=== PATIENT | female | born 1995 | race Caucasian/White ===

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

== ENCOUNTER 2017-03-01 05:29 | Outpatient (CLI) | payer SELFPAY ==
[~2017-03-01] VITALS: Ht 165.1 cm; Wt 64.0 kg
[~2017-03-01 05:29] MED LIST changes: +ONDA4TAB8 PO
== END 2017-03-01 11:32 ==
LOC: PREOP 05:29
PROVIDERS: ATTEND Obstetrics & Gynecology
DX: Z01.818 Encounter for other preprocedural examination (principal); R10.31 Right lower quadrant pain; R10.2 Pelvic and perineal pain

== ENCOUNTER 2017-03-08 08:03 | Day surgery (SDC) | payer SELFPAY ==
[~2017-03-08] VITALS: Ht 165.1 cm; Wt 64.0 kg
[2017-03-08] MEDS ORDERED: LACTATED RINGERS 1,000 ML IV PRN ×2 (08:28)
[2017-03-08 08:33] LABS: BASOPHILS % (AUTO) 0 % (0-10); EOSINOPHILS # (AUTO) 0.2 10^3/uL (0.0-0.3); EOSINOPHILS % (AUTO) 2 % (0-10); LYMPHOCYTES # (AUTO) 2.4 X 10^3 (1.0-4.0); LYMPHOCYTES % (AUTO) 21 % (12-44); MEAN CORPUSCULAR HEMOGLOBIN 30 PG (25-34); MEAN CORPUSCULAR HGB CONC 34 G/DL (32-36); MEAN CORPUSCULAR VOLUME 88 FL (80-99); MEAN PLATELET VOLUME 9.9 FL (7.4-10.4); MONOCYTES # (AUTO) 0.6 X 10^3 (0.0-1.0); MONOCYTES % (AUTO) 5 % (0-12); NEUTROPHILS # (AUTO) 8.2 X 10^3 (1.8-7.8); NEUTROPHILS % (AUTO) 72 % (42-75); PLATELET COUNT 267 10^3/uL (130-400); RED BLOOD COUNT 4.84 10^6/uL (4.35-5.85); RED CELL DISTRIBUTION WIDTH 12.1 % (10.0-14.5); WHITE BLOOD COUNT 11.3 10^3/uL (4.3-11.0)
[2017-03-08 08:50] VITALS: BP 136/71
[2017-03-08] MEDS ORDERED: DEXAMETHASONE 10 MG/ML (DECADRON) 1 ML VIAL ONE (09:06)
[2017-03-08] MEDS ORDERED: proPOfol 200 MG/20 ML (DIPRIVAN) VIAL IV ONE (09:06)
[2017-03-08] MEDS ORDERED: NEOSTIGMINE (BLOXIVERZ ) 1 MG/1ML 10 ML VIAL ONE (09:06)
[2017-03-08] MEDS ORDERED: MIDAZOLAM 2 MG/2 ML (VERSED) VIAL ONE (09:06)
[2017-03-08] MEDS ORDERED: LIDOCAINE PF 2% 5 ML (XYLOCAINE) VIAL ONE (09:06)
[2017-03-08] MEDS ORDERED: GLYCOPYRROLATE 0.2 MG/ML (ROBINUL) 2 ML VIAL ONE (09:06)
[2017-03-08] MEDS ORDERED: ROCURONIUM 50 MG/5 ML (ZEMURON) VIAL IV ONE (09:06)
[2017-03-08] MEDS ORDERED: ONDANSETRON 4 MG/2 ML (SDV) Z0FRAN ONE (09:06)
[2017-03-08] MEDS ORDERED: SEVOFLURANE (ULTANE) 15 ML INHAL SOLN ONE (09:06)
[2017-03-08] MEDS ORDERED: fentaNYL INJECTION 100 MCG/2 ML AMP ONE (09:06)
[2017-03-08] MEDS ORDERED: BUPIVACAINE 0.25% 30 ML (SENSORCAINE) VIAL ONE (09:10)
[2017-03-08] MEDS ORDERED: D5 LR IV SOLUTION 1,000 ML IV SCH (09:25)
--- NOTE | 2017-03-08 09:25 | Progress Note-Pre Operative ---
Pre-Operative Progress Note H&P Reviewed The H&P was reviewed, patient examined and no changes noted. Date Seen by Provider: Mar 08, 2017 Time Seen by Provider: 09:20 Date H&P Reviewed: Mar 08, 2017 Time H&P Reviewed: 09:15 Pre-Operative Diagnosis: CPP, RLQ pain TANGELA COPELAND DO Mar 08, 2017 9:25 am
--- NOTE | 2017-03-08 09:27 | Discharge Inst-Women's Service ---
Discharge Inst-Women's Serv Depart Medication/Instructions New, Converted or Re-Newed RX: RX on Chart Consults/Follow Up Additional Follow Up: Yes Orders/Referrals Dr. Barrios in 2-3 weeks Activity Activity: Activity as Tolerated Driving Instructions: No Driving for 1 Week NO SMOKING: NO SMOKING Nothing Inside Vagina: No Douching, No [place], No Tampons Diet Discharge Diet: No Restrictions Symptoms to Report to : Bleeding Excessive, Pain Increased, Fever Over 101 Degrees F, Vaginal Bleeding Increase, Questions/Concerns For Any Problems or Questions: Contact Your Physician Skin/Wound Care Infection Signs and Symptoms: Increased Redness, Foul Odor of Wound, Increased Drainage, Skin Itchy or Has a Rash, Increased Swelling, Temperature Above 101 F Operative Area Clean and Dry: Keep Incision Clean/Dry Stitches/Rodrick/Dermabond: Dermabond, Care of Stitches Bathing Instructions: TANGELA Lamar DO Mar 08, 2017 9:27 am
[2017-03-08] MEDS ORDERED: IBUP-1773 PO (09:28)
[2017-03-08] MEDS ORDERED: Hydrocodone Bit/Acetaminophen PO (09:28)
[2017-03-08] MEDS ORDERED: ONDANSETRON 4 MG/2 ML (SDV) Z0FRAN IVP PRN ×2 (09:30→10:15)
[2017-03-08] MEDS ORDERED: HYDROcodone/APAP 5 MG/325 MG (LORTAB) TAB PO PRN (09:30)
[2017-03-08] MEDS ORDERED: KETOROLAC 30 MG/ML VIAL IVP ONE (09:30)
[2017-03-08] MEDS ORDERED: IBUPROFEN 600 MG (MOTRIN) TAB PO PRN (09:30)
[2017-03-08] MEDS: HYDROmorphone (DILAUDID) 2 MG/ML VIAL IVP PRN ×4 (10:40→11:10)
--- NOTE | 2017-03-08 11:23 | Anesthesia-General Post-Op ---
General Patient Condition Mental Status/LOC: Same as Preop Cardiovascular: Satisfactory Nausea/Vomiting: Absent Respiratory: Satisfactory Pain: Controlled Complications: Absent Post Op Complications Complications None Follow Up Care/Instructions Patient Instructions None needed. Anesthesia/Patient Condition Patient Condition Patient is doing well, no complaints, stable vital signs, no apparent adverse anesthesia problems. No complications reported per nursing. [place] [facility] [place] Yes RACHEL LAKHANI DO Mar 08, 2017 11:23
[2017-03-08 11:35] VITALS: BP 116/60
[2017-03-08 12:05] VITALS: BP 118/67
[2017-03-08] MEDS ORDERED: HYDROcodone/APAP 5 MG/325 MG (LORTAB) TAB ONE (12:11)
[2017-03-08 12:26] VITALS: BP 118/67
[2017-03-08] MEDS ORDERED: BUPIVACAINE 0.25% 30 ML (SENSORCAINE) VIAL INJ ONE (12:45)
--- NOTE | 2017-03-08 13:13 | OPERATIVE REPORT ---
DATE OF SERVICE: PREOPERATIVE DIAGNOSIS: 1. A 21-year-old female with right lower quadrant pain. 2. Chronic pelvic pain. POSTOPERATIVE DIAGNOSIS: 1. A 21-year-old female with right lower quadrant pain. 2. Chronic pelvic pain. PROCEDURE: Laparoscopic lysis of adhesions. SURGEON: Dr. Tangela Copeland. ANESTHESIA: General endotracheal. EBL: Minimal. URINE OUTPUT : 100 mL clear at the end of the procedure. FLUIDS: 1200 mL of Ringer solution. FINDINGS: An anterior abdominal wall lower pelvic adhesion of the omentum running from the anterior abdominal wall at the level of the uterus all the way up to the right pelvic sidewall at approximately the level of the appendix. Otherwise, grossly normal upper abdominal anatomy and pelvic anatomy. SPECIMEN SENT: None. INDICATIONS FOR PROCEDURE: This 21-year-old female is a self consultation to myself for ongoing issues with chronic pelvic pain. The patient reports in the past year to year and a half she has had significant amounts of pelvic pain, especially whenever she is on her menstrual cycle, which she states lasts anywhere from 7 to 14 days. She was been on Depo-Provera and tried oral contraceptive pills in the past. Neither one of these have helped alleviate her symptoms. She has also been on Motrin, ibuprofen, Aleve and even hydrocodone which none of these have alleviated her symptoms either. I discussed with the patient in the preoperative consultation of proceeding with diagnostic laparoscopy. We discussed the possibility of finding nothing versus the possibility of finding underlying etiology including endometriosis and treatment at that time. After all of the possibilities were discussed and the risk of the procedure discussed with the patient in detail and after all of those were discussed with the patient and her boyfriend, all of their questions were answered. The patient was agreeable to proceed. Consent was obtained in the preoperative area. The patient was taken to the operating room. OPERATIVE REPORT IN DETAIL: Once in the operating room, general anesthesia found to be adequate, placed in dorsal lithotomy position, prepped and draped in normal sterile fashion. A Wahl catheter was placed using sterile technique. A weighted speculum was inserted into the patient's vagina which was used to visualize the cervix. It is grasped at the 12 o'clock position using long Allis clamp. The cervix and uterus is gently sounded using the uterine sound and found to have a cavity depth of [address] a WAFU uterine manipulator at a depth of 8 cm deploying the balloon and remove all the other instruments from the patient's vagina except for the Wahl catheter. This offers excellent bimanual manipulation on palpation of the lower abdomen. I then performed a change of gloves, taking my attention to the abdomen where I infiltrate the infraumbilical area using 0.25% Marcaine to make a 5 mm incision and direct a Veress needle through this incision until intraperitoneal placement was confirmed with a saline drop test. An opening pressure of 4 mmHg was noted. I proceed to mesh pressure of 50 mmHg, at which point I remove the Veress needle and introduce a 5 mm blunt trocar through this incision and confirm intraperitoneal placement using the 5 mm laparoscope. Once this was done, I am able to confirm all of my findings as listed in my findings above. I have the patient placed in steep Trendelenburg to evaluate the pelvis even more thoroughly and there are no abnormalities. Both fallopian tubes, ovaries and uterus all appear grossly normal. No evidence of endometriosis or prior pelvic inflammatory disease or infection. No evidence of hydrosalpinx. The only abnormality I am able to find is adhesions of the omentum to the anterior abdominal wall which I take down using EndoShears without difficulty. I do not have to use monopolar power as there is no bleeding when I take this adhesion down. After which there is no active bleeding noted from any of my dissection planes. I remove the instruments from the patient. I do have to place a second suprapubic trocar that is 5 mm in similar fashion in order to take down these adhesions. At the end of the procedure, I remove the instruments and release insufflation through both of these trocar sites and remove these trocars. The skin is then closed using Dermabond and Band-Aids were placed over this. The Kronner uterine manipulator was removed and the Wahl catheter was removed. The patient tolerated the procedure well and was taken to recovery in stable condition. Lap and sponge counts correct at the end of the procedure. Instrument counts correct as well. Job ID: [id number] DocumentID: [id number] Dictated Date: 03/08/2017 10:38:07 Special Deputy Sheriff Date: 03/08/2017 13:13:39 Dictated By: TANGELA COPELAND DO
== END 2017-03-08 12:26 | disposition home or self-care (01) ==
LOC: SDC 08:03
PROVIDERS: ATTEND Obstetrics & Gynecology
DX: R10.31 Right lower quadrant pain (principal); R10.2 Pelvic and perineal pain; F17.210 Nicotine dependence, cigarettes, uncomplicated; F32.9 Major depressive disorder, single episode, unspecified
CPT/HCPCS: 36415; 84703; 85025; 86850; 86900; 86901

== ENCOUNTER 2017-11-10 00:31 | Emergency (ER) | payer SELFPAY ==
[~2017-11-10] VITALS: Ht 167.6 cm; Wt 68.0 kg
[~2017-11-10 00:31] MED LIST changes: +Hydrocodone Bit/Acetaminophen PO; +IBUP-1773 PO
--- OUTSIDE RECORDS SUMMARY | 2017-11-10 00:40 | XMS REPORT | Continuity of Care Document ---
Author Author [facility] Organization [facility] Address Unknown Phone Unavailable Allergies Active Description Code Type Severity Reaction Onset Reported/Identified Relationship to Patient Clinical Status Yes No Known Drug Allergies [id number] Drug Allergy Unknown N/A 02/26/2008 Yes amoxicillin [id number] Drug Allergy Unknown n/v 11/21/2016 Yes morphine [id number] Drug Allergy Unknown rash 11/21/2016 Medications There is no data. Problems Date Dx Coded Attending Type Code Diagnosis Diagnosed By 06/07/2012 Ot 380.4 IMPACTED CERUMEN 06/07/2012 Ot 388.70 OTALGIA NOS 06/11/2013 ANNMARIE GOMEZ BLUEPRINT CLERK Ot 686.9 LOCAL SKIN INFECTION NOS 06/17/2014 [...] Ot E888.1 FALL STRIKING OBJECT NEC 07/23/2014 STACI AVILA MD Ot 789.00 09/27/2014 STACI AVILA MD Ot 719.43 09/27/2014 STACI AVILA MD Ot 724.5 09/27/2014 STACI AVILA MD Ot 786.50 09/27/2014 STACI AVILA MD Ot 789.01 09/27/2014 STACI AVILA MD Ot 789.00 09/27/2014 ANNMARIE GOMEZ BLUEPRINT CLERK Ot 686.9 LOCAL SKIN INFECTION NOS 09/27/2014 ANNMARIE GOMEZ BLUEPRINT CLERK Ot 709.9 SKIN DISORDER NOS 08/31/2015 NABIL ZABALA Ot R10.84 GENERALIZED ABDOMINAL PAIN 08/31/2015 NABIL ZABALA Ot R11.2 NAUSEA WITH VOMITING, UNSPECIFIED 08/31/2015 STACI AVILA MD Ot 719.43 JOINT PAIN-FOREARM 08/31/2015 STACI AVILA MD Ot 724.5 BACKACHE NOS 08/31/2015 STCAI AVILA MD Ot 786.50 CHEST PAIN NOS 08/31/2015 STACI AVILA MD Ot 789.01 ABDOMINAL PAIN, RIGHT UPPER QUADRANT 08/31/2015 STACI AVILA MD Ot 789.00 ABDOMINAL PAIN, UNSPECIFIED SITE 09/01/2015 NABIL ZABALA Ot R10.84 GENERALIZED ABDOMINAL PAIN 09/01/2015 NABIL [...] Ot L02.412 CUTANEOUS ABSCESS OF LEFT AXILLA 11/17/2015 JAKE RODRICK Ot Z53.9 PROCEDURE AND TREATMENT NOT CARRIED OUT, 11/18/2015 RODRICK JOSEPH DO Ot Z53.9 PROCEDURE AND TREATMENT NOT CARRIED OUT, 06/16/2016 STACI AVILA MD Ot 719.43 JOINT PAIN-FOREARM 06/16/2016 STACI AVILA MD Ot 724.5 BACKACHE NOS 06/16/2016 STACI AVILA MD Ot 786.50 CHEST PAIN NOS 06/16/2016 STACI AVILA MD Ot 789.01 ABDOMINAL PAIN, RIGHT UPPER QUADRANT 06/16/2016 STACI AVILA MD Ot 789.00 ABDOMINAL PAIN, UNSPECIFIED SITE 06/16/2016 ANNMARIE GOMEZ APRN Ot S63.501A UNSPECIFIED SPRAIN OF RIGHT WRIST, INITI 06/16/2016 ANNMARIE GOMEZ APRN Ot S69.91XA UNSP INJURY OF RIGHT WRIST, HAND AND FIN 06/16/2016 ANNMARIE GOMEZ APRN Ot W01.0XXA FALL SAME LEV FROM SLIP/TRIP W/O STRIKE 06/16/2016 ANNMARIE GOMEZ APRN Ot Y99.8 OTHER EXTERNAL CAUSE STATUS 06/22/2016 ANNMARIE GOMEZ APRN Ot S63.501A UNSPECIFIED SPRAIN OF RIGHT WRIST, INITI 06/22/2016 ANNMARIE GOMEZ APRN Ot S69.91XA UNSP INJURY OF RIGHT WRIST, HAND AND FIN 06/22/2016 ANNMARIE GOMEZ APRN Ot W01.0XXA FALL SAME LEV FROM SLIP/TRIP W/O STRIKE 06/22/2016 ANNMARIE GOMEZ APRN Ot Y99.8 OTHER EXTERNAL CAUSE STATUS 09/27/2016 STACI AVILA MD Ot 719.43 JOINT PAIN-FOREARM 09/27/2016 STACI AVILA MD Ot 724.5 BACKACHE NOS 09/27/2016 STACI AVILA MD Ot 786.50 CHEST PAIN NOS 09/27/2016 STACI AVILA MD Ot 789.01 ABDOMINAL PAIN, RIGHT UPPER QUADRANT 09/27/2016 STACI AVILA MD Ot 789.00 ABDOMINAL PAIN, UNSPECIFIED SITE 10/03/2016 SHELTON DESAI DO Ot N92.1 EXCESSIVE AND FREQUENT MENSTRUATION WITH 10/03/2016 SHELTON DESAI DO Ot R10.31 RIGHT LOWER QUADRANT PAIN 10/03/2016 STACI AVILA MD Ot 719.43 JOINT PAIN-FOREARM 10/03/2016 STACI AVILA MD Ot 724.5 BACKACHE NOS 10/03/2016 MARGARITA GONZALES, STACI Pike Ot 786.50 CHEST PAIN NOS 10/03/2016 MARGARITA GONZALES, STACI Pike Ot 789.01 ABDOMINAL PAIN, RIGHT UPPER QUADRANT 10/03/2016 MARGARITA GONZALES, STACI Pike Ot 789.00 ABDOMINAL PAIN, UNSPECIFIED SITE 10/11/2016 DESAI DO, SHELTON C Ot N92.1 EXCESSIVE AND FREQUENT MENSTRUATION WITH 10/11/2016 DESAI DO, SHELTON C Ot R10.31 RIGHT LOWER QUADRANT PAIN 10/11/2016 MARGARITA GONZALES, STACI Pike Ot 719.43 JOINT PAIN-FOREARM 10/11/2016 MARGARITA GONZALES, STACI Pike Ot 724.5 BACKACHE NOS 10/11/2016 MARGARITA GONZALES, STACI Pike Ot 786.50 CHEST PAIN NOS 10/11/2016 MARGARITA GONZALES, STACI Pike Ot 789.01 ABDOMINAL PAIN, RIGHT UPPER QUADRANT 10/11/2016 MARGARITA GONZALES, STACI Pkie Ot 789.00 ABDOMINAL PAIN, UNSPECIFIED SITE 10/11/2016 DESAI DO, SHELTON C Ot N92.1 EXCESSIVE AND FREQUENT MENSTRUATION WITH 10/11/2016 DESAI DO, SHELTON C Ot R10.31 RIGHT LOWER QUADRANT PAIN 11/13/2016 ANNMARIE GOMEZ APRN Ot F41.9 ANXIETY DISORDER, UNSPECIFIED 11/13/2016 ANNMARIE GOMEZ APRN Ot M25.531 PAIN IN RIGHT WRIST 11/13/2016 ANNMARIE GOMEZ BLUEPRINT CLERK Ot S63.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 TRAUM RUPTURE OF [facility] LIGMT OF L IDX FNG 11/13/2016 ANNMARIE GOMEZ APRN Ot W10.1XXA FALL (ON)(FROM) SIDEWALK CURB, INITIAL E 11/13/2016 ANNMARIE GOMEZ APRN Ot Y92.[address] [facility] [address] 11/13/2016 ANNMARIE GOMEZ APRN Ot Z87.19 PERSONAL HISTORY OF OTHER DISEASES OF TH 11/13/2016 ANNMARIE GOMEZ APRN Ot Z87.448 PERSONAL HISTORY OF OTHER DISEASES OF UR 11/18/2016 OMID GONZALES, VINITA Tellez Ot F17.210 NICOTINE DEPENDENCE, CIGARETTES, UNCOMPL 11/18/2016 OMID GONZALES, VINITA Tellez Ot F41.9 ANXIETY DISORDER, UNSPECIFIED 11/18/2016 VINITA ANNE MD Ot R10.31 RIGHT LOWER QUADRANT PAIN 11/18/2016 VINITA ANNE MD Ot R11.2 NAUSEA WITH VOMITING, UNSPECIFIED 11/18/2016 VINITA ANNE MD Ot Z87.19 PERSONAL HISTORY OF OTHER DISEASES OF TH 11/18/2016 VINITA ANNE MD Ot Z87.448 PERSONAL HISTORY OF OTHER DISEASES OF UR 11/21/2016 NABIL ZABALA Ot F17.210 NICOTINE DEPENDENCE, CIGARETTES, UNCOMPL 11/21/2016 NABIL ZABALA Ot F41.9 ANXIETY DISORDER, UNSPECIFIED 11/21/2016 NABIL ZABALA Ot 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, UNSP 11/21/2016 NABIL ZABALA Ot R10.2 PELVIC AND PERINEAL PAIN 11/21/2016 NAIBL ZABALA Ot Z87.19 PERSONAL HISTORY OF OTHER DISEASES OF TH 11/21/2016 NABIL ZABALA Ot Z87.42 PERSONAL HISTORY OF OTH DISEASES OF THE 12/20/2016 RISHI PAL MD Ot F41.9 ANXIETY DISORDER, UNSPECIFIED 12/20/2016 RISHI PAL MD Ot R10.31 RIGHT LOWER QUADRANT PAIN 12/20/2016 RISHI PAL MD Ot Z77.22 CNTCT W AND EXPSR TO ENVIRON TOBACCO SMO 12/20/2016 RISHI PAL MD Ot Z87.19 PERSONAL HISTORY OF OTHER DISEASES OF 12/20/2016 RISHI PAL MD Ot Z87.448 PERSONAL HISTORY OF OTHER DISEASES OF UR 01/01/2017 STACI AVILA MD Ot 719.43 JOINT PAIN-FOREARM 01/01/2017 STACI AVILA MD Ot 724.5 BACKACHE NOS 01/01/2017 STACI AVILA MD Ot 786.50 CHEST PAIN NOS 01/01/2017 STACI AVILA MD Ot 789.01 ABDOMINAL PAIN, RIGHT UPPER QUADRANT 01/01/2017 STACI AVILA MD Ot 789.00 ABDOMINAL PAIN, UNSPECIFIED SITE 01/01/2017 SHELTON DESAI DO Ot N92.1 EXCESSIVE AND FREQUENT MENSTRUATION WITH 01/01/2017 SHELTON DESAI DO Ot R10.31 RIGHT LOWER QUADRANT PAIN 03/01/2017 TANGELA COPELAND DO S Ot R10.2 PELVIC AND PERINEAL PAIN 03/01/2017 TANGELA COPELAND DO Ot R10.31 RIGHT LOWER QUADRANT PAIN 03/01/2017 TANGELA COPELAND DO Ot Z01.818 ENCOUNTER FOR OTHER PREPROCEDURAL EXAMIN 03/08/2017 TANGELA COPELAND DO Ot F17.210 NICOTINE DEPENDENCE, CIGARETTES, UNCOMPL 03/08/2017 TANGELA COPELAND DO Ot F32.9 MAJOR DEPRESSIVE DISORDER, SINGLE EPISOD 03/08/2017 TANGELA COPELAND DO Ot R10.2 PELVIC AND PERINEAL PAIN 03/08/2017 TANGELA COPELAND DO Ot R10.31 RIGHT LOWER QUADRANT PAIN 03/14/2017 TAGNELA COPELAND DO Ot F17.210 NICOTINE DEPENDENCE, CIGARETTES, UNCOMPL 03/14/2017 TANGELA COPELAND DO Ot F32.9 MAJOR DEPRESSIVE DISORDER, SINGLE EPISOD 03/14/2017 TANGELA COPELAND DO Ot R10.2 PELVIC AND PERINEAL PAIN 03/14/2017 TANGELA COPELAND DO Ot R10.31 RIGHT LOWER QUADRANT PAIN 03/21/2017 TANGELA COPELAND DO Ot F17.210 NICOTINE DEPENDENCE, CIGARETTES, UNCOMPL 03/21/2017 TANGELA COPELAND DO Ot F32.9 MAJOR DEPRESSIVE DISORDER, SINGLE EPISOD 03/21/2017 TANGELA COPELAND DO Ot R10.2 PELVIC AND PERINEAL PAIN 03/21/2017 TANGELA COPELAND DO Ot R10.31 RIGHT LOWER QUADRANT PAIN Procedures There is no data. Results Test Result Range Gram stain microscopy - 11/14/15 12:55 GRAM STAIN RESULT FEW GRAM POSITIVE COCCI NRG Bacteria identification in wound by culture - 11/14/15 12:55 Bacteria identification in wound by culture [id number] NR FREE TEXT EXTERNAL SENSITIVITY REPORTED AT 1625, 11-15-15 NRG QUANTITY OF GROWTH Abundant Growth NRG CALL POSITIVES (F1 HELP) CALLED TO ED/MATEUSZ AT 0952, 11-15-2015/KD NRG PBP2 MRSA isolated (Screening test for MRSA is positive) NR Bacterial susceptibility panel - 11/14/15 12:55 Oxacillin susceptibility test by minimum inhibitory concentration > = NRG Gentamicin susceptibility test by minimum inhibitory concentration < = NRG Clindamycin susceptibility test by minimum inhibitory [...] test by minimum inhibitory concentration R NRG Comp. Metabolic Panel (14) - 02/03/16 12:57 Glucose, Serum 98 mg/dL 65-99 BUN 6 mg/dL 6-20 Creatinine, Serum 0.85 mg/dL 0.57-1.00 eGFR If NonAfricn Am 100 mL/min/1.73 >59 eGFR If Africn Am 116 mL/min/1.73 >59 BUN/Creatinine Ratio 7 8-20 Sodium, Serum 144 mmol/L 136-144 Potassium, Serum 4.6 mmol/L 3.5-5.2 Chloride, Serum 106 mmol/L 97-106 Carbon Dioxide, Total 25 mmol/L 18-29 Calcium, Serum 10.0 mg/dL 8.7-10.2 Protein, Total, Serum 7.0 g/dL 6.0-8.5 Albumin, Serum 4.9 g/dL 3.5-5.5 Globulin, Total 2.1 g/dL 1.5-4.5 A/G Ratio 2.3 1.1-2.5 Bilirubin, Total 0.3 mg/dL 0.0-1.2 Alkaline Phosphatase, S 82 IU/L 43-101 AST (SGOT) 21 IU/L 0-40 ALT (SGPT) 23 IU/L 0-32 TSH - 02/03/16 12:57 TSH 1.050 uIU/mL 0.450-4.500 Urine beta human chorionic gonadotropin (hCG) measurement - 11/18/16 06:15 Urine beta human chorionic gonadotropin (hCG) measurement NEGATIVE NEGATIVE Comprehensive metabolic panel - 11/18/16 06:15 Serum or plasma sodium measurement (moles/volume) 142 mmol/L 135-145 Serum or plasma potassium measurement (moles/volume) 3.6 mmol/L 3.6-5.0 Serum or plasma chloride measurement (moles/volume) 112 mmol/L 98-107 Carbon dioxide 18 mmol/L 21-32 Serum or plasma anion gap determination (moles/volume) 12 mmol/L 5-14 Serum or plasma urea nitrogen measurement (mass/volume) 5 mg/dL 7-18 Serum or plasma creatinine measurement (mass/volume) 0.78 mg/dL 0.60-1.30 Serum or plasma urea nitrogen/creatinine mass ratio 6 NRG Serum or plasma creatinine measurement with calculation of estimated glomerular filtration rate > NRG Serum or plasma glucose measurement (mass/volume) 99 mg/dL 70-105 Serum or plasma calcium measurement (mass/volume) 10.1 mg/dL 8.5-10.1 Serum or plasma total bilirubin measurement (mass/volume) 0.4 mg/dL 0.1-1.0 Serum or plasma alkaline phosphatase measurement (enzymatic activity/volume) 92 U/L 40-136 Serum or plasma aspartate aminotransferase measurement (enzymatic activity/ volume) 22 U/L 5-34 Serum or plasma alanine aminotransferase measurement (enzymatic activity/volume ) 29 U/L 0-55 Serum or plasma protein measurement (mass/volume) 7.2 g/dL 6.4-8.2 Serum or plasma albumin measurement (mass/volume) 4.5 g/dL 3.2-4.5 Complete blood count (CBC) with automated white blood cell (WBC) differential - 11/18/16 06:15 Blood leukocytes automated count (number/volume) 9.2 10*3/uL 4.3-11.0 Blood erythrocytes automated count (number/volume) 4.90 10*6/uL 4.35-5.85 Venous blood hemoglobin measurement (mass/volume) 14.6 g/dL 11.5-16.0 Blood hematocrit (volume fraction) 43 % 35-52 Automated erythrocyte mean corpuscular volume 88 [foz_us] 80-99 Automated erythrocyte mean corpuscular hemoglobin (mass per erythrocyte) 30 pg 25-34 Automated erythrocyte mean corpuscular hemoglobin concentration measurement ( mass/volume) 34 g/dL 32-36 Automated erythrocyte distribution width ratio 12.3 % 10.0-14.5 Automated blood platelet count (count/volume) 282 10*3/uL 130-400 Automated blood platelet mean volume measurement 10.8 [foz_us] 7.4-10.4 Automated blood neutrophils/100 leukocytes 53 % 42-75 Automated blood lymphocytes/100 leukocytes 38 % 12-44 Blood monocytes/100 leukocytes 7 % 0-12 Automated blood eosinophils/100 leukocytes 2 % 0-10 Automated blood basophils/100 leukocytes 1 % 0-10 Blood neutrophils automated count (number/volume) 4.9 10*3 1.8-7.8 Blood lymphocytes automated count (number/volume) 3.5 10*3 1.0-4.0 Blood monocytes automated count (number/volume) 0.7 10*3 0.0-1.0 Automated eosinophil count 0.2 10*3/uL 0.0-0.3 Automated blood basophil count (count/volume) 0.1 10*3/uL 0.0-0.1 Complete urinalysis with reflex to culture - 11/18/16 06:25 Urine color determination YELLOW NRG Urine clarity determination CLEAR NRG Urine pH measurement by test strip 6 5-9 Specific gravity of urine by test strip 1.025 1.016- 1.022 Urine protein assay by test strip, semi-quantitative NEGATIVE NEGATIVE Urine glucose detection by automated test strip NEGATIVE NEGATIVE Erythrocytes detection in urine sediment by light microscopy NEGATIVE NEGATIVE Urine ketones detection by automated test strip NEGATIVE NEGATIVE Urine nitrite detection by test strip NEGATIVE NEGATIVE Urine total bilirubin detection by test strip NEGATIVE NEGATIVE Urine urobilinogen measurement by automated test strip (mass/volume) NORMAL NORMAL Urine leukocyte esterase detection by dipstick 1+ NEGATIVE Automated urine sediment erythrocyte count by microscopy (number/high power field) NONE NRG Automated urine sediment leukocyte count by microscopy (number/high power field ) RARE NRG Bacteria detection in urine sediment by light microscopy NEGATIVE NRG Squamous epithelial cells detection in urine sediment by light microscopy 2-5 NRG Crystals detection in urine sediment by light microscopy PRESENT NRG Casts detection in urine sediment by light microscopy NONE NRG Mucus detection in urine sediment by light microscopy LARGE NRG Complete urinalysis with reflex to culture NO NRG Calcium oxalate crystals detection in urine sediment by light microscopy RARE NRG Complete urinalysis with reflex to culture - 11/21/16 15:50 Urine color determination YELLOW NRG Urine clarity determination CLEAR NRG Urine pH measurement by test strip 7 5-9 Specific gravity of urine by test strip 1.010 1.016- 1.022 Urine protein assay by test strip, semi-quantitative NEGATIVE NEGATIVE Urine glucose detection by automated test strip NEGATIVE NEGATIVE Erythrocytes detection in urine sediment by light microscopy NEGATIVE NEGATIVE Urine ketones detection by automated test strip NEGATIVE NEGATIVE Urine nitrite detection by test strip NEGATIVE NEGATIVE Urine total bilirubin detection by test strip NEGATIVE NEGATIVE Urine urobilinogen measurement by automated test strip (mass/volume) NORMAL NORMAL Urine leukocyte esterase detection by dipstick 1+ NEGATIVE Automated urine sediment erythrocyte count by microscopy (number/high power field) NONE NRG Automated urine sediment leukocyte count by microscopy (number/high power field ) [HPF] NRG Bacteria detection in urine sediment by light microscopy NEGATIVE NRG Squamous epithelial cells detection in urine sediment by light microscopy 2-5 NRG Crystals detection in urine sediment by light microscopy NONE NRG Casts detection in urine sediment by light microscopy NONE NRG Mucus detection in urine sediment by light microscopy SMALL NRG Complete urinalysis with reflex to culture NO NRG Complete blood count (CBC) with automated white blood cell (WBC) differential - 11/21/16 15:55 Blood leukocytes automated count (number/volume) 7.7 10*3/uL 4.3-11.0 Blood erythrocytes automated count (number/volume) 4.54 10*6/uL 4.35-5.85 Venous blood hemoglobin measurement (mass/volume) 13.6 g/dL 11.5-16.0 Blood hematocrit (volume fraction) 41 % 35-52 Automated erythrocyte mean corpuscular volume 89 [foz_us] 80-99 Automated erythrocyte mean corpuscular hemoglobin (mass per erythrocyte) 30 pg 25-34 Automated erythrocyte mean corpuscular hemoglobin concentration measurement ( mass/volume) 34 g/dL 32-36 Automated erythrocyte distribution width ratio 12.0 % 10.0-14.5 Automated blood platelet count (count/volume) 254 10*3/uL 130-400 Automated blood platelet mean volume measurement 10.0 [foz_us] 7.4-10.4 Automated blood neutrophils/100 leukocytes 52 % 42-75 Automated blood lymphocytes/100 leukocytes 39 % 12-44 Blood monocytes/100 leukocytes 6 % 0-12 Automated blood eosinophils/100 leukocytes 2 % 0-10 Automated blood basophils/100 leukocytes 1 % 0-10 Blood neutrophils automated count (number/volume) 4.0 10*3 1.8-7.8 Blood lymphocytes automated count (number/volume) 3.0 10*3 1.0-4.0 Blood monocytes automated count (number/volume) 0.4 10*3 0.0-1.0 Automated eosinophil count 0.2 10*3/uL 0.0-0.3 Automated blood basophil count (count/volume) 0.1 10*3/uL 0.0-0.1 Comprehensive metabolic panel - 11/21/16 15:55 Serum or plasma sodium measurement (moles/volume) 139 mmol/L 135-145 Serum or plasma potassium measurement (moles/volume) 3.5 mmol/L 3.6-5.0 Serum or plasma chloride measurement (moles/volume) 108 mmol/L 98-107 Carbon dioxide 27 mmol/L 21-32 Serum or plasma anion gap determination (moles/volume) 4 mmol/L 5-14 Serum or plasma urea nitrogen measurement (mass/volume) 5 mg/dL 7-18 Serum or plasma creatinine measurement (mass/volume) 0.71 mg/dL 0.60-1.30 Serum or plasma urea nitrogen/creatinine mass ratio 7 NRG Serum or plasma creatinine measurement with calculation of estimated glomerular filtration rate > NRG Serum or plasma glucose measurement (mass/volume) 95 mg/dL 70-105 Serum or plasma calcium measurement (mass/volume) 8.9 mg/dL 8.5-10.1 Serum or plasma total bilirubin measurement (mass/volume) 0.2 mg/dL 0.1-1.0 Serum or plasma alkaline phosphatase measurement (enzymatic activity/volume) 80 U/L 40-136 Serum or plasma aspartate aminotransferase measurement (enzymatic activity/ volume) 21 U/L 5-34 Serum or plasma alanine aminotransferase measurement (enzymatic activity/volume ) 29 U/L 0-55 Serum or plasma protein measurement (mass/volume) 6.3 g/dL 6.4-8.2 Serum or plasma albumin measurement (mass/volume) 4.0 g/dL 3.2-4.5 Lipase - 11/21/16 15:55 Lipase 21 U/L 8-78 Serum or plasma C reactive protein measurement (mass/volume) - 11/21/16 15:55 Serum or plasma C reactive protein measurement (mass/volume) 0.02 mg /dL 0.00-0.50 Serum reagin antibody assay (units/volume) by RPR - 11/21/16 15:55 Serum reagin antibody assay (units/volume) by RPR Non-Reactive NRG Bacteria identification in genital specimen by aerobe culture - 11/21/16 18:45 FREE TEXT EXTERNAL PLUS MODERATE NORMAL GURDEEP NRG QUANTITY OF GROWTH Scant Growth NRG Bacteria identification in genital specimen by aerobe culture [id number] NRG Microscopic examination by wet preparation - 11/21/16 18:45 WET PREP RESULTS NO CLUE CELLS OBSERVED NRG Neisseria gonorrhoeae DNA detection by probe and signal amplification method - 11/21/16 18:45 Gonorrhea amp DNA-urine Not Detected Not Detected Chlamydia trachomatis DNA detection by probe and signal amplification method - 11/21/16 18:45 Chlamydia trachomatis DNA detection by probe and target amplification method Not Detected Not Detected Complete blood count (CBC) with automated white blood cell (WBC) differential - 12/19/16 23:32 Blood leukocytes automated count (number/volume) 13.2 10*3/uL 4.3-11.0 Blood erythrocytes automated count (number/volume) 4.65 10*6/uL 4.35-5.85 Venous blood hemoglobin measurement (mass/volume) 13.9 g/dL 11.5-16.0 Blood hematocrit (volume fraction) 40 % 35-52 Automated erythrocyte mean corpuscular volume 87 [foz_us] 80-99 Automated erythrocyte mean corpuscular hemoglobin (mass per erythrocyte) 30 pg 25-34 Automated erythrocyte mean corpuscular hemoglobin concentration measurement ( mass/volume) 34 g/dL 32-36 Automated erythrocyte distribution width ratio 11.9 % 10.0-14.5 Automated blood platelet count (count/volume) 281 10*3/uL 130-400 Automated blood platelet mean volume measurement 10.0 [foz_us] 7.4-10.4 Automated blood neutrophils/100 leukocytes 72 % 42-75 Automated blood lymphocytes/100 leukocytes 21 % 12-44 Blood monocytes/100 leukocytes 6 % 0-12 Automated blood eosinophils/100 leukocytes 1 % 0-10 Automated blood basophils/100 leukocytes 0 % 0-10 Blood neutrophils automated count (number/volume) 9.5 10*3 1.8-7.8 Blood lymphocytes automated count (number/volume) 2.8 10*3 1.0-4.0 Blood monocytes automated count (number/volume) 0.8 10*3 0.0-1.0 Automated eosinophil count 0.2 10*3/uL 0.0-0.3 Automated blood basophil count (count/volume) 0.0 10*3/uL 0.0-0.1 Comprehensive metabolic panel - 12/19/16 23:32 Serum or plasma sodium measurement (moles/volume) 140 mmol/L 135-145 Serum or plasma potassium measurement (moles/volume) 3.5 mmol/L 3.6-5.0 Serum or plasma chloride measurement (moles/volume) 110 mmol/L 98-107 Carbon dioxide 19 mmol/L 21-32 Serum or plasma anion gap determination (moles/volume) 11 mmol/L 5-14 Serum or plasma urea nitrogen measurement (mass/volume) 6 mg/dL 7-18 Serum or plasma creatinine measurement (mass/volume) 0.80 mg/dL 0.60-1.30 Serum or plasma urea nitrogen/creatinine mass ratio 8 NRG Serum or plasma creatinine measurement with calculation of estimated glomerular filtration rate > NRG Serum or plasma glucose measurement (mass/volume) 79 mg/dL 70-105 Serum or plasma calcium measurement (mass/volume) 9.3 mg/dL 8.5-10.1 Serum or plasma total bilirubin measurement (mass/volume) 0.6 mg/dL 0.1-1.0 Serum or plasma alkaline phosphatase measurement (enzymatic activity/volume) 80 U/L 40-136 Serum or plasma aspartate aminotransferase measurement (enzymatic activity/ volume) 14 U/L 5-34 Serum or plasma alanine aminotransferase measurement (enzymatic activity/volume ) 23 U/L 0-55 Serum or plasma protein measurement (mass/volume) 6.8 g/dL 6.4-8.2 Serum or plasma albumin measurement (mass/volume) 4.3 g/dL 3.2-4.5 Serum or plasma C reactive protein measurement (mass/volume) - 12/19/16 23:32 Serum or plasma C reactive protein measurement (mass/volume) 0.10 mg /dL 0.00-0.50 Complete urinalysis with reflex to culture - 12/19/16 23:32 Urine color determination YASH NRG Urine clarity determination CLEAR NRG Urine pH measurement by test strip 6 5-9 Specific gravity of urine by test strip 1.025 1.016- 1.022 Urine protein assay by test strip, semi-quantitative NEGATIVE NEGATIVE Urine glucose detection by automated test strip NEGATIVE NEGATIVE Erythrocytes detection in urine sediment by light microscopy NEGATIVE NEGATIVE Urine ketones detection by automated test strip NEGATIVE NEGATIVE Urine nitrite detection by test strip NEGATIVE NEGATIVE Urine total bilirubin detection by test strip 1+ NEGATIVE Urine urobilinogen measurement by automated test strip (mass/volume) NORMAL NORMAL Urine leukocyte esterase detection by dipstick 2+ NEGATIVE Automated urine sediment erythrocyte count by microscopy (number/high power field) NONE NRG Automated urine sediment leukocyte count by microscopy (number/high power field ) NONE NRG Bacteria detection in urine sediment by light microscopy NEGATIVE NRG Squamous epithelial cells detection in urine sediment by light microscopy 0-2 NRG Crystals detection in urine sediment by light microscopy NONE NRG Casts detection in urine sediment by light microscopy NONE NRG Mucus detection in urine sediment by light microscopy SMALL NRG Complete urinalysis with reflex to culture NO NRG Urine beta human chorionic gonadotropin (hCG) measurement - 12/19/16 23:32 Urine beta human chorionic gonadotropin (hCG) measurement NEGATIVE NEGATIVE Urine drug screening test - 12/19/16 23:32 Urine phencyclidine detection by screening method NEGATIVE NEGATIVE Urine benzodiazepines detection by screening method NEGATIVE NEGATIVE Urine cocaine detection NEGATIVE NEGATIVE Urine amphetamines detection by screening method NEGATIVE NEGATIVE Urine methamphetamine detection by screening method NEGATIVE NEGATIVE Urine cannabinoids detection by screening method POSITIVE NEGATIVE Urine opiates detection by screening method NEGATIVE NEGATIVE Urine barbiturates detection NEGATIVE NEGATIVE Screening urine tricyclic antidepressants detection NEGATIVE NEGATIVE Urine methadone detection by screening method NEGATIVE NEGATIVE Urine oxycodone detection NEGATIVE NEGATIVE Urine propoxyphene detection NEGATIVE NEGATIVE Urine beta human chorionic gonadotropin (hCG) measurement - 03/08/17 08:22 Urine beta human chorionic gonadotropin (hCG) measurement NEGATIVE NEGATIVE Complete blood count (CBC) with automated white blood cell (WBC) differential - 03/08/17 08:24 Blood leukocytes automated count (number/volume) 11.3 10*3/uL 4.3-11.0 Blood erythrocytes automated count (number/volume) 4.84 10*6/uL 4.35-5.85 Venous blood hemoglobin measurement (mass/volume) 14.7 g/dL 11.5-16.0 Blood hematocrit (volume fraction) 43 % 35-52 Automated erythrocyte mean corpuscular volume 88 [foz_us] 80-99 Automated erythrocyte mean corpuscular hemoglobin (mass per erythrocyte) 30 pg 25-34 Automated erythrocyte mean corpuscular hemoglobin concentration measurement ( mass/volume) 34 g/dL 32-36 Automated erythrocyte distribution width ratio 12.1 % 10.0-14.5 Automated blood platelet count (count/volume) 267 10*3/uL 130-400 Automated blood platelet mean volume measurement 9.9 [foz_us] 7.4-10.4 Automated blood neutrophils/100 leukocytes 72 % 42-75 Automated blood lymphocytes/100 leukocytes 21 % 12-44 Blood monocytes/100 leukocytes 5 % 0-12 Automated blood eosinophils/100 leukocytes 2 % 0-10 Automated blood basophils/100 leukocytes 0 % 0-10 Blood neutrophils automated count (number/volume) 8.2 10*3 1.8-7.8 Blood lymphocytes automated count (number/volume) 2.4 10*3 1.0-4.0 Blood monocytes automated count (number/volume) 0.6 10*3 0.0-1.0 Automated eosinophil count 0.2 10*3/uL 0.0-0.3 Automated blood basophil count (count/volume) 0.0 10*3/uL 0.0-0.1 Blood type T Indirect antibody screen panel - 03/08/17 08:24 ABO+Rh group ON NRG Transfusion band number [id number] NRG Blood group antibody screen NEGATIVE NRG Encounters ACCT No. Visit Date/Time Discharge Status Pt. Type Provider Facility Loc./Unit Complaint [id number] 03/08/2017 08:03:00 03/08/2017 12:26:00 DIS Outpatient TANEGLA COPELAND DO Via [facility] SDC RIGHT LOWER QUAD PAIN ,CHRONIC PELVIC PAIN [id number] 03/01/2017 05:29:00 03/01/2017 11:32:00 DIS Outpatient TANGELA COPELAND DO [facility] PREOP RIGHT LOWER QUAD PAIN,CHRONIC PELVIC PAIN [id number] 12/19/2016 21:24:00 12/20/2016 01:37:00 DIS Emergency RISHI PAL MD [facility] ER LOWER ABDOMINAL PAIN [id number] 11/21/2016 13:40:00 11/21/2016 19:30:00 DIS Emergency NABIL ZABALA [facility] ER LOWER RT PELVIC PAIN [id number] 11/18/2016 05:51:00 11/18/2016 08:13:00 DIS Emergency VINITA ANNE MD [facility] ER RT SIDED ABDOMINAL PAIN [id number] 11/13/2016 19:07:00 11/13/2016 20:33:00 DIS Emergency ANNMARIE GOMEZ APRN [facility] ER R WRIST INJ [id number] 10/02/2016 08:51:00 10/02/2016 23:59:59 CLS Outpatient SHELTON DESAI DO [facility] RAD CHRONIC RLQ PAIN, [place] [id number] 06/16/2016 17:44:00 06/16/2016 18:09:00 DIS Emergency ANNMARIE GOMEZ APRN [facility] ER RT WRIST PAIN [id number] 11/17/2015 22:22:00 11/17/2015 22:30:00 DIS Emergency JAKE RODRICK LAGUNA [facility] ER TROUBLE BREATHING;VOMITING ;INFECTION UNDER ARM [id number] 11/14/2015 11:36:00 11/14/2015 13:34:00 DIS Emergency JESSICA CROCKER MD [facility] ER L ARMPIT SWELLING [id number] 08/31/2015 19:22:00 08/31/2015 20:53:00 DIS Emergency NABIL ZABALA [facility] ER VOMITTED BLOOD [id number] 09/27/2014 15:55:00 09/27/2014 16:14:00 DIS Emergency ANNMARIE GOMEZ APRN [facility] ER BUG BITE [id number] 07/06/2014 19:12:00 07/06/2014 22:09:00 DIS Emergency JAKE RODRICK LAGUNA [facility] ER FALL/ L EYE LAC/ SWELLING [id number] 06/26/2014 08:24:00 06/26/2014 23:59:59 CLS Outpatient STACI AVILA MD [facility] RAD ABDOMINAL PAIN RADIATING TO BACK [id number] 06/17/2014 10:49:00 06/17/2014 23:59:59 CLS Outpatient STACI AVILA MD [facility] RAD RT SIDED CHEST AND BACK PAIN, RUQ PAIN [id number] 06/11/2013 12:47:00 06/11/2013 13:31:00 DIS Emergency ANNMARIE GOMEZ APRN [facility] ER RIGHT LEG ABSCESS [id number] 06/05/2013 10:55:00 06/05/2013 23:59:59 CLS Outpatient STACI AVILA MD [facility] RAD LEFT WRIST PAIN [id number] 07/24/2012 08:29:00 07/24/2012 23:59:59 [facility] [id number] 06/17/2014 10:49:00 Document Registration [id number] 06/07/2012 07:32:00 Document Registration [email or web address] 09/28/2014 02:19:12 ACT Document Registration [id number] 02/04/2016 08:48:00 Document Registration
--- OUTSIDE RECORDS SUMMARY | 2017-11-10 00:40 | XMS REPORT ---
Author Author [facility] Address [address] [place] [address] Care Team Providers Care Filling Carrier Name Role Phone [facility] Unavailable PROBLEMS Type Condition ICD9-CM Code [id number] Code Onset Dates Condition Status SNOMED Code Problem Irregular menstrual bleeding N92.6 Active 83513339 Problem Hyperhidrosis L74.519 Active 512852943 Problem Sebaceous cyst of left axilla L72.3 Active 053963027 Problem Anxiety F41.9 Active 84669673 ALLERGIES Substance Reaction Event Type Date Status Acetaminophen Liver problems/Swelling Drug Allergy May, Active SOCIAL HISTORY Never Assessed PLAN OF CARE Activity Details Follow Up 3 Months Reason:pelvic VITAL SIGNS Height 66.0 in 2016-05-25 Weight 146.3 lbs 2016-05-25 Temperature 97.9 degrees Fahrenheit 2016-05-25 Heart Rate 86 bpm 2016-05-25 Respiratory Rate 18 2016-05-25 BMI 23.61 kg/m2 2016-05-25 Blood pressure systolic 116 mmHg 2016-05-25 Blood pressure diastolic 80 mmHg 2016-05-25 MEDICATIONS Medication Instructions Dosage Frequency Start Date End Date Duration Status Clonidine HCl 0.1 MG Orally Once a day 1/2 tablet at bedtime 24h 30 day(s) Active Ortho Tri-Cyclen (28) 0.18/0.215/0.25 MG-35 MCG Orally Once a day 1 tablet 24h May, 28 day(s) Active RESULTS Name Result Date Reference Range TEST, URINE (IN HOUSE) 2016-05-25 RESULTS Negative Lot # [id number] Control + Exp date PROCEDURES Procedure Date Ordered Result Body Site URINE TEST May 25, 2016 IMMUNIZATIONS No Known Immunizations MEDICAL (GENERAL) HISTORY Type Description Date Medical History High Liver Enzymes Surgical History Urethra enlargement 2007 Hospitalization History High Liver enzymes x 3 years ago
--- OUTSIDE RECORDS SUMMARY | 2017-11-10 00:40 | XMS REPORT ---
Author Author IOANA FIGUEROA Organization [facility] Address [address] [place] [address] Care Team Providers Care Pulley Worker Name Role Phone IOANA FIGUEROA Unavailable PROBLEMS Type Condition ICD9-CM Code [id number] Code Onset Dates Condition Status SNOMED Code Problem Irregular menstrual bleeding N92.6 Active 35809465 Problem Hyperhidrosis L74.519 Active 284699631 Problem Sebaceous cyst of left axilla L72.3 Active 647905271 Problem Anxiety F41.9 Active 49966521 ALLERGIES Substance Reaction Event Type Date Status Acetaminophen Liver problems/Swelling Drug Allergy July, Active SOCIAL HISTORY Never Assessed PLAN OF CARE Activity Details Follow Up 1 Year, sooner prn Reason: VITAL SIGNS Height 66.0 in 2016-08-22 Weight 148.6 lbs 2016-08-22 Temperature 97.8 degrees Fahrenheit 2016-08-22 Heart Rate 76 bpm 2016-08-22 Respiratory Rate 18 2016-08-22 BMI 23.98 kg/m2 2016-08-22 Blood pressure systolic 120 mmHg 2016-08-22 Blood pressure diastolic 74 mmHg 2016-08-22 MEDICATIONS Medication Instructions Dosage Frequency Start Date End Date Duration Status Ortho Tri-Cyclen (28) 0.18/0.215/0.25 MG-35 MCG Orally Once a day 1 tablet 24h May, 28 day(s) Active Amoxicillin 875 MG Orally every 12 hrs 1 tablet 12h Aug, Aug, 07 days Active RESULTS Name Result Date Reference Range TEST, URINE (IN HOUSE) 2016-08-22 RESULTS negative Lot # [id number] Control + Exp date 10/2017 TRICHOMONAS (IN HOUSE) 2016-08-22 TRICHOMONAS negative Control + Lot # [id number] Exp date 08/2017 BACTERIAL VAGINOSIS (IN HOUSE) 2016-08-22 RESULTS negative Control + Lot # [id number] Exp date 03/2017 CULTURE, GENITAL 2016-08-22 Genital Culture, Routine Final report Result 1 Result 2 GC/CHLAM PROBE (STATE) 2016-08-22 CHLAMYDIA negative GC negative PROCEDURES Procedure Date Ordered Result Body Site URINE TEST August 22, 2016 TRICHOMONAS ASSAY W/OPTIC August 22, 2016 WATERMAN VAG, DNA, DIR PROBE August 22, 2016 No Charge August 22, 2016 CULTURE, BACTERIA, OTHER August 22, 2016 IMMUNIZATIONS No Known Immunizations MEDICAL (GENERAL) HISTORY Type Description Date Medical History High Liver Enzymes Surgical History Urethra enlargement 2007 Hospitalization History High Liver enzymes x 3 years ago
[2017-11-10] MEDS ORDERED: NS IV 1000 ML 1,000 ML IV SCH (00:51)
--- NOTE | 2017-11-10 00:57 | ED Abdominal Pain ---
General Stated Complaint: LOWER RT FRONT & BACK PAIN Source of Information: Patient, Other Exam Limitations: No Limitations History of Present Illness Date Seen by Provider: Nov 10, 2017 Time Seen by Provider: 00:40 Initial Comments Patient presents to ER by private conveyance with significant other and a chief complaint yesterday she started having some right lower quadrant abdominal pain was dissimilar to her previous right lower pelvic pain. She says in the past Dr. COPELAND has put Rojelio looking for endometriosis but did not find anything. She is on the Depo-Provera shot but do next Sunday for another injection. She' s never had this pain before. She's felt chills all day but no objective fever. She has not taken any Tylenol or Motrin but has had nausea throughout the day. She did take some of her Zofran which worked for about an hour at a time but she took her last one an hour ago. She says the pain radiates to her umbilicus from time to time. She's had no problems with bowel movements and no dysuria. Allergies and Home Medications Allergies Coded Allergies: morphine (Verified Allergy, Unknown, rash, 11/21/16) amoxicillin (Verified Adverse Reaction, Unknown, n/v, 11/21/16) Home Medications Ibuprofen 600 Mg Tablet, 600 MG PO Q6H Prescribed by: TANGELA COPELAND on 03/08/17927 [Hydrocodone Bit/Acetaminophen] Y TAB, 1 TAB PO Q4H PRN for PAIN-MODERATE Prescribed by: TANGELA COPELAND on 03/08/17927 Patient Home Medication List Home Medication List Reviewed: Yes Review of Systems Constitutional: chills, diaphoresis, fever, malaise EENTM: No Blurred Vision, No Double Vision Respiratory: Denies Cough, Denies Shortness of Air Cardiovascular: Denies Chest Pain, Denies Edema Gastrointestinal: Denies Abdomen Distended; Abdominal Pain; Denies Blood Streaked Stools, Denies Constipated; Nausea, Poor Appetite, Vomiting Genitourinary: Denies Burning, Denies Discharge, Denies Flank Pain Musculoskeletal: No back pain, No joint pain Skin: No pruritus, No rash Psychiatric/Neurological: Denies Headache, Denies Numbness Past Yesrcng-Aoveno-Nwtjuv Hx Patient Social History Alcohol Use: Denies Use Recreational Drug Use: No Smoking Status: Current Everyday Smoker Type Used: Cigarettes (0.25 ppd) 2nd Hand Smoke Exposure: Yes Recent Foreign Travel: No Contact w/Someone Who Travel: No Recent Hopitalizations: No Immunizations Up To Date Tetanus Booster (TDap): Less than 5yrs PED Vaccines UTD: No Seasonal Allergies Seasonal Allergies: No Past Medical History Surgeries: Yes (URETHRAL DILATION) Respiratory: No Cardiac: No Neurological: No Reproductive Disorders: Yes (CPP) Female Reproductive Disorders: Ovarian Cyst HIV/AIDS: Yes Genitourinary: No Gastrointestinal: Yes ("LIVER ENZYMES GO UP PERIODICALLY") Liver Disease/Jaundice Musculoskeletal: No Endocrine: No HEENT: No Cancer: No Psychosocial: Yes Anxiety, Depression Integumentary: No Blood Disorders: No Family Medical History No Pertinent Family Hx Physical Exam Vital Signs Vital Signs - First Documented 11/10/17 00:35 Temp 100.2 Pulse 95 Resp 18 B/P (MAP) 111/70 (84) Pulse Ox 99 O2 Delivery Room Air Capillary Refill : Height/Weight/BMI Height: 5'5.00" Weight: 141lbs. 0.0oz. 63.857639mo; 23.5 BMI Method:Stated General Appearance: WD/WN, no apparent distress HEENT: PERRL/EOMI, pharynx normal Respiratory: chest non-tender, no respiratory distress, no accessory muscle use Cardiovascular: normal peripheral pulses, regular rate, rhythm Peripheral Pulses: 2+ Radial Pulses (R), 2+ Radial Pulses (L) Gastrointestinal: normal bowel sounds, no organomegaly (negative for Boogie sign), guarding (right lower quadrant), tenderness (McBurney's point tenderness to palpation as well as rebound tenderness, Rovsing sign positive and psoas sign positive on the right leg.) Neurologic/Psychiatric: alert, normal mood/affect, oriented x 3 Skin: normal color, warm/dry Focused Exam Lactate Level 11/10/17 00:57: Lactic Acid Level 0.82 Lactic Acid Level Laboratory Tests Test 11/10/17 00:57 Lactic Acid Level 0.82 MMOL/L (0.50-2.00) Progress/Results/Core Measures Results/Orders Lab Results Laboratory Tests Test 11/10/17 00:57 11/10/17 02:25 Range/Units White Blood Count 8.5 4.3-11.0 10^3/uL Red Blood Count 4.38 4.35-5.85 10^6/uL Hemoglobin 13.7 11.5-16.0 G/DL Hematocrit 39 35-52 % Mean Corpuscular Volume 89 80-99 FL Mean Corpuscular Hemoglobin 31 25-34 PG Mean Corpuscular Hemoglobin Concent 35 32-36 G/DL Red Cell Distribution Width 12.3 10.0-14.5 % Platelet Count 261 130-400 10^3/uL Mean Platelet Volume 9.9 7.4-10.4 FL Neutrophils (%) (Auto) 47 42-75 % Lymphocytes (%) (Auto) 44 12-44 % Monocytes (%) (Auto) 7 0-12 % Eosinophils (%) (Auto) 2 0-10 % Basophils (%) (Auto) 1 0-10 % Neutrophils # (Auto) 4.0 1.8-7.8 X 10^3 Lymphocytes # (Auto) 3.7 1.0-4.0 X 10^3 Monocytes # (Auto) 0.6 0.0-1.0 X 10^3 Eosinophils # (Auto) 0.1 0.0-0.3 10^3/uL Basophils # (Auto) 0.0 0.0-0.1 10^3/uL Prothrombin Time 14.8 H 12.2-14.7 SEC INR Comment 1.2 0.8-1.4 Activated Partial Thromboplast Time 31 24-35 SEC Sodium Level 140 135-145 MMOL/L Potassium Level 3.7 3.6-5.0 MMOL/L Chloride Level 109 H 98-107 MMOL/L Carbon Dioxide Level 22 21-32 MMOL/L Anion Gap 9 5-14 MMOL/L Blood Urea Nitrogen 9 7-18 MG/DL Creatinine 0.93 0.60-1.30 MG/DL Estimat Glomerular Filtration Rate > 60 BUN/Creatinine Ratio 10 Glucose Level 87 70-105 MG/DL Lactic Acid Level 0.82 0.50-2.00 MMOL/L Calcium Level 9.4 8.5-10.1 MG/DL Corrected Calcium 9.2 8.5-10.1 MG/DL Total Bilirubin 0.3 0.1-1.0 MG/DL Aspartate Amino Transf (AST/SGOT) 17 5-34 U/L Alanine Aminotransferase (ALT/SGPT) 21 0-55 U/L Alkaline Phosphatase 62 40-136 U/L Total Protein 6.5 6.4-8.2 GM/DL Albumin 4.3 3.2-4.5 GM/DL Serum Test, Qualitative NEGATIVE NEGATIVE Urine Color YELLOW Urine Clarity CLEAR Urine pH 8 5-9 Urine Specific [place] 1.010 L 1.016-1.022 Urine Protein 1+ H NEGATIVE Urine Glucose (UA) NEGATIVE NEGATIVE Urine Ketones NEGATIVE NEGATIVE Urine Nitrite NEGATIVE NEGATIVE Urine Bilirubin NEGATIVE NEGATIVE Urine Urobilinogen NORMAL NORMAL MG/DL Urine Leukocyte Esterase NEGATIVE NEGATIVE Urine RBC (Auto) 2+ H NEGATIVE Urine RBC NONE /HPF Urine WBC NONE /HPF Urine Squamous Epithelial Cells 2-5 /HPF Urine Crystals NONE /LPF Urine Bacteria FEW H /HPF Urine Casts NONE /LPF Urine Mucus NEGATIVE /LPF Urine Culture Indicated NO My Orders Orders - RISHI PAL Cbc With Automated Diff (11/10/17 00:51) Comprehensive Metabolic Panel (11/10/17 00:51) Ct Abd/Pelv W (Appendicitis) (11/10/17 00:51) Saline Lock/Iv-Start (11/10/17 00:51) Saline Lock/Iv-Start (11/10/17 00:51) Ns Iv 1000 Ml (Sodium Chloride 0.9%) (11/10/17 00:51) Hcg,Qualitative Serum (11/10/17 00:51) Blood Culture (11/10/17 00:51) Lactic Acid Analyzer (11/10/17 00:51) Ua Culture If Indicated (11/10/17 00:51) Ketorolac Injection (Toradol Injection) (11/10/17 01:00) Ondansetron Injection (Zofran Injectio (11/10/17 01:00) Piperacillin Sodium/Tazobactam (Zosyn Vi (11/10/17 01:00) Blood Culture (11/10/17 01:00) Urine Culture (11/10/17 01:00) Protime With Inr (11/10/17 01:00) Partial Thromboplastin Time (11/10/17 01:00) Saline Lock/Iv-Start (11/10/17 01:00) Saline Lock/Iv-Start (11/10/17 01:00) Vital Signs Adult Sepsis Patie Q15M (11/10/17 01:00) O2 (11/10/17 01:00) Remove Rings In Anticipation O (11/10/17 01:00) Ceftriaxone Injection (Rocephin Injectio (11/10/17 01:00) Saline Lock/Iv-Start (11/10/17 01:03) Ns Iv 500 Ml (Sodium Chloride 0.9%) (11/10/17 01:03) Iohexol Injection (Omnipaque 350 Mg/Ml 1 (11/10/17 01:15) Ns (Ivpb) (Sodium Chloride 0.9%) (11/10/17 01:15) Medications Given in ED Current Medications Medications Dose Ordered Sig/Edward Route Start Time Stop Time Status Last Admin Dose Admin Ceftriaxone Sodium 1000 mg/ Sodium Chloride 50 ml @ 100 mls/hr ONCE ONCE IV 11/10/17 01:00 11/10/17 01:29 DC 11/10/17 01:47 100 MLS/HR Iohexol 100 ml ONCE ONCE IV 11/10/17 01:15 11/10/17 01:16 DC 11/10/17 01:32 100 ML Ketorolac Tromethamine 15 mg ONCE ONCE IVP 11/10/17 01:00 11/10/17 01:01 DC 11/10/17 01:20 15 MG Ondansetron HCl 4 mg ONCE ONCE IVP 11/10/17 01:00 11/10/17 01:01 DC 11/10/17 01:19 4 MG Sodium Chloride 250 ml ONCE ONCE IV 11/10/17 01:15 11/10/17 01:16 DC 11/10/17 01:32 80 ML Sodium Chloride 500 ml @ 0 mls/hr Q0M ONCE IV 11/10/17 01:03 11/10/17 01:04 DC 11/10/17 02:20 1,000 MLS/HR Vital Signs/I&O 11/10/17 00:35 Temp 100.2 Pulse 95 Resp 18 B/P (MAP) 111/70 (84) Pulse Ox 99 O2 Delivery Room Air Progress Progress Note #1: Time: 01:07 Progress Note Clinically the patient has appendicitis. We'll get some labs. We'll talk to the surgeon before getting CT scan. Giving her 20 mL/kg bolus of IV fluids given her tachycardia and fever. We will give her ketorolac for her fever and pain to start as well as some Zofran. We'll obtain a urinalysis, blood cultures and lactate. We'll give her a gram or Rocephin to give her some coverage. Progress Note #2: Time: 02:57 Progress Note No appendicitis seen. White cells are normal. Unexplained fever and pelvic pain could be from PID. She says she was tested 6 months ago for STDs and was negative at that time. She has already received Rocephin so we'll just give her a gram of azithromycin do some STD checks/wet prep and let her go follow-up with her primary care provider. 0310: Patient states she has an appointment with her BELL ATTENDANT on Sunday and has declined doing any vaginal swabs at this time. She says she just wants to go home. Diagnostic Imaging Diagonstic Imaging: CT Plain Films/CT/US/NM/MRI: abdomen, pelvis Comments Negative CT abdomen and pelvis. Normal appendix seen. No evidence of pelvic fluid or inflammation. Incidental left ovarian cyst 1.6 cm. Reviewed: Reviewed by Me Departure Impression Primary Impression: PID (acute pelvic inflammatory disease) Disposition: 01 HOME, SELF-CARE Condition: Improved Departure-Patient Inst. Decision time for Depature: 03:12 Referrals: NO,LOCAL PHYSICIAN (PCP/Family) Primary Care Physician Patient Instructions: Pelvic Inflammatory Disease (DC) Add. Discharge Instructions: Drink plenty of fluids and follow-up with your primary care doctor to schedule appointment Sunday. RISHI PAL Nov 10, 2017 00:57
[2017-11-10] MEDS ORDERED: ONDANSETRON 4 MG/2 ML (SDV) Z0FRAN IVP ONE (01:00)
[2017-11-10] MEDS ORDERED: KETOROLAC 30 MG/ML VIAL IVP ONE (01:00)
[2017-11-10] MEDS ORDERED: PIPERACILLIN SODIUM/TAZOBACTAM 4.5 GM in D5W 100 ML IVPB 100 ML IV ONE (01:00)
[2017-11-10] MEDS ORDERED: cefTRIAXone FOR IV USE 1,000 MG in NS (IVPB) 50 ML IV ONE (01:00)
[2017-11-10] MEDS ORDERED: NS IV 500 ML 500 ML IV ONE (01:03)
[2017-11-10 01:05] LABS: BASOPHILS % (AUTO) 1 % (0-10); EOSINOPHILS # (AUTO) 0.1 10^3/uL (0.0-0.3); EOSINOPHILS % (AUTO) 2 % (0-10); HEMATOCRIT 39 % (35-52); HEMOGLOBIN 13.7 G/DL (11.5-16.0); LYMPHOCYTES # (AUTO) 3.7 X 10^3 (1.0-4.0); LYMPHOCYTES % (AUTO) 44 % (12-44); MEAN CORPUSCULAR HEMOGLOBIN 31 PG (25-34); MEAN CORPUSCULAR HGB CONC 35 G/DL (32-36); MEAN CORPUSCULAR VOLUME 89 FL (80-99); MEAN PLATELET VOLUME 9.9 FL (7.4-10.4); MONOCYTES # (AUTO) 0.6 X 10^3 (0.0-1.0); MONOCYTES % (AUTO) 7 % (0-12); NEUTROPHILS % (AUTO) 47 % (42-75); PLATELET COUNT 261 10^3/uL (130-400); RED BLOOD COUNT 4.38 10^6/uL (4.35-5.85); RED CELL DISTRIBUTION WIDTH 12.3 % (10.0-14.5); WHITE BLOOD COUNT 8.5 10^3/uL (4.3-11.0)
[2017-11-10 01:14] LABS: INR 1.2 (0.8-1.4); PROTHROMBIN TIME PATIENT 14.8 SEC (12.2-14.7)
[2017-11-10] MEDS ORDERED: IOHEXOL 350 MG/ML 100 ML (OMNIPAQUE 350) VIAL IV ONE (01:15)
[2017-11-10] MEDS ORDERED: NS 250 ML (IVPB) BAG IV ONE (01:15)
[2017-11-10 01:16] LABS: ALANINE AMINOTRANSFERASE 21 U/L (0-55); ALBUMIN 4.3 GM/DL (3.2-4.5); ALKALINE PHOSPHATASE 62 U/L (40-136); BILIRUBIN,TOTAL 0.3 MG/DL (0.1-1.0); BUN/CREATININE RATIO 10; CALCIUM 9.4 MG/DL (8.5-10.1); CARBON DIOXIDE 22 MMOL/L (21-32); CHLORIDE 109 MMOL/L (98-107); CREATININE SERUM 0.93 MG/DL (0.60-1.30); GFR ESTIMATED > 60; GLUCOSE 87 MG/DL (70-105); POTASSIUM 3.7 MMOL/L (3.6-5.0); SODIUM 140 MMOL/L (135-145); TOTAL PROTEIN 6.5 GM/DL (6.4-8.2)
[2017-11-10 02:32] LABS: BILIRUBIN,URINE NEGATIVE (NEGATIVE); CLARITY,URINE CLEAR; COLOR,URINE YELLOW; GLUCOSE, URINE (UA) NEGATIVE (NEGATIVE); KETONES,URINE NEGATIVE (NEGATIVE); LEUKOCYTE ESTERASE ,URINE NEGATIVE (NEGATIVE); NITRITE,URINE NEGATIVE (NEGATIVE); PH,URINE 8 (5-9); PROTEIN,URINE 1+ (NEGATIVE); UROBILINOGEN,URINE NORMAL (NORMAL)
[2017-11-10 02:41] LABS: BACTERIA,URINE FEW /HPF
[2017-11-10] MEDS ORDERED: AZITHROMYCIN 250 MG TAB (ZITHROMAX) PO ONE (03:15)
[2017-11-10 03:32] VITALS: BP 114/76
--- NOTE | 2017-11-10 07:02 | Diagnostic Imaging Report ---
PROCEDURE: CT abdomen and pelvis with contrast, rule out appendicitis. TECHNIQUE: Multiple contiguous axial images were obtained through the abdomen and pelvis after the administration of intravenous contrast. INDICATION: Abdominal pain. Comparison made with prior examination 12/20/2016. FINDINGS: The heart size is normal. The lung bases are clear. The liver is normal in size without focal lesions. Gallbladder is contracted. There is no biliary duct dilatation. Spleen is normal. The pancreas, adrenal glands and kidneys are unremarkable. The abdominal aorta is nonaneurysmal. Bowel gas pattern is nonspecific. There is no free air. There is no ascites. There are no focal inflammatory changes. The bladder is normal. Uterus is normal. There is no pelvic mass, adenopathy or free fluid. The osseous structures are unremarkable. IMPRESSION: No acute abnormality in the abdomen or pelvis. Dictated by: Dictated on workstation # [id number]
== END 2017-11-10 03:32 | disposition home or self-care (01) ==
LOC: EDUNIT# 00:31 → ER 00:35
DX: N73.9 Female pelvic inflammatory disease, unspecified (principal); F41.9 Anxiety disorder, unspecified; F32.9 Major depressive disorder, single episode, unspecified; F17.210 Nicotine dependence, cigarettes, uncomplicated; Z87.19 Personal history of other diseases of the digestive system; Z87.448 Personal history of other diseases of urinary system; Z88.5 Allergy status to narcotic agent; Z88.0 Allergy status to penicillin
CPT/HCPCS: 36415; 74177; 80053; 81000; 83605; 84703; 85025; 85610; 85730; 87040; 87088

== ENCOUNTER 2017-12-28 16:46 | Emergency (ER) | payer SELFPAY ==
[~2017-12-28] VITALS: Ht 167.6 cm; Wt 59.0 kg
[2017-12-28] MEDS ORDERED: LORazepam INJ 2 MG/ML (ATIVAN) VIAL IV PRN (17:00)
[2017-12-28] MEDS ORDERED: KETOROLAC 30 MG/ML VIAL IVP ONE (17:00)
--- NOTE | 2017-12-28 17:01 | ED Cough/URI ---
General Chief Complaint: Respiratory Problems Stated Complaint: SOB,CHEST PAIN Source: patient Exam Limitations: no limitations History of Present Illness Date Seen by Provider: Dec 28, 2017 Time Seen by Provider: 16:59 Initial Comments To ER with reports of sudden onset left-sided chest pain described as a tightness as well as shortness of breath. 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 She's never had this before. No fevers or chills. Timing/Duration: just prior to arrival Severity/Quality: moderate Allergies and Home Medications Allergies Coded Allergies: morphine (Verified Allergy, Unknown, rash, 11/21/16) amoxicillin (Verified Adverse Reaction, Unknown, n/v, 11/21/16) Home Medications Ibuprofen 600 Mg Tablet, 600 MG PO Q6H Prescribed by: TANGELA COPELAND on 03/08/17927 [Hydrocodone Bit/Acetaminophen] Y TAB, 1 TAB PO Q4H PRN for PAIN-MODERATE Prescribed by: TANGELA COPELAND on 03/08/17927 Patient Home Medication List Home Medication List Reviewed: Yes Review of Systems Review of Systems Constitutional: see HPI EENTM: see HPI Respiratory: see HPI, short of breath Cardiovascular: see HPI, chest pain Genitourinary: no symptoms reported Musculoskeletal: no symptoms reported Skin: no symptoms reported Psychiatric/Neurological: No Symptoms Reported Hematologic/Lymphatic: No Symptoms Reported Past Vobzudf-Tezltf-Zyebnj Hx Patient Social History Type Used: Cigarettes 2nd Hand Smoke Exposure: Yes Recent Foreign Travel: No Contact w/Someone Who Travel: No Recent Hopitalizations: No Immunizations Up To Date Tetanus Booster (TDap): Less than 5yrs PED Vaccines UTD: No Seasonal Allergies Seasonal Allergies: No Past Medical History Surgeries: Yes (URETHRAL DILATION, laparoscopy ) Respiratory: No Cardiac: No Neurological: No Reproductive Disorders: Yes (CPP) Female Reproductive Disorders: Ovarian Cyst HIV/AIDS: Yes Genitourinary: No Gastrointestinal: Yes ("LIVER ENZYMES GO UP PERIODICALLY") Liver Disease/Jaundice Musculoskeletal: No Endocrine: No HEENT: No Cancer: No Psychosocial: Yes Anxiety, Depression Integumentary: No Blood Disorders: No Family Medical History No Pertinent Family Hx Physical Exam Vital Signs - First Documented 12/28/17 16:47 Temp 98.9 Pulse 75 Resp 17 B/P (MAP) 142/90 (107) Pulse Ox 100 O2 Delivery Room Air Capillary Refill : Height: 5'6.00" Weight: 150lbs. 0.0oz. [id number]; 23.5 BMI Method:Stated General Appearance: WD/WN, no apparent distress, other (tachypneic with respiratory rate of about 30-35 times per minute) Eyes: Bilateral Eye Normal Inspection, Bilateral Eye PERRL, Bilateral Eye EOMI HEENT: PERRL/EOMI, normal ENT inspection Neck: non-tender, full range of motion Respiratory: normal breath sounds, no respiratory distress, no accessory muscle use Cardiovascular: regular rate, rhythm, no murmur Gastrointestinal: normal bowel sounds, non tender, soft Extremities: normal range of motion, non-tender Neurologic/Psychiatric: alert, normal mood/affect, oriented x 3 Skin: normal color, warm/dry Progress/Results/Core Measures Suspected Sepsis SIRS Temperature: Pulse: Respiratory Rate: Laboratory Tests 12/28/17 16:52: White Blood Count 8.7 Blood Pressure / Mean: Laboratory Tests 12/28/17 16:52: Creatinine 1.01, Platelet Count 294, Total Bilirubin 0.4 Results/Orders Lab Results Laboratory Tests Test 12/28/17 16:52 12/28/17 17:11 Range/Units White Blood Count 8.7 4.3-11.0 10^3/uL Red Blood Count 4.92 4.35-5.85 10^6/uL Hemoglobin 15.4 11.5-16.0 G/DL Hematocrit 43 35-52 % Mean Corpuscular Volume 87 80-99 FL Mean Corpuscular Hemoglobin 31 25-34 PG Mean Corpuscular Hemoglobin Concent 36 32-36 G/DL Red Cell Distribution Width 12.4 10.0-14.5 % Platelet Count 294 130-400 10^3/uL Mean Platelet Volume 10.2 7.4-10.4 FL Neutrophils (%) (Auto) 58 42-75 % Lymphocytes (%) (Auto) 36 12-44 % Monocytes (%) (Auto) 5 0-12 % Eosinophils (%) (Auto) 1 0-10 % Basophils (%) (Auto) 1 0-10 % Neutrophils # (Auto) 5.0 1.8-7.8 X 10^3 Lymphocytes # (Auto) 3.1 1.0-4.0 X 10^3 Monocytes # (Auto) 0.5 0.0-1.0 X 10^3 Eosinophils # (Auto) 0.1 0.0-0.3 10^3/uL Basophils # (Auto) 0.0 0.0-0.1 10^3/uL D-Dimer 0.23 0.00-0.49 UG/ML Sodium Level 141 135-145 MMOL/L Potassium Level 3.5 L 3.6-5.0 MMOL/L Chloride Level 109 H 98-107 MMOL/L Carbon Dioxide Level 17 L 21-32 MMOL/L Anion Gap 15 H 5-14 MMOL/L Blood Urea Nitrogen 7 7-18 MG/DL Creatinine 1.01 0.60-1.30 MG/DL Estimat Glomerular Filtration Rate > 60 BUN/Creatinine Ratio 7 Glucose Level 87 70-105 MG/DL Calcium Level 10.5 H 8.5-10.1 MG/DL Corrected Calcium 8.5-10.1 MG/DL Total Bilirubin 0.4 0.1-1.0 MG/DL Aspartate Amino Transf (AST/SGOT) 19 5-34 U/L Alanine Aminotransferase (ALT/SGPT) 25 0-55 U/L Alkaline Phosphatase 72 40-136 U/L Total Protein 8.0 6.4-8.2 GM/DL Albumin 5.0 H 3.2-4.5 GM/DL Urine Opiates Screen NEGATIVE NEGATIVE Urine Oxycodone Screen NEGATIVE NEGATIVE Urine Methadone Screen NEGATIVE NEGATIVE Urine Propoxyphene Screen NEGATIVE NEGATIVE Urine Barbiturates Screen NEGATIVE NEGATIVE Ur Tricyclic Antidepressants Screen NEGATIVE NEGATIVE Urine Phencyclidine Screen NEGATIVE NEGATIVE Urine Amphetamines Screen NEGATIVE NEGATIVE Urine Methamphetamines Screen NEGATIVE NEGATIVE Urine Benzodiazepines Screen NEGATIVE NEGATIVE Urine Cocaine Screen NEGATIVE NEGATIVE Urine Cannabinoids Screen POSITIVE H NEGATIVE My Orders Orders - ANNMARIE GOMEZ APRN Cbc With Automated Diff (12/28/17 16:55) Comprehensive Metabolic Panel (12/28/17 16:55) Urine Bedside (12/28/17 16:55) Drug Screen Stat (Urine) (12/28/17 16:55) Fibrin Degradation Products (12/28/17 16:55) Ekg Tracing (12/28/17 16:55) Continuous Ekg Monitoring (12/28/17 16:55) Iv Heplock-Insert (Order) (12/28/17 16:55) Lorazepam Injection (Ativan Injection) (10/5/18 17:00) Ketorolac Injection (Toradol Injection) (12/28/17 17:00) Chest 1 View, Ap/Pa Only (12/28/17 16:58) Medications Given in ED Current Medications Medications Dose Ordered Sig/Edward Route Start Time Stop Time Status Last Admin Dose Admin Ketorolac Tromethamine 15 mg ONCE ONCE IVP 12/28/17 17:00 12/28/17 17:01 DC 12/28/17 17:10 15 MG Lorazepam 1 mg ONCE PRN IV 12/28/17 17:00 12/28/17 17:10 1 MG Vital Signs/I&O 12/28/17 16:47 Temp 98.9 Pulse 75 Resp 17 B/P (MAP) 142/90 (107) Pulse Ox 100 O2 Delivery Room Air Capillary Refill : Departure Communication (Admissions) 1800-she is sitting upright in bed, no longer tachypneic with normal respiratory pattern. She states she is not feeling any better however. Discussed her normal labs with her and she became irate stating "every time I come to this hospital they tell me it's in my head". She states "I would like to be unhooked from everything and I want to leave!". Boyfriend states that " she thought her pancreas had erupted". She denied abdominal pain nausea or vomiting. Boyfriend apologizes for the patient's behavior and states "I'm sorry , she's just a little upset" Impression Primary Impression: Chest pain Qualified Codes: R07.9 - Chest pain, unspecified Additional Impression: Dyspnea Qualified Codes: R06.02 - Shortness of breath Disposition: 01 HOME, SELF-CARE Condition: Improved Departure-Patient Inst. Decision time for Depature: 17:46 Referrals: NO,LOCAL PHYSICIAN (PCP/Family) Primary Care Physician Patient Instructions: Chest Pain Add. Discharge Instructions: 1. Return to ER for any concernsAll discharge instructions reviewed with patient and/or family. Voiced understanding. ANNMARIE GOMEZ APRN Dec 28, 2017 17:00
[2017-12-28 17:05] LABS: BASOPHILS % (AUTO) 1 % (0-10); EOSINOPHILS # (AUTO) 0.1 10^3/uL (0.0-0.3); EOSINOPHILS % (AUTO) 1 % (0-10); HEMATOCRIT 43 % (35-52); HEMOGLOBIN 15.4 G/DL (11.5-16.0); LYMPHOCYTES # (AUTO) 3.1 X 10^3 (1.0-4.0); LYMPHOCYTES % (AUTO) 36 % (12-44); MEAN CORPUSCULAR HEMOGLOBIN 31 PG (25-34); MEAN CORPUSCULAR HGB CONC 36 G/DL (32-36); MEAN CORPUSCULAR VOLUME 87 FL (80-99); MEAN PLATELET VOLUME 10.2 FL (7.4-10.4); MONOCYTES # (AUTO) 0.5 X 10^3 (0.0-1.0); MONOCYTES % (AUTO) 5 % (0-12); NEUTROPHILS % (AUTO) 58 % (42-75); PLATELET COUNT 294 10^3/uL (130-400); RED BLOOD COUNT 4.92 10^6/uL (4.35-5.85); RED CELL DISTRIBUTION WIDTH 12.4 % (10.0-14.5); WHITE BLOOD COUNT 8.7 10^3/uL (4.3-11.0)
[2017-12-28 17:31] LABS: ALANINE AMINOTRANSFERASE 25 U/L (0-55); ALKALINE PHOSPHATASE 72 U/L (40-136); BILIRUBIN,TOTAL 0.4 MG/DL (0.1-1.0); BUN/CREATININE RATIO 7; CALCIUM 10.5 MG/DL (8.5-10.1); CARBON DIOXIDE 17 MMOL/L (21-32); CHLORIDE 109 MMOL/L (98-107); CREATININE SERUM 1.01 MG/DL (0.60-1.30); GFR ESTIMATED > 60; GLUCOSE 87 MG/DL (70-105); POTASSIUM 3.5 MMOL/L (3.6-5.0); SODIUM 141 MMOL/L (135-145)
--- NOTE | 2017-12-28 17:33 | Diagnostic Imaging Report ---
INDICATION: Left-sided chest pain. COMPARISON: 07/06/2014. FINDINGS: Single view of the chest demonstrates clear lungs bilaterally. The heart is normal. There is no pneumothorax. Osseous structures are normal. IMPRESSION: Negative chest. Dictated by: Dictated on workstation # [id number]
[2017-12-28 17:50] LABS: AMPHETAMINE SCREEN, URINE NEGATIVE (NEGATIVE); BARBITURATE SCREEN URINE NEGATIVE (NEGATIVE); BENZODIAZEPINES SCREEN URINE NEGATIVE (NEGATIVE); CANNABINOID SCREEN, URINE POSITIVE (NEGATIVE); COCAINE SCREEN URINE NEGATIVE (NEGATIVE); METHADONE STAT NEGATIVE (NEGATIVE); METHAMPHETAMINE SCREEN URINE S NEGATIVE (NEGATIVE); OPIATE SCREEN URINE NEGATIVE (NEGATIVE); OXYCODONE STAT NEGATIVE (NEGATIVE); PROPOXYPHENE STAT NEGATIVE (NEGATIVE); TRICYCLIC ANTIDEPRESSANTS SCRE NEGATIVE (NEGATIVE)
[2017-12-28 18:03] VITALS: BP 116/71
== END 2017-12-28 18:03 | disposition home or self-care (01) ==
LOC: EDUNIT# 16:46 → ER 16:48
DX: R07.89 Other chest pain (principal); R06.00 Dyspnea, unspecified; F41.9 Anxiety disorder, unspecified; F32.9 Major depressive disorder, single episode, unspecified; Z88.5 Allergy status to narcotic agent; Z88.0 Allergy status to penicillin; Z77.22 Contact with and (suspected) exposure to environmental tobacco smoke (acute) (chronic); Z87.448 Personal history of other diseases of urinary system; Z87.19 Personal history of other diseases of the digestive system
CPT/HCPCS: 36415; 71045; 80053; 80306; 84703; 85025; 85379; 93005

== ENCOUNTER 2018-03-25 19:43 | Emergency (ER) | payer SELFPAY ==
[~2018-03-25] VITALS: Ht 167.6 cm; Wt 62.6 kg
[~2018-03-25 19:43] MED LIST changes: +METR-143 PO; -METR250T32 PO
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
[2018-03-25 22:31] VITALS: BP 127/87
== END 2018-03-25 22:32 | disposition home or self-care (01) ==
LOC: EDUNIT# 19:43 → ER 19:45
DX: S16.1XXA Strain of muscle, fascia and tendon at neck level, initial encounter (principal); F41.9 Anxiety disorder, unspecified; F32.9 Major depressive disorder, single episode, unspecified; Z88.0 Allergy status to penicillin; Z88.5 Allergy status to narcotic agent; Z77.22 Contact with and (suspected) exposure to environmental tobacco smoke (acute) (chronic); Z98.890 Other specified postprocedural states; Z87.448 Personal history of other diseases of urinary system; Z87.19 Personal history of other diseases of the digestive system; W22.09XA Striking against other stationary object, initial encounter
CPT/HCPCS: 70450; 72125

== ENCOUNTER 2018-06-11 19:13 | Emergency (ER) | payer SELFPAY ==
[~2018-06-11] VITALS: Ht 167.6 cm; Wt 63.5 kg
[2018-06-11 19:59] LABS: BILIRUBIN,URINE NEGATIVE (NEGATIVE); CLARITY,URINE SLIGHTLY CLOUDY; COLOR,URINE YELLOW; GLUCOSE, URINE (UA) NEGATIVE (NEGATIVE); KETONES,URINE NEGATIVE (NEGATIVE); LEUKOCYTE ESTERASE ,URINE 2+ (NEGATIVE); NITRITE,URINE NEGATIVE (NEGATIVE); PH,URINE 5 (5-9); PROTEIN,URINE 1+ (NEGATIVE); UROBILINOGEN,URINE NORMAL (NORMAL)
[2018-06-11 20:07] LABS: BACTERIA,URINE FEW /HPF
[2018-06-11] MEDS ORDERED: PHENAZOPYRIDINE 100 MG (PYRIDIUM) TABLET PO ONE (21:00)
[2018-06-11] MEDS ORDERED: cefTRIAXone FOR IV USE 1,000 MG in WATER (STERILE) FOR INJECTION 10 ML IV ONE (21:00)
[2018-06-11] MEDS ORDERED: KETOROLAC 30 MG/ML VIAL IVP ONE (21:00)
[2018-06-11] MEDS ORDERED: NITR-65 PO (21:02)
[2018-06-11] MEDS ORDERED: NAPR-915 PO (21:02)
[2018-06-11] MEDS ORDERED: PHEN-640 PO (21:02)
--- NOTE | 2018-06-11 21:03 | ED GU-Female ---
General Chief Complaint: C 40A CREW CHIEF Stated Complaint: LOWER ABD PAIN Nursing Triage Note: PT AMB TO ROOM #5 W/O DIFFICULTY. A&OX4. C/O BILAT LOWER ABD CRAMPING. PT STATES, "ABOUT 1700 TODAY I WAS AT WORK, WENT TO THE BATHROOM, FELT THE URGE TO PUSH, AND FELT A BULGE OUT OF MY VAGINA." PT REPORTS SHE HAS FELT ABD CRAMPING FOR APPROX X2 DAYS. PT REPORTS SHE HAS BEEN HAVING HER MENSTRUAL CYCLE FOR APPROX X1 YEAR. PT REPORTS SHE BLEEDS ENOUGH TO SATURATE 1.0-1.5 MAXI PADS PER DAY. REPORTS BURNING AFTER URINATION. Nursing Sepsis Screen: No Definite Risk Source: patient History of Present Illness Date Seen by Provider: Jun 11, 2018 Time Seen by Provider: 19:55 Initial Comments PT ARRIVES VIA POV FROM HOME STATES SHE WAS AT WORK TODAY AND WENT TO THE BATHROOM AROUND 1700, AND HAD THE URGE TO PUSH TO URINATE AND FELT LIKE SOMETHING WAS BULGING IN HER VAGINAL AREA. IS NOT PRESENT NOW. HAS BEEN "DRIBBLING" WHEN SHE URINATES TODAY STATES SHE IS NOT ACTUALLY HAVING PAIN IN VAGINAL AREA HAS BEEN HAVING LOWER ABDOMINAL CRAMPING FOR THE LAST 2 DAYS--FEELS LIKE MENSTRUAL CRAMPS HAS HAS SLIGHT NAUSEA, NOT NOW NO FEVER NO BACK PAIN PT HAS HISTORY OF FREQUENT UTI'S CHILD, HAD URETHRAL DILATION IN 2003, AND NOT HAD ANY FURTHER ISSUES PT HAS BEEN ON HER PERIOD FOR 1 1/2 YEARS--STATES SHE HAD BEEN ON DEPO-PROVERA FOR A YEAR AND IT DID NOT STOP THE BLEEDING, AND 2 MONTHS AGO, DR. COPELAND SWITCHED HER TO OCP'S. DENIES ANY MISSED DOSES. STATES SHE GOES THROUGH 1 1/2 PADS A DAY IS SUPPOSED TO FOLLOW UP WITH HIM IN THE NEXT MONTH. PT ALSO HAS HISTORY OF "ENDOMETRIOSIS" AND HAS HAD LAPAROSCOPY IN THE PAST 2016, FOR CHRONIC PELVIC PAIN PCP: NONE SODA MAKER: DR. COPELAND Allergies and Home Medications Allergies Coded Allergies: morphine (Verified Allergy, Unknown, rash, 11/21/16) amoxicillin (Verified Adverse Reaction, Unknown, n/v, 11/21/16) Home Medications Ibuprofen 600 Mg Tablet, 600 MG PO Q6H Prescribed by: TANGELA COPELAND on 03/08/17 5570 Naproxen 500 Mg Tablet, 500 MG PO BID Prescribed by: RODRICK JOSEPH on 06/11/182101 Nitrofurantoin Monohyd/M-Cryst 100 Mg Capsule, 100 MG PO BID Prescribed by: RODRICK JOSEPH on 06/11/182101 Phenazopyridine HCl 200 Mg Tablet, 1 TAB PO TID Prescribed by: RODRICK JOSEPH on 06/11/182101 [Hydrocodone Bit/Acetaminophen] Y TAB, 1 TAB PO Q4H PRN for PAIN-MODERATE Prescribed by: TANGELA COPELAND on 03/08/17927 Patient Home Medication List Home Medication List Reviewed: Yes Review of Systems Review of Systems Constitutional: no symptoms reported Respiratory: no symptoms reported Cardiovascular: no symptoms reported Gastrointestinal: see HPI Genitourinary: see HPI Musculoskeletal: no symptoms reported Skin: no symptoms reported Psychiatric/Neurological: No Symptoms Reported Endocrine: No Symptoms Reported Hematologic/Lymphatic: See HPI Past Hewfpol-Gakbqk-Cxwsrr Hx Patient Social History Alcohol Use: Denies Use Recreational Drug Use: Yes (THC) Drug of Choice: MARIJUANA Smoking Status: Current Everyday Smoker (1 PPD) Type Used: Cigarettes 2nd Hand Smoke Exposure: Yes Recent Foreign Travel: No Contact w/Someone Who Travel: No Recent Infectious Disease Expo: No Recent Hopitalizations: No Immunizations Up To Date Tetanus Booster (TDap): Less than 5yrs PED Vaccines UTD: No Seasonal Allergies Seasonal Allergies: No Past Medical History Surgeries: Yes (URETHRAL DILATION; 2003; LAPAROSCOPY WITH LYSIS OF ADHESIONS FOR CHRONIC PELVIC PAIN ) Bladder Surgery Respiratory: No Cardiac: No Neurological: No : No Reproductive Disorders: Yes (CHRONIC PELVIC PAIN; DUB) Female Reproductive Disorders: Menstrual Problems, Ovarian Cyst Sexually Transmitted Disease: No (DENIES ON 06/11/18) HIV/AIDS: No (PT ADAMANTLY DENIES HAVING HIV OR AIDS, PER PT ON 06/11/18. ) Genitourinary: Yes UTI (peds) Gastrointestinal: Yes ("LIVER ENZYMES GO UP PERIODICALLY") Liver Disease/Jaundice Musculoskeletal: No Endocrine: No HEENT: No Cancer: No Psychosocial: Yes Eating Disorder, Anxiety, Depression Integumentary: No Blood Disorders: No Family Medical History No Pertinent Family Hx Physical Exam Vital Signs Vital Signs - First Documented 06/11/18 19:35 Temp 99.7 Pulse 107 Resp 16 B/P (MAP) 135/76 (95) Pulse Ox 99 O2 Delivery Room Air Capillary Refill : Less Than 3 Seconds Height, Weight, BMI Height: 5'6.00" Weight: 140lbs. 0.0oz. 63.176230ke; 23.5 BMI Method:Stated General Appearance: no apparent distress, thin, other (MALODOROUS) Neck: normal inspection Cardiovascular: regular rate, rhythm, no murmur Respiratory: normal breath sounds, no respiratory distress, no accessory muscle use Gastrointestinal: normal bowel sounds, soft, tenderness (MILD SUPRAPUBIC TENDERNESS) Genital/Rectal: other (MILD AMOUNT OF BLOOD FROM VAGINA. EXTERNAL GENITAL AREA APPEARS NORMAL OTHERWISE. NO OBVIOUS MASSES OR AREAS OF TENDERNESS. NO EVIDENCE OF CYSTO/RECTOCOELE. 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, no motor/sensory deficits, alert, normal mood/affect, oriented x 3 Skin: normal color, warm/dry Progress/Results/Core Measures Suspected Sepsis Recent Fever Within 48 Hours: No Infection Criteria Present: Suspected New Infection New/Unexplained Altered Menta: No Sepsis Screen: No Definite Risk SIRS Temperature:99.7 Pulse: 107 Respiratory Rate: 16 Blood Pressure 135 /76 Mean: 95 Results/Orders Lab Results Laboratory Tests Test 06/11/18 19:39 Range/Units Urine Color YELLOW Urine Clarity SLIGHTLY CLOUDY Urine pH 5 5-9 Urine Specific [place] 1.020 1.016-1.022 Urine Protein 1+ H NEGATIVE Urine Glucose (UA) NEGATIVE NEGATIVE Urine Ketones NEGATIVE NEGATIVE Urine Nitrite NEGATIVE NEGATIVE Urine Bilirubin NEGATIVE NEGATIVE Urine Urobilinogen NORMAL NORMAL MG/DL Urine Leukocyte Esterase 2+ H NEGATIVE Urine RBC (Auto) 4+ H NEGATIVE Urine RBC 2-5 H /HPF Urine WBC 10-25 H /HPF Urine Squamous Epithelial Cells 5-10 /HPF Urine Crystals NONE /LPF Urine Bacteria FEW H /HPF Urine Casts NONE /LPF Urine Mucus LARGE H /LPF Urine Culture Indicated YES My Orders Orders - RODRICK JOSEPH DO Urine Bedside (06/11/18 19:54) Ua Culture If Indicated (06/11/18 19:54) Urine Culture (06/11/18 19:39) Ceftriaxone For Iv Use (Rocephin For I (06/11/18 21:00) Ketorolac Injection (Toradol Injection) (06/11/18 21:00) Phenazopyridine Tablet (Pyridium Tablet) (06/11/18 21:00) Medications Given in ED Current Medications Medications Dose Ordered Sig/Edward Route Start Time Stop Time Status Last Admin Dose Admin Ceftriaxone Sodium 1000 mg/ Sterile Water 10 ml @ 200 mls/hr ONCE ONCE IV 06/11/18 21:00 06/11/18 21:02 DC 06/11/18 21:09 200 MLS/HR Ketorolac Tromethamine 30 mg ONCE ONCE IVP 06/11/18 21:00 06/11/18 21:01 DC 06/11/18 21:09 30 MG Phenazopyridine HCl 200 mg ONCE ONCE PO 06/11/18 21:00 06/11/18 21:01 DC 06/11/18 21:09 200 MG Vital Signs/I&O 06/11/18 19:35 Temp 99.7 Pulse 107 Resp 16 B/P (MAP) 135/76 (95) Pulse Ox 99 O2 Delivery Room Air Capillary Refill : Less Than 3 Seconds Blood Pressure Mean: 95 Progress Note : Progress Note ADVISED TO FOLLOW UP WITH DR. COPELAND THIS WEEK FOR FURTHER CARE Departure Impression Primary Impression: Urinary tract infection Additional Impression: DUB (dysfunctional uterine bleeding) Disposition: HOME, SELF-CARE Condition: Stable Departure-Patient Inst. Referrals: TANGELA COPELAND,LOCAL PHYSICIAN (PCP) Primary Care Physician Patient Instructions: IRREGULAR VAGINAL BLEEDING, Urinary Tract Infection, Adult (DC) Add. Discharge Instructions: LOTS OF CLEAR LIQUIDS--NO COFFEE, POP OR TEA TYLENOL NEEDED FOR PAIN FOLLOW UP WITH DR. COPELAND THIS WEEK FOR FURTHER CARE All discharge instructions reviewed with patient and/or family. Voiced understanding. Scripts Naproxen (Naproxen) 500 Mg Tablet 500 MG PO BID, #20 TAB Prov: NIKI JOSEPHA K DO 06/11/18 Phenazopyridine HCl (Pyridium) 200 Mg Tablet 1 TAB PO TID for BLADDER DISCOMFORT, #15 TAB Prov: RODRICK JOSEPH K DO 06/11/18 Nitrofurantoin Monohyd/M-Cryst (Macrobid 100 mg Capsule) 100 Mg Capsule 100 MG PO BID, #20 CAP Prov: JAKERODRICK K DO 06/11/18 NIKI JOSEPHA K Jun 11, 2018 21:02
[2018-06-11 21:47] VITALS: BP 124/74
== END 2018-06-11 21:47 | disposition home or self-care (01) ==
LOC: EDUNIT# 19:13 → ER 19:14
DX: N39.0 Urinary tract infection, site not specified (principal); N93.8 Other specified abnormal uterine and vaginal bleeding; F12.10 Cannabis abuse, uncomplicated; F41.9 Anxiety disorder, unspecified; F32.9 Major depressive disorder, single episode, unspecified; F17.210 Nicotine dependence, cigarettes, uncomplicated; Z88.5 Allergy status to narcotic agent; Z88.0 Allergy status to penicillin; Z98.890 Other specified postprocedural states; Z87.448 Personal history of other diseases of urinary system; Z87.19 Personal history of other diseases of the digestive system
CPT/HCPCS: 81000; 84703; 87088; 96374; 96375

== ENCOUNTER → 2018-06-21 | Outpatient (CLI) | payer OTHER ==
[~2018-06-21] MED LIST changes: +NAPR-915 PO; +NITR-65 PO; +PHEN-640 PO
--- NOTE | 2018-06-21 18:44 | Diagnostic Imaging Report ---
INDICATION: Acute onset pelvic pain. TECHNIQUE: Multiple real-time grayscale sonographic images were obtained of the pelvis transabdominally and transvaginally. CORRELATION STUDY: 11/21/2016. FINDINGS: UTERUS: 6.4 x 4.3 x 2.8 cm. The uterus appears unremarkable. ENDOMETRIUM: 1 mm. The endometrium appearing unremarkable. RIGHT OVARY: 2.2 x 1.5 x 1.2 cm. LEFT OVARY: 2.9 x 2.2 x 1.6 cm. Multiple follicles noted of both ovaries. No definitive concerning dominant mass. Blood flow is demonstrated to both ovaries. No significant free pelvic fluid. IMPRESSION: 1. Multiple follicles of both ovaries, likely physiologic. Dictated on workstation # [id number]
== END ==
LOC: RAD 15:08
PROVIDERS: ATTEND Obstetrics & Gynecology
DX: R10.2 Pelvic and perineal pain (principal)
CPT/HCPCS: 76830; 76856

== ENCOUNTER 2018-09-10 16:03 | Emergency (ER) | payer SELFPAY ==
[~2018-09-10] VITALS: Ht 167.6 cm; Wt 61.2 kg
--- NOTE | 2018-09-10 16:24 | ED Integumentary General ---
General Chief Complaint: Skin/Wound Problems Stated Complaint: R LEG SWELLING AND REDNESS Source: patient Exam Limitations: no limitations History of Present Illness Date Seen by Provider: Sep 10, 2018 Time Seen by Provider: 16:08 Initial Comments Here with report of swollen area of the right upper thigh that she is worried IV a spider bite. She noted a spot came up surrounded by red [place] about a week ago and now has gotten worse and she feels a lump underneath it. Reports that it is painful. Denies fevers or red streaks. She does shave in the area of concern. Timing/Duration: week, getting worse Severity: mild Location: extremities Possible Cause: no cause identified Associated Symptoms: edema, swelling/mass/lumps Allergies and Home Medications Allergies Coded Allergies: morphine (Verified Allergy, Unknown, rash, 11/21/16) acetaminophen (Verified Adverse Reaction, Unknown, 09/10/18) made her liver enzyme go up when she was a child. amoxicillin (Verified Adverse Reaction, Unknown, n/v, 11/21/16) Home Medications No Active Prescriptions or Reported Meds Patient Home Medication List Home Medication List Reviewed: Yes Review of Systems Review of Systems Constitutional: see HPI; No chills, No fever Skin: see HPI, change in color, lesions Past Vpwshdr-Vejlod-Lpstns Hx Past Med/Social Hx: Reviewed Nursing Past Med/Soc Hx Patient Social History Alcohol Use: Denies Use Recreational Drug Use: No Drug of Choice: MARIJUANA Smoking Status: Current Everyday Smoker Type Used: Cigarettes 2nd Hand Smoke Exposure: Yes Recent Foreign Travel: No Contact w/Someone Who Travel: No Recent Hopitalizations: No Immunizations Up To Date Tetanus Booster (TDap): Less than 5yrs PED Vaccines UTD: No Seasonal Allergies Seasonal Allergies: No Past Medical History Surgeries: Yes Bladder Surgery Respiratory: No Cardiac: No Neurological: No Reproductive Disorders: Yes (CHRONIC PELVIC PAIN; DUB) Female Reproductive Disorders: Menstrual Problems, Ovarian Cyst Sexually Transmitted Disease: No (DENIES ON 06/11/18) HIV/AIDS: No (PT ADAMANTLY DENIES HAVING HIV OR AIDS, PER PT ON 06/11/18. ) Genitourinary: Yes UTI (peds) Gastrointestinal: Yes ("LIVER ENZYMES GO UP PERIODICALLY") Liver Disease/Jaundice Musculoskeletal: No Endocrine: No HEENT: No Cancer: No Psychosocial: Yes Eating Disorder, Anxiety, Depression Integumentary: No Blood Disorders: No Family Medical History Reviewed Nursing Family Hx No Pertinent Family Hx Physical Exam Vital Signs Capillary Refill : General Appearance: WD/WN, no apparent distress Skin: warm/dry Skin Problem Location: lower extremities Skin Problem Character: erythema, macules, other (small macular pustules surrounded by 1 cm of erythema. There is 0.5 cm area of induration under pustule without fluctuance) Progress/Results/Core Measures Progress Progress Note : Progress Note Seen and evaluated. There is pustule on top of lesion. This was opened with a needle with normal drainage. Covered with antibiotic ointment and Band-Aid. No significant drainage to capture for culture at this time. Discharged home with return precautions. Patient verbalize understanding instructions and agreement with plan. Departure Impression Primary Impression: Folliculitis Disposition: HOME, SELF-CARE Condition: Stable Departure-Patient Inst. Decision time for Depature: 16:23 Referrals: NO,LOCAL PHYSICIAN (PCP/Family) Primary Care Physician Patient Instructions: Folliculitis (DC) Add. Discharge Instructions: All discharge instructions reviewed with patient and/or family. Voiced understanding. Keep wound clean and wash wound twice daily with soap and water. You may use antibiotic ointment plus pain relief to wound twice daily and cover with Band- Aid for the next several days as needed. You may take ibuprofen up to 600 mg every 8 hours as needed for pain. Return for worse pain, increased swelling, fever, red streaks extending up from the wound or other concerns as needed. F ollow-up with your DrJoie in a few days for recheck as needed. Scripts No Active Prescriptions or Reported Meds BRITTANY CUEVAS MD Sep 10, 2018 16:24
[2018-09-10 16:32] VITALS: BP 139/92
== END 2018-09-10 16:32 | disposition home or self-care (01) ==
LOC: EDUNIT# 16:03 → ER 16:04
DX: L73.9 Follicular disorder, unspecified (principal); F41.9 Anxiety disorder, unspecified; F32.9 Major depressive disorder, single episode, unspecified; F17.210 Nicotine dependence, cigarettes, uncomplicated; Z88.5 Allergy status to narcotic agent; Z88.1 Allergy status to other antibiotic agents; Z88.8 Allergy status to other drugs, medicaments and biological substances; Z98.890 Other specified postprocedural states; Z87.440 Personal history of urinary (tract) infections; Z87.19 Personal history of other diseases of the digestive system; Z87.448 Personal history of other diseases of urinary system
CPT/HCPCS: 99282

== ENCOUNTER → 2018-12-16 | Outpatient (CLI) | payer OTHER ==
--- NOTE | 2018-12-16 17:41 | Diagnostic Imaging Report ---
CLINICAL INDICATION: Patient with abnormal uterine bleeding. EXAM: Transabdominal ultrasound of the pelvis. COMPARISON: Ultrasound of the pelvis dated 06/21/2018. FINDINGS: The uterus has normal configuration and echogenicity with no mass seen. The endometrial stripe is 6 mm. There are small follicular cysts involving both ovaries. The right and left ovaries demonstrate normal spectral Doppler waveform and Doppler flow. The right and left ovaries measure 2.9 cm x 1.6 cm x 1.7 cm and 2.8 cm x 2.9 cm x 1.4 cm, respectively. There is trace free fluid in the pelvic cul-de-sac region which is likely physiologic. IMPRESSION: Unremarkable transabdominal ultrasound of the pelvis. Dictated by: Dictated on workstation # [id number]
== END ==
LOC: RAD 14:11
PROVIDERS: ATTEND Nurse Practitioner Women's Health
DX: N93.8 Other specified abnormal uterine and vaginal bleeding (principal)
CPT/HCPCS: 76856

== ENCOUNTER 2019-01-15 10:40 | Outpatient (CLI) | payer OTHER ==
[~2019-01-15] VITALS: Ht 167.7 cm; Wt 60.5 kg
[~2019-01-15 10:40] MED LIST changes: +LEVO1TAB63 PO
== END 2019-01-15 11:00 | disposition home or self-care (01) ==
LOC: PREOP 10:40
PROVIDERS: ATTEND Surgery
DX: Z01.818 Encounter for other preprocedural examination (principal)

== ENCOUNTER 2019-08-24 15:21 | Emergency (ER) | payer SELFPAY ==
[~2019-08-24] VITALS: Ht 167 cm; Wt 60.5 kg
[~2019-08-24 15:21] MED LIST changes: +OMEP20CA18 PO; -TRAM50TA2 PO; +TRM50T PO
[2019-08-24] MEDS ORDERED: NS IV 1000 ML 1,000 ML IV SCH (15:45)
[2019-08-24] MEDS ORDERED: KETOROLAC 30 MG/ML VIAL IVP ONE (15:45)
--- NOTE | 2019-08-24 15:49 | ED Abdominal Pain ---
General Stated Complaint: ABD PAIN Source of Information: Patient Exam Limitations: No Limitations History of Present Illness Date Seen by Provider: August 24, 2019 Time Seen by Provider: 15:47 Initial Comments To ER with right. Umbilical abdominal pain onset last night no nausea. She was seen at [facility] for this today, had negative urine and normal urinalysis done and referred to ER for further workup. Timing/Duration: 1-2 Days Severity/Quality: Moderate Location: RLQ Radiation: No Radiation Activities at Onset: None Associated Symptoms: Nausea/Vomiting Allergies and Home Medications Allergies Coded Allergies: morphine (Verified Allergy, Unknown, rash, 11/21/16) acetaminophen (Verified Adverse Reaction, Unknown, 09/10/18) made her liver enzyme go up when she was a child. amoxicillin (Verified Adverse Reaction, Unknown, n/v, 11/21/16) Home Medications Levonorgestrel-Ethin Estradiol 1 Each Tablet, 1 TAB PO DAILY, (Reported) Omeprazole 20 Mg Capsule.dr, 20 MG PO DAILY Prescribed by: MARIBELL RUSSELL on 01/21/19 1423 Patient Home Medication List Home Medication List Reviewed: Yes Review of Systems Review of Systems Constitutional: see HPI; No chills, No fever EENTM: No Symptoms Reported Respiratory: No Symptoms Reported Cardiovascular: No Symptoms Reported Gastrointestinal: See HPI; Denies Constipated, Denies Diarrhea, Denies Nausea, Denies Vomiting Genitourinary: No Symptoms Reported Musculoskeletal: no symptoms reported Skin: no symptoms reported Psychiatric/Neurological: No Symptoms Reported Endocrine: No Symptoms Reported Hematologic/Lymphatic: No Symptoms Reported Past Gllebbd-Tvsgce-Vxhmdy Hx Patient Social History Drug of Choice: MARIJUANA Type Used: Cigarettes 2nd Hand Smoke Exposure: Yes Recent Foreign Travel: No Contact w/Someone Who Travel: No Recent Hopitalizations: No Immunizations Up To Date Tetanus Booster (TDap): Less than 5yrs PED Vaccines UTD: No Seasonal Allergies Seasonal Allergies: No Past Medical History Surgeries: Yes (DXLS) Bladder Surgery Respiratory: No Cardiac: No Neurological: No Reproductive Disorders: Yes (CHRONIC PELVIC PAIN; DUB) Female Reproductive Disorders: Menstrual Problems Sexually Transmitted Disease: No HIV/AIDS: No Genitourinary: Yes UTI (peds) Gastrointestinal: Yes ("LIVER ENZYMES GO UP PERIODICALLY") Gastroesophageal Reflux, Liver Disease/Jaundice Musculoskeletal: No Endocrine: No HEENT: No Cancer: No Psychosocial: Yes Eating Disorder, Anxiety, Depression Integumentary: No Blood Disorders: No Family Medical History No Pertinent Family Hx Physical Exam Vital Signs Vital Signs - First Documented 08/24/19 15:31 Temp 36.4 Pulse 82 Resp 20 B/P (MAP) 128/80 (96) Pulse Ox 98 O2 Delivery Room Air Capillary Refill : Height/Weight/BMI Height: 5'6.00" Weight: 135lbs. 0.0oz. [id number]; 21.51 BMI Method:Stated General Appearance: WD/WN, no apparent distress HEENT: PERRL/EOMI, normal ENT inspection Respiratory: lungs clear, normal breath sounds, no respiratory distress, no accessory muscle use Cardiovascular: regular rate, rhythm, no murmur Gastrointestinal: normal bowel sounds, soft, tenderness Genital/Rectal: other (Pelvic exam done with Loyda JORDAN at bedside. No cervical motion tenderness, IUD strings visualized, mild-moderate amount of purulent discharge from cervix. ) Extremities: normal range of motion, non-tender Neurologic/Psychiatric: alert, normal mood/affect, oriented x 3 Skin: normal color, warm/dry Progress/Results/Core Measures Results/Orders Lab Results Laboratory Tests Test 08/24/19 15:41 08/24/19 17:06 08/24/19 17:40 Range/Units White Blood Count 14.1 H 4.3-11.0 10^3/uL Red Blood Count 5.21 4.35-5.85 10^6/uL Hemoglobin 16.0 11.5-16.0 G/DL Hematocrit 46 35-52 % Mean Corpuscular Volume 89 80-99 FL Mean Corpuscular Hemoglobin 31 25-34 PG Mean Corpuscular Hemoglobin Concent 35 32-36 G/DL Red Cell Distribution Width 12.2 10.0-14.5 % Platelet Count 285 130-400 10^3/uL Mean Platelet Volume 9.9 7.4-10.4 FL Neutrophils (%) (Auto) 79 H 42-75 % Lymphocytes (%) (Auto) 15 12-44 % Monocytes (%) (Auto) 6 0-12 % Eosinophils (%) (Auto) 0 0-10 % Basophils (%) (Auto) 0 0-10 % Neutrophils # (Auto) 11.1 H 1.8-7.8 X 10^3 Lymphocytes # (Auto) 2.1 1.0-4.0 X 10^3 Monocytes # (Auto) 0.8 0.0-1.0 X 10^3 Eosinophils # (Auto) 0.1 0.0-0.3 10^3/uL Basophils # (Auto) 0.0 0.0-0.1 10^3/uL Neutrophils % (Manual) 78 % Lymphocytes % (Manual) 15 % Monocytes % (Manual) 6 % Eosinophils % (Manual) 1 % Basophils % (Manual) 0 % Band Neutrophils 0 % Blood Morphology Comment NORMAL Sodium Level 138 135-145 MMOL/L Potassium Level 3.8 3.6-5.0 MMOL/L Chloride Level 107 98-107 MMOL/L Carbon Dioxide Level 19 L 21-32 MMOL/L Anion Gap 12 5-14 MMOL/L Blood Urea Nitrogen 9 7-18 MG/DL Creatinine 0.83 0.60-1.30 MG/DL Estimat Glomerular Filtration Rate > 60 BUN/Creatinine Ratio 11 Glucose Level 94 70-105 MG/DL Calcium Level 9.9 8.5-10.1 MG/DL Corrected Calcium 8.5-10.1 MG/DL Total Bilirubin 0.7 0.1-1.0 MG/DL Aspartate Amino Transf (AST/SGOT) 20 5-34 U/L Alanine Aminotransferase (ALT/SGPT) 19 0-55 U/L Alkaline Phosphatase 69 40-136 U/L C-Reactive Protein High Sensitivity 0.04 0.00-0.50 MG/DL Total Protein 7.7 6.4-8.2 GM/DL Albumin 4.9 H 3.2-4.5 GM/DL Serum Test, Qualitative NEGATIVE NEGATIVE Urine Color YELLOW Urine Clarity CLEAR Urine pH 5.5 5-9 Urine Specific [place] <=1.005 1.016-1.022 Urine Protein NEGATIVE NEGATIVE Urine Glucose (UA) NEGATIVE NEGATIVE Urine Ketones 1+ H NEGATIVE Urine Nitrite NEGATIVE NEGATIVE Urine Bilirubin NEGATIVE NEGATIVE Urine Urobilinogen 0.2 < = 1.0 MG/DL Urine Leukocyte Esterase NEGATIVE NEGATIVE Urine RBC (Auto) NEGATIVE NEGATIVE Urine RBC NONE /HPF Urine WBC NONE /HPF Urine Squamous Epithelial Cells NONE /HPF Urine Crystals NONE /LPF Urine Bacteria NEGATIVE /HPF Urine Casts NONE /LPF Urine Mucus NEGATIVE /LPF Urine Culture Indicated NO Micro Results Microbiology 08/24/19 Wet Prep - Final, Complete My Orders Orders - ANNMARIE GOMEZ REGULATORY LEADER Cbc With Automated Diff (08/24/19 15:36) Hs C Reactive Protein (08/24/19 15:36) Comprehensive Metabolic Panel (08/24/19 15:36) Ua Culture If Indicated (08/24/19 15:36) Hcg,Qualitative Serum (08/24/19 15:36) Ct Abd/Pelv W (Appendicitis) (08/24/19 15:36) Ns Iv 1000 Ml (Sodium Chloride 0.9%) (08/24/19 15:45) Ketorolac Injection (Toradol Injection) (08/24/19 15:45) Manual Differential (08/24/19 15:41) Iohexol Injection (Omnipaque 350 Mg/Ml 1 (08/24/19 16:30) Received Contrast (Hold Metformin- Contr (08/24/19 16:30) Ns (Ivpb) (Sodium Chloride 0.9% Ivpb Bag (08/24/19 16:30) Wet Prep (08/24/19 16:36) Chlamydia Trachomatis Swab (08/24/19 16:36) Neisseria Gonorrhea Swab (08/24/19 16:36) Fentanyl Injection (Sublimaze Injection (08/24/19 17:15) Genital Culture (08/24/19 17:59) Rocephin 1 Gm Iv (1x Dose) (08/24/19 18:15) Azithromycin Tablet (Zithromax Tablet) (08/24/19 18:15) Medications Given in ED Current Medications Medications Dose Ordered Sig/Edward Route Start Time Stop Time Status Last Admin Dose Admin Fentanyl Citrate 50 mcg ONCE ONCE IVP 08/24/19 17:15 08/24/19 17:16 DC 08/24/19 17:13 50 MCG Iohexol 75 ml ONCE ONCE IV 08/24/19 16:30 08/24/19 16:31 DC 08/24/19 16:33 73 ML Ketorolac Tromethamine 15 mg ONCE ONCE IVP 08/24/19 15:45 08/24/19 15:47 DC 08/24/19 15:55 15 MG Sodium Chloride 100 ml ONCE ONCE IV 08/24/19 16:30 08/24/19 16:31 DC 08/24/19 16:34 80 ML Vital Signs/I&O 08/24/19 15:31 Temp 36.4 Pulse 82 Resp 20 B/P (MAP) 128/80 (96) Pulse Ox 98 O2 Delivery Room Air Diagnostic Imaging Diagonstic Imaging: CT Comments NAME: GARRY AREVALO [facility] REC#: [id number] PT STATUS: REG ER : 1995 PHYSICIAN: ANNMARIE GOMEZ APRN ADMIT DATE: 08/24/19/ER Signed Date of Exam:08/24/19 CT ABD/PELV W (APPENDICITIS) PROCEDURE: CT abdomen and pelvis with contrast, rule out appendicitis. TECHNIQUE: Multiple contiguous axial images were obtained through the abdomen and pelvis after the administration of intravenous contrast. All CT scans use one or more of the following dose optimizing techniques: automated exposure control, MA and/or KvP adjustment based on patient size and exam type or iterative reconstruction. INDICATION: Abdominal pain. COMPARISON: 11/10/2017. FINDINGS: The lung bases are clear. The liver, spleen, adrenal glands, pancreas and gallbladder are unremarkable. The bilateral kidneys are unremarkable. No aneurysmal dilatation of the abdominal aorta. Intrauterine device is in place. No abnormal adnexal mass lesion. No bowel obstruction or pneumatosis. The appendix is not definitely identified, though no significant inflammatory stranding is noted within the right lower quadrant. No significant adenopathy, free air or free fluid within the abdomen or pelvis. No acute osseous abnormality. IMPRESSION: 1. Although the appendix is not definitely seen, there are no secondary signs of acute appendicitis. 2. Intrauterine device is in place. Dictated by: Dictated on workstation # [id number] Dict: 08/24/19 1641 Trans: 08/24/19 165 [facility] [id number] Interpreted by: ELI OLIVARES MD Electronically signed by: ELI OLIVARES MD 08/24/19 165 Departure Communication (Admissions) [phone] with her the differential diagnosis which would include pelvic inflammatory disease as appendicitis though there is no evidence of that on CT but it's not well visualized. For this reason we cannot exclude it. I gave the patient 2 options, we could treat for pelvic infection and discharge to home with the knowledge that appendicitis is not completely ruled out and she should return for any worsening pain, fevers vomiting or other symptoms. Option two is that we could admit her to the hospital overnight for observation and surgery consultation tomorrow. She would prefer to treat for pelvic infection and go home, returning for any worsening symptoms. Impression Primary Impression: PID (acute pelvic inflammatory disease) Disposition: HOME, SELF-CARE Condition: Stable Departure-Patient Inst. Decision time for Depature: 17:43 Referrals: NO,LOCAL PHYSICIAN (PCP/Family) Primary Care Physician Patient Instructions: Pelvic Inflammatory Disease, Acute Abdomen (Belly Pain), Adult (DC) Add. Discharge Instructions: 1. Return to ER for any worsening pain fevers vomiting or other concerns. Follow-up with your doctor this week for recheck. Medication as directed. Scripts Metronidazole (Flagyl) 500 Mg Tablet 500 MG PO BID, #14 TAB Prov: ANNMARIE GOMEZ APRN 08/24/19 ANNMARIE GOMEZ APRN August 24, 2019 15:49
[2019-08-24 15:50] LABS: BASOPHILS % (AUTO) 0 % (0-10); EOSINOPHILS # (AUTO) 0.1 10^3/uL (0.0-0.3); EOSINOPHILS % (AUTO) 0 % (0-10); HEMATOCRIT 46 % (35-52); LYMPHOCYTES # (AUTO) 2.1 X 10^3 (1.0-4.0); LYMPHOCYTES % (AUTO) 15 % (12-44); MEAN CORPUSCULAR HEMOGLOBIN 31 PG (25-34); MEAN CORPUSCULAR HGB CONC 35 G/DL (32-36); MEAN CORPUSCULAR VOLUME 89 FL (80-99); MEAN PLATELET VOLUME 9.9 FL (7.4-10.4); MONOCYTES # (AUTO) 0.8 X 10^3 (0.0-1.0); MONOCYTES % (AUTO) 6 % (0-12); NEUTROPHILS # (AUTO) 11.1 X 10^3 (1.8-7.8); NEUTROPHILS % (AUTO) 79 % (42-75); PLATELET COUNT 285 10^3/uL (130-400); RED CELL DISTRIBUTION WIDTH 12.2 % (10.0-14.5); WHITE BLOOD COUNT 14.1 10^3/uL (4.3-11.0)
[2019-08-24 16:09] LABS: ALBUMIN 4.9 GM/DL (3.2-4.5); CHLORIDE 107 MMOL/L (98-107); POTASSIUM 3.8 MMOL/L (3.6-5.0); SODIUM 138 MMOL/L (135-145)
[2019-08-24 16:10] LABS: CALCIUM 9.9 MG/DL (8.5-10.1)
[2019-08-24 16:11] LABS: GLUCOSE 94 MG/DL (70-105); TOTAL PROTEIN 7.7 GM/DL (6.4-8.2)
[2019-08-24 16:12] LABS: CARBON DIOXIDE 19 MMOL/L (21-32)
[2019-08-24 16:13] LABS: BILIRUBIN,TOTAL 0.7 MG/DL (0.1-1.0)
[2019-08-24 16:14] LABS: ALKALINE PHOSPHATASE 69 U/L (40-136)
[2019-08-24 16:15] LABS: CREATININE SERUM 0.83 MG/DL (0.60-1.30); GFR ESTIMATED > 60
[2019-08-24 16:16] LABS: BUN/CREATININE RATIO 11
[2019-08-24 16:18] LABS: ALANINE AMINOTRANSFERASE 19 U/L (0-55)
[2019-08-24] MEDS ORDERED: HOLD METFORMIN - RECEIVED CONTRAST 20 ML VIAL IV SCH (16:30)
[2019-08-24] MEDS ORDERED: IOHEXOL 350 MG/ML 100 ML (OMNIPAQUE 350) VIAL IV ONE (16:30)
[2019-08-24] MEDS ORDERED: NS 100 ML (IVPB) BAG IV ONE (16:30)
[2019-08-24 16:34] LABS: BAND NEUTROPHILS 0 %; BASOPHILS % (MANUAL) 0 %; EOSINOPHILS % (MANUAL) 1 %; LYMPHOCYTES % (MANUAL) 15 %; MONOCYTES % (MANUAL) 6 %; NEUTROPHILS % (MANUAL) 78 %; RBC MORPH NORMAL
--- NOTE | 2019-08-24 16:52 | Diagnostic Imaging Report ---
PROCEDURE: CT abdomen and pelvis with contrast, rule out appendicitis. TECHNIQUE: Multiple contiguous axial images were obtained through the abdomen and pelvis after the administration of intravenous contrast. All CT scans use one or more of the following dose optimizing techniques: automated exposure control, MA and/or KvP adjustment based on patient size and exam type or iterative reconstruction. INDICATION: Abdominal pain. COMPARISON: 11/10/2017. FINDINGS: The lung bases are clear. The liver, spleen, adrenal glands, pancreas and gallbladder are unremarkable. The bilateral kidneys are unremarkable. No aneurysmal dilatation of the abdominal aorta. Intrauterine device is in place. No abnormal adnexal mass lesion. No bowel obstruction or pneumatosis. The appendix is not definitely identified, though no significant inflammatory stranding is noted within the right lower quadrant. No significant adenopathy, free air or free fluid within the abdomen or pelvis. No acute osseous abnormality. IMPRESSION: 1. Although the appendix is not definitely seen, there are no secondary signs of acute appendicitis. 2. Intrauterine device is in place. Dictated by: Dictated on workstation # [id number]
[2019-08-24] MEDS ORDERED: fentaNYL INJECTION 100 MCG/2 ML AMP IVP ONE ×2 (17:15→18:15)
[2019-08-24 17:23] LABS: BILIRUBIN,URINE NEGATIVE (NEGATIVE); CLARITY,URINE CLEAR; COLOR,URINE YELLOW; GLUCOSE, URINE (UA) NEGATIVE (NEGATIVE); KETONES,URINE 1+ (NEGATIVE); LEUKOCYTE ESTERASE ,URINE NEGATIVE (NEGATIVE); NITRITE,URINE NEGATIVE (NEGATIVE); PH,URINE 5.5 (5-9); PROTEIN,URINE NEGATIVE (NEGATIVE)
[2019-08-24 17:34] LABS: BACTERIA,URINE NEGATIVE /HPF
[2019-08-24] MEDS ORDERED: METR500T PO (18:09)
[2019-08-24] MEDS ORDERED: cefTRIAXone FOR IV USE 1,000 MG in WATER (STERILE) FOR INJECTION 10 ML IV ONE (18:15)
[2019-08-24] MEDS ORDERED: metroNIDAZOLE 500 MG (FLAGYL) TAB PO ONE (18:15)
[2019-08-24] MEDS ORDERED: AZITHROMYCIN 250 MG TAB (ZITHROMAX) PO SCH (18:15)
[2019-08-24 19:05] VITALS: BP 140/102
[2019-08-25] MEDS ORDERED: TRM50T PO (17:10)
== END 2019-08-24 18:44 | disposition home or self-care (01) ==
LOC: EDUNIT# 15:21 → ER 15:22
DX: N73.0 Acute parametritis and pelvic cellulitis (principal); K21.9 Gastro-esophageal reflux disease without esophagitis; Z88.6 Allergy status to analgesic agent; Z88.5 Allergy status to narcotic agent; Z88.0 Allergy status to penicillin; Z77.22 Contact with and (suspected) exposure to environmental tobacco smoke (acute) (chronic)
CPT/HCPCS: 36415; 74177; 80053; 81000; 84703; 85007; 85027; 86141; 87070; 87205; 87210; 87491; 87591; 96361; 96374; 96375; 96376; 99282

== ENCOUNTER 2020-10-15 11:52 | Emergency (ER) | payer SELFPAY ==
[~2020-10-15] VITALS: Ht 170 cm; Wt 77.1 kg
[~2020-10-15 11:52] MED LIST changes: +METR500T PO; -SULF1TAB35 PO; +SULF1TAB38 PO
[2020-10-15 12:59] LABS: BILIRUBIN,URINE NEGATIVE (NEGATIVE); CLARITY,URINE CLEAR; COLOR,URINE YELLOW; GLUCOSE, URINE (UA) NEGATIVE (NEGATIVE); KETONES,URINE NEGATIVE (NEGATIVE); LEUKOCYTE ESTERASE ,URINE NEGATIVE (NEGATIVE); NITRITE,URINE NEGATIVE (NEGATIVE); PH,URINE 5.5 (5-9); PROTEIN,URINE NEGATIVE (NEGATIVE)
[2020-10-15 13:07] LABS: BACTERIA,URINE NEGATIVE /HPF; RBC,URINE RARE /HPF; SQUAMOUS EPITHELIAL CELL,UR 0-2 /HPF; WBC,URINE RARE /HPF
--- NOTE | 2020-10-15 13:13 | ED GU-Female ---
General Chief Complaint: Abdominal/GI Problems Stated Complaint: 4-6 WK PREG; R LOWER ABD PAIN Nursing Triage Note: PT C/O RLQ ABDOMINAL PAIN THAT BEGAN TODAY. PT C/O NAUSEA. PT C/O GREEN VAGINAL DISCHARGE. History of Present Illness Date Seen by Provider: Oct 15, 2020 Time Seen by Provider: 12:00 Initial Comments 25-year-old female reports for right lower quadrant pain that began at approximately 0900 today, rating it 4/10. She had a positive test 3 days ago. This is her first . She denies any spotting or bloody vaginal discharge. She reports an occasional green discharge. No history of STIs. She had an IUD that was removed approximately [address] Larsen. She has had her appendix removed. She reports mild nausea that is been present for approximately 2 weeks now increased today. She has not taken any medication prior to arrival for the pain. She is denying any need for pain medication or nausea medication. She was evaluated at the OB clinic at [facility] and referred here, for possible ectopic . Timing/Duration: this morning Severity/Quality: mild Location: RLQ Radiation: none Activities at Onset: none Prior Genitourinary Problems: none Modifying Factors: Improves With Lying down, Improves With Resting Associated Symptoms: abdominal pain; No diaphoresis, No dysuria, No fever/chills, No loss of bladder control, No lower back pain, No lumps, No mass; nausea/vomiting; No polyuria, No swelling, No syncope, No urinary frequency Allergies and Home Medications Allergies Coded Allergies: morphine (Verified Allergy, Unknown, rash, 11/21/16) acetaminophen (Verified Adverse Reaction, Unknown, 09/10/18) made her liver enzyme go up when she was a child. amoxicillin (Verified Adverse Reaction, Unknown, n/v, 11/21/16) Home Medications Tramadol HCl 50 Mg Tablet, 50 MG PO Q8H PRN for PAIN-MODERATE (5-7) Prescribed by: BISI TRONCOSO on 08/25/19 4216 Patient Home Medication List Home Medication List Reviewed: Yes Review of Systems Review of Systems Constitutional: no symptoms reported, see HPI Gastrointestinal: RLQ, see HPI Genitourinary: see HPI, discharge (Occasional green); denies dysuria, denies frequency, denies flank pain, denies hematuria, denies pain, denies urgency : Yes LMP: Sep 11, 2020 Musculoskeletal: no symptoms reported, see HPI Past Axsiirr-Wqyxxm-Fdczxx Hx Patient Social History Tobacco Use?: Yes Tobacco type used: Cigarettes Smoking Status: Current Everyday Smoker Substance use?: Yes Substance type: Marijuana Alcohol Use?: No Pt feels they are or have been: No Immunizations Up To Date Tetanus Booster (TDap): Less than 5yrs PED Vaccines UTD: No Seasonal Allergies Seasonal Allergies: No Past Medical History Surgeries: Yes (DXLS) Bladder Surgery Respiratory: No Cardiac: No Neurological: No Reproductive Disorders: Yes (CHRONIC PELVIC PAIN; DUB) Female Reproductive Disorders: Menstrual Problems, Endometriosis Sexually Transmitted Disease: No HIV/AIDS: No Genitourinary: Yes UTI (peds) Gastrointestinal: Yes ("LIVER ENZYMES GO UP PERIODICALLY") Gastroesophageal Reflux, Liver Disease/Jaundice Musculoskeletal: No Endocrine: No HEENT: No Cancer: No Psychosocial: Yes Eating Disorder, Anxiety, Depression Integumentary: No Blood Disorders: No Family Medical History Reviewed Nursing Family Hx Diabetes mellitus 19 MOTHER COPD, Diabetes Physical Exam Vital Signs Vital Signs - First Documented 10/15/20 12:25 Temp 36.7 Pulse 81 Resp 18 B/P (MAP) 138/83 (101) Pulse Ox 100 O2 Delivery Room Air Capillary Refill : Less Than 3 Seconds Height, Weight, BMI Height: 5'6.00" Weight: 135lbs. 0.0oz. 61.079266ft; 26.00 BMI Method:Stated General Appearance: WD/WN, mild distress (Secondary to pain) Neck: non-tender, full range of motion, supple, normal inspection Cardiovascular: normal peripheral pulses, regular rate, rhythm, no edema Respiratory: chest non-tender, lungs clear, normal breath sounds Gastrointestinal: normal bowel sounds, soft; No distended, No guarding, No rebound; tenderness (Trace tenderness palpation along the right upper and lower quadrant.) Back: normal inspection, no CVA tenderness, no vertebral tenderness Extremities: normal range of motion, non-tender, normal inspection, no pedal edema Neurologic/Psychiatric: no motor/sensory deficits, alert, normal mood/affect, oriented x 3 Skin: normal color, warm/dry Progress/Results/Core Measures Suspected Sepsis SIRS Temperature: Pulse: 81 Respiratory Rate: 18 Laboratory Tests 10/15/20 13:45: White Blood Count 11.6H Blood Pressure 138 /83 Mean: 101 Laboratory Tests 10/15/20 13:45: Creatinine 0.75, Platelet Count 303, Total Bilirubin 0.6 Results/Orders Lab Results Laboratory Tests Test 10/15/20 12:40 10/15/20 13:45 Range/Units Urine Color YELLOW Urine Clarity CLEAR Urine pH 5.5 5-9 Urine Specific [place] >=1.030 1.016-1.022 Urine Protein NEGATIVE NEGATIVE Urine Glucose (UA) NEGATIVE NEGATIVE Urine Ketones NEGATIVE NEGATIVE Urine Nitrite NEGATIVE NEGATIVE Urine Bilirubin NEGATIVE NEGATIVE Urine Urobilinogen 0.2 < = 1.0 MG/DL Urine Leukocyte Esterase NEGATIVE NEGATIVE Urine RBC (Auto) NEGATIVE NEGATIVE Urine RBC RARE /HPF Urine WBC RARE /HPF Urine Squamous Epithelial Cells 0-2 /HPF Urine Crystals NONE /LPF Urine Bacteria NEGATIVE /HPF Urine Casts NONE /LPF Urine Mucus SMALL H /LPF Urine Culture Indicated NO White Blood Count 11.6 H 4.3-11.0 10^3/uL Red Blood Count 4.91 3.80-5.11 10^6/uL Hemoglobin 15.5 11.5-16.0 g/dL Hematocrit 45 35-52 % Mean Corpuscular Volume 92 80-99 fL Mean Corpuscular Hemoglobin 32 25-34 pg Mean Corpuscular Hemoglobin Concent 34 32-36 g/dL Red Cell Distribution Width 11.7 10.0-14.5 % Platelet Count 303 130-400 10^3/uL Mean Platelet Volume 9.6 9.0-12.2 fL Immature Granulocyte % (Auto) 0 % Neutrophils (%) (Auto) 75 42-75 % Lymphocytes (%) (Auto) 19 12-44 % Monocytes (%) (Auto) 6 0-12 % Eosinophils (%) (Auto) 0 0-10 % Basophils (%) (Auto) 0 0-10 % Neutrophils # (Auto) 8.7 H 1.8-7.8 10^3/uL Lymphocytes # (Auto) 2.2 1.0-4.0 10^3/uL Monocytes # (Auto) 0.7 0.0-1.0 10^3/uL Eosinophils # (Auto) 0.0 0.0-0.3 10^3/uL Basophils # (Auto) 0.1 0.0-0.1 10^3/uL Immature Granulocyte # (Auto) 0.0 0.0-0.1 10^3/uL Sodium Level 139 135-145 MMOL/L Potassium Level 3.8 3.6-5.0 MMOL/L Chloride Level 106 98-107 MMOL/L Carbon Dioxide Level 20 L 21-32 MMOL/L Anion Gap 13 5-14 MMOL/L Blood Urea Nitrogen 9 7-18 MG/DL Creatinine 0.75 0.60-1.30 MG/DL Estimat Glomerular Filtration Rate 96 BUN/Creatinine Ratio 12 Glucose Level 87 70-105 MG/DL Calcium Level 9.6 8.5-10.1 MG/DL Corrected Calcium 8.5-10.1 MG/DL Total Bilirubin 0.6 0.1-1.0 MG/DL Aspartate Amino Transf (AST/SGOT) 20 5-34 U/L Alanine Aminotransferase (ALT/SGPT) 27 0-55 U/L Alkaline Phosphatase 64 40-136 U/L Total Protein 8.1 6.4-8.2 GM/DL Albumin 4.9 H 3.2-4.5 GM/DL Human Chorionic Gonadotropin, Quant 410 H <5 MIU/ML My Orders Orders - MEET DAWN Urine Bedside (10/15/20 12:02) Ua Culture If Indicated (10/15/20 12:02) Cbc With Automated Diff (10/15/20 13:11) Hcg,Quantitative (10/15/20 13:11) Comprehensive Metabolic Panel (10/15/20 13:11) Us Ob<14 Wks Sngle W/Transvag (10/15/20 12:47) Tramadol Tablet (Ultram Tablet) (10/15/20 15:00) Tramadol Tablet (Ultram Tablet) (10/15/20 15:00) Medications Given in ED Current Medications Medications Dose Ordered Sig/Edward Route Start Time Stop Time Status Last Admin Dose Admin Tramadol HCl 50 mg ONCE ONCE PO 10/15/20 15:00 10/15/20 15:02 DC 10/15/20 15:02 50 MG Vital Signs/I&O 10/15/20 10/15/20 12:25 15:00 Temp 36.7 36.7 Pulse 81 81 Resp 18 18 B/P (MAP) 138/83 (101) 138/83 (101) Pulse Ox 100 100 O2 Delivery Room Air Capillary Refill : Less Than 3 Seconds Blood Pressure Mean: 101 Progress Note : Time: 12:00 Progress Note Patient seen and evaluated, urine hCG is positive. Will check UTI and obtain ultrasound. The patient is not sure of her blood type will obtain basic labs and await the ultrasound results. 1300 has not received US yet, will get labs. 1400 patient reporting continued pain, not worse, but not improvement. Will give Tramadol 50 mg PO 1450 patient reports some improvement in her symptoms. She has been taking ice chips with no nausea or vomiting. Reviewed US results, explained that they are truly inconclusive because of her early gestation. An ectopic has not been ruled out, completely. Her quant HCG is compatible with 4 weeks gestation. Stressed importance to follow up with Dr. Braun. Discharge instructions and return precautions reviewed in detail. All questions answered. Diagnostic Imaging Diagonstic Imaging: Ultrasound Comments NAME: GARRY AREVALO [facility] REC#: [id number] PT STATUS: REG ER : 1995 PHYSICIAN: MEET DAWN ADMIT DATE: 10/15/20/ER Draft Date of Exam:10/15/20 US OB<14 WKS SNGLE W/TRANSVAG EXAM: First Trimester Ultrasound INDICATIONS: Age by LMP 4-6 weeks. TECHNIQUE: The pelvis was scanned using transabdominal and endovaginal technique. COMPARISON: No prior ultrasound. FINDINGS: Endovaginal sonography demonstrates a normal appearance of the uterus and endometrium. The endometrium measures 0.9 cm. No visualized gestational sac is seen. Both ovaries were identified and appear normal. There appears to be a left corpus luteum cyst measuring 2.8 cm within the left ovary. The left measures 2.8 x 2.9 x 2.7 cm, and the right 2.4 x 1.6 x 1.5 cm. No abnormal adnexal masses. There is trace free fluid in the right adnexa. biometry: N/A IMPRESSION: 1. No intrauterine gestational sac is seen. Findings could represent early , failed , or nonvisualized ectopic . Recommend close follow-up with beta hCG and ultrasound as clinically indicated. 2. Likely 2.8 cm left corpus luteum cyst. Dictated on workstation # [id number] Dict: 10/15/20 1434 Trans: 10/15/20 1439 [facility] [id number] Interpreted by: NAIDA VASQUEZ DO Electronically signed by: Reviewed: Reviewed by Me Departure Impression Primary Impression: First trimester Additional Impressions: Nausea alone Abdominal pain Qualified Codes: R10.31 - Right lower quadrant pain Disposition: 01 HOME, SELF-CARE Condition: Improved Departure-Patient Inst. Decision time for Depature: 14:30 Referrals: [facility]/PEEWEE VILLEDA MD NO,LOCAL PHYSICIAN (PCP) Primary Care Physician Patient Instructions: Ectopic (DC), - The Second Month Add. Discharge Instructions: Begin taking a vitamin daily. You have appt with Dr. Braun (Dr. Larsen is off for the month), October 19 at 3:00 pm, [facility] Clinic. Monitor your pain, if it becomes worse or any vaginal bleeding, return to the Emergency Dept, your Ultrasound was inconclusive because of early , so ectopic is not ruled out. Increase water intake, activity as tolerated, vaginal rest until follow up, continue to avoid tobacco and marijuana. All discharge instructions reviewed with patient and/or family. Voiced understanding. MEET DAWN Oct 15, 2020 13:13
[2020-10-15 13:52] LABS: BASOPHILS # (AUTO) 0.1 10^3/uL (0.0-0.1); BASOPHILS % (AUTO) 0 % (0-10); EOSINOPHILS % (AUTO) 0 % (0-10); HEMATOCRIT 45 % (35-52); HEMOGLOBIN 15.5 g/dL (11.5-16.0); LYMPHOCYTES # (AUTO) 2.2 10^3/uL (1.0-4.0); LYMPHOCYTES % (AUTO) 19 % (12-44); MEAN CORPUSCULAR HEMOGLOBIN 32 pg (25-34); MEAN CORPUSCULAR HGB CONC 34 g/dL (32-36); MEAN CORPUSCULAR VOLUME 92 fL (80-99); MEAN PLATELET VOLUME 9.6 fL (9.0-12.2); MONOCYTES # (AUTO) 0.7 10^3/uL (0.0-1.0); MONOCYTES % (AUTO) 6 % (0-12); NEUTROPHILS # (AUTO) 8.7 10^3/uL (1.8-7.8); NEUTROPHILS % (AUTO) 75 % (42-75); PLATELET COUNT 303 10^3/uL (130-400); WHITE BLOOD COUNT 11.6 10^3/uL (4.3-11.0)
[2020-10-15 14:03] LABS: ALBUMIN 4.9 GM/DL (3.2-4.5)
[2020-10-15 14:04] LABS: CHLORIDE 106 MMOL/L (98-107); POTASSIUM 3.8 MMOL/L (3.6-5.0); SODIUM 139 MMOL/L (135-145)
[2020-10-15 14:05] LABS: CALCIUM 9.6 MG/DL (8.5-10.1)
[2020-10-15 14:06] LABS: GLUCOSE 87 MG/DL (70-105); TOTAL PROTEIN 8.1 GM/DL (6.4-8.2)
[2020-10-15 14:07] LABS: CARBON DIOXIDE 20 MMOL/L (21-32)
[2020-10-15 14:08] LABS: BILIRUBIN,TOTAL 0.6 MG/DL (0.1-1.0)
[2020-10-15 14:09] LABS: ALKALINE PHOSPHATASE 64 U/L (40-136)
[2020-10-15 14:10] LABS: CREATININE SERUM 0.75 MG/DL (0.60-1.30); GFR ESTIMATED 96
[2020-10-15 14:11] LABS: BUN/CREATININE RATIO 12
[2020-10-15 14:12] LABS: ALANINE AMINOTRANSFERASE 27 U/L (0-55)
--- NOTE | 2020-10-15 14:39 | Diagnostic Imaging Report ---
EXAM: First Trimester Ultrasound INDICATIONS: Age by LMP 4-6 weeks. TECHNIQUE: The pelvis was scanned using transabdominal and endovaginal technique. COMPARISON: No prior ultrasound. FINDINGS: Endovaginal sonography demonstrates a normal appearance of the uterus and endometrium. The endometrium measures 0.9 cm. No visualized gestational sac is seen. Both ovaries were identified and appear normal. There appears to be a left corpus luteum cyst measuring 2.8 cm within the left ovary. The left measures 2.8 x 2.9 x 2.7 cm, and the right 2.4 x 1.6 x 1.5 cm. No abnormal adnexal masses. There is trace free fluid in the right adnexa. biometry: N/A IMPRESSION: 1. No intrauterine gestational sac is seen. Findings could represent early , failed , or nonvisualized ectopic . Recommend close follow-up with beta hCG and ultrasound as clinically indicated. 2. Likely 2.8 cm left corpus luteum cyst. Dictated by: Dictated on workstation # [id number]
[2020-10-15 15:00] VITALS: BP 138/83
== END 2020-10-15 15:02 | disposition home or self-care (01) ==
LOC: EDUNIT# 11:52 → ER 11:54
DX: O26.891 Other specified pregnancy related conditions, first trimester (principal); R11.0 Nausea; R10.31 Right lower quadrant pain; F17.210 Nicotine dependence, cigarettes, uncomplicated; Z3A.00 Weeks of gestation of pregnancy not specified
CPT/HCPCS: 36415; 76801; 76817; 80053; 81000; 84702; 84703; 85025

== ENCOUNTER → 2021-02-02 | Outpatient (CLI) | payer MEDICAID ==
--- NOTE | 2021-02-02 14:44 | Diagnostic Imaging Report ---
INDICATION: survey. TECHNIQUE: Multiple Real-time grayscale images were obtained over the gravid uterus. COMPARISON: None. FINDINGS: There is a single live fetus in a cephalic presentation. The heart rate was recorded at 142 BPM. The placenta appears to be posterior and low lying. The amniotic fluid volume is normal. The survey demonstrates the kidneys, bladder, and stomach to be unremarkable. The brain is unremarkable. There is a three-vessel cord with normal insertion. The spine is unremarkable. The four-chamber heart view as well as outflow tract views are limited due to position. In addition, face anatomy is limited. Biometrical measurements are as follows: Biparietal 4.85 cm, age 20 weeks 5 days. Head circumference 17.77 cm, age 20 weeks 2 days. Abdominal circumference 14.62 cm, age 20 weeks 0 days. Femur length 3.26 cm, age 20 weeks 2 days. Sonographic estimate age: 20 weeks 3 days. Sonographic estimated date of delivery: 06/19/2021. Estimated Weight: 331 gm (+/- 48 gm). LMP percentile: 21%. heart rate: 142 beats per minute. number: 1 of 1. IMPRESSION: Single live IUP of 20 weeks 3 days gestational age. The estimated date of confinement sonographically is 06/19/2021. The survey is unremarkable although the four-chamber heart and outflow tract views are limited due to position. Dictated by: Dictated on workstation # [id number]
== END ==
LOC: RAD 10:15
PROVIDERS: ATTEND Obstetrics & Gynecology
DX: Z34.02 Encounter for supervision of normal first pregnancy, second trimester (principal); Z3A.20 20 weeks gestation of pregnancy
CPT/HCPCS: 76805

== ENCOUNTER 2021-02-06 09:03 | Outpatient (CLI) | payer MEDICAID ==
[~2021-02-06] VITALS: Ht 167.5 cm; Wt 79.2 kg
[2021-02-06 09:40] VITALS: BP 122/63
[2021-02-06 09:55] LABS: BILIRUBIN,URINE NEGATIVE (NEGATIVE); CLARITY,URINE CLEAR; COLOR,URINE YELLOW; GLUCOSE, URINE (UA) NEGATIVE (NEGATIVE); KETONES,URINE NEGATIVE (NEGATIVE); LEUKOCYTE ESTERASE ,URINE NEGATIVE (NEGATIVE); NITRITE,URINE NEGATIVE (NEGATIVE); PROTEIN,URINE NEGATIVE (NEGATIVE)
[2021-02-06 10:02] LABS: BACTERIA,URINE NEGATIVE /HPF; SQUAMOUS EPITHELIAL CELL,UR 0-2 /HPF
[2021-02-06] MEDS ORDERED: CYCLOBENZAPRINE 10 MG (FLEXERIL) TAB PO SCH (10:15)
--- NOTE | 2021-02-06 11:46 | Short Stay Summary ---
Discharge Summary Hospital Course Was the Problem List Reviewed?: Yes Final Diagnosis: Vaginal Bleeding Hospital Course Date of Admission: Admission Diagnosis : Family Physician/Provider: Stevie Dougherty Physician Date of Discharge: 02/06/21 Discharge Diagnosis: 02/06/2021 Hospital Course: Patient presented to L&D triage for post-coital vaginal bleeding and lower abdominal cramping. Evaluation including sterile speculum exam, wet prep, UA, rule out for ROM, and vaginitis panel were all unremarkable without abnormalities. Cervix is closed on exam and subjectively adequate amniotic fluid surrounding baby on bedside ultrasound. Posterior placenta without previa noted on bedside ultrasound. Findings were discussed with patient. Her abdominal cramping resolved with flexeril. She received Rhogam for Rh negative status. Instructions for pelvic rest discussed with patient at this time. Patient has OB follow-up appointment scheduled for 02/15/2021. OB triage return precautions discussed with patient Labs and Pending Lab Test: Laboratory Tests 02/06/21 09:30: Urine Color YELLOW, Urine Clarity CLEAR, Urine pH 7.0, Urine Specific [place] <=1.005, Urine Protein NEGATIVE, Urine Glucose (UA) NEGATIVE, Urine Ketones NEGATIVE, Urine Nitrite NEGATIVE, Urine Bilirubin NEGATIVE, Urine Urobilinogen 0.2, Urine Leukocyte Esterase NEGATIVE, Urine RBC (Auto) NEGATIVE, Urine RBC NONE, Urine WBC NONE, Urine Squamous Epithelial Cells 0-2, Urine Crystals NONE, Urine Bacteria NEGATIVE, Urine Casts NONE, Urine Mucus NEGATIVE, Urine Culture Indicated NO 02/06/21 10:45: Amniotic Fluid Ferning Test NEGATIVE Microbiology 02/06/21 Wet Prep - Final, Complete Home Meds Active Tramadol HCl 50 Mg Tablet 50 Mg PO Q8H PRN Assessment/Pt Instructions Instructions for pelvic rest discussed with patient at this time. Discharge Instructions Discharge Diet: No Restrictions Activity as Tolerated: Yes Discharge Physical Examination General Appearance: Alert, Oriented X3, Cooperative HEENT: Atraumatic, EOMI Cardiovascular: Regular Rate Abdominal: Soft, No Masses Skin: No Breakdown Neuro: Normal Gait, Normal Speech Allergies: Coded Allergies: morphine (Verified Allergy, Unknown, rash, 11/21/16) acetaminophen (Verified Adverse Reaction, Unknown, 09/10/18) made her liver enzyme go up when she was a child. amoxicillin (Verified Adverse Reaction, Unknown, n/v, 11/21/16) Discharge Summary Date of Admission Date of Discharge ERYN COSTA MD Feb 06, 2021 11:45
--- NOTE | 2021-02-06 11:52 | History & Physical-OB/GYN ---
History of Present Illness History of Present Illness Reason for visit/HPI CC: Vaginal bleeding/lower abdominal cramping S: Lizette Escalante is a 25 yo with IUP at 21w1d (based on LMP consistent with a 12 week US). She presents to OB triage for vaginal bleeding and lower abdominal cramping. Onset of bleeding was last night during intercourse. Bleeding was initially spotting, and slightly increased in amount to a light period. Bleeding is now scant and dark brown unlike the previous bright red. Abdominal cramping became worse like menstrual cramps this morning. States she has had about 3 previous episodes of bleeding with intercourse during this , but previous episodes resolve, but his episode has been more persistent. She also reports feeling release of fluid from vagina with activity over this weekend, and thinks likely urine loss. She notes good movements. Denies urinary symptoms. notes hx of recurrent UTIs as a child. She denies abnormal vaginal discharge. She denies recent illnesses, dysuria, fever, chills. Pt's care is with Dr. Copeland, and is otherwise complicated by hx of tobacco and MJ use. No known placental abnormalities Date of Admission 02/06/2021 Date Seen by a Provider: Feb 06, 2021 Time Seen by a Provider: 10:30 I consulted on this patient on 02/06/21 1030 Attending Physician Perri Somers MD Admitting Physician Perri Somers MD Consult Allergies and Home Medications Allergies Coded Allergies: morphine (Verified Allergy, Unknown, rash, 11/21/16) acetaminophen (Verified Adverse Reaction, Unknown, 09/10/18) made her liver enzyme go up when she was a child. amoxicillin (Verified Adverse Reaction, Unknown, n/v, 11/21/16) Patient Home Medication List Home Medication List Reviewed: Yes No Active Prescriptions or Reported Meds Past Jqyvies-Svsrdl-Qglwkp Hx Patient Social History Drug of Choice: marijuana about a week ago Smoking Status: Former Smoker 2nd Hand Smoke Exposure: Yes Recent Hopitalizations: No Alcohol Use?: No Substance type: Marijuana Immunizations Up To Date Tetanus Booster (TDap): Less than 5yrs Pediatric: No Seasonal Allergies Seasonal Allergies: No Surgeries Yes (DXLS) Bladder Surgery Respiratory Yes Asthma Currently Using CPAP: No Currently Using BIPAP: No Cardiovascular No Neurological No Reproductive System Expected Date of Delivery: Jun 18, 2021 Hx : 2 Hx Para: 0 Hx Total # of Abortions (Spona: 1 Hx Reproductive Disorders: Yes (CHRONIC PELVIC PAIN; DUB) Sexually Transmitted Disease: No HIV/AIDS: No Female Reproductive Disorders: Menstrual Problems, Endometriosis Genitourinary Yes UTI (peds) Gastrointestinal Yes ("LIVER ENZYMES GO UP PERIODICALLY") Gastroesophageal Reflux, Liver Disease/Jaundice Musculoskeletal No Endocrine History of Endocrine Disorders: No HEENT History of HEENT Disorders: No Cancer No Psychosocial History of Psychiatric Problem: Yes Behavioral Health Disorders: Eating Disorder, Anxiety, Depression Integumentary History of Skin or Integumenta: No Blood Transfusions History of Blood Disorders: No Family Medical History Significant Family History: COPD, Diabetes Family Hx: Diabetes mellitus 19 MOTHER Review of Systems Constitutional: no symptoms reported EENTM: no symptoms reported Respiratory: no symptoms reported Cardiovascular: no symptoms reported Gastrointestinal: abdominal pain (Lower abdominal cramping) Genitourinary: no symptoms reported : Yes Expected Date of Delivery: Jun 18, 2021 Musculoskeletal: no symptoms reported Skin: no symptoms reported Psychiatric/Neurological: No Symptoms Reported Physical Exam Physical Exam Vital Signs Vital Signs Date Time Temp Pulse Resp B/P (MAP) Pulse Ox O2 Delivery O2 Flow Rate FiO2 02/06/21 09:40 36.7 89 18 99 Room Air Capillary Refill : Less Than 3 Seconds Labs Laboratory Tests 02/06/21 09:30: Urine Color YELLOW, Urine Clarity CLEAR, Urine pH 7.0, Urine Specific [place] <=1.005, Urine Protein NEGATIVE, Urine Glucose (UA) NEGATIVE, Urine Ketones NEGATIVE, Urine Nitrite NEGATIVE, Urine Bilirubin NEGATIVE, Urine Urobilinogen 0.2, Urine Leukocyte Esterase NEGATIVE, Urine RBC (Auto) NEGATIVE, Urine RBC NONE, Urine WBC NONE, Urine Squamous Epithelial Cells 0-2, Urine Crystals NONE, Urine Bacteria NEGATIVE, Urine Casts NONE, Urine Mucus NEGATIVE, Urine Culture Indicated NO 02/06/21 10:45: Amniotic Fluid Ferning Test NEGATIVE Microbiology 02/06/21 Wet Prep - Final, Complete Radiology Studies Bedside Ultrasound performed: low lying appearance of posterior placenta, presentation is cephalic, subjectively normal fluid, movements noted General Appearance: No Apparent Distress Respiratory: No Respiratory Distress, Other (non-labored respirations, sym metric chest rise) Cardiovascular: Other (normal heart rate and peripheral perfusion) Abdominal: soft, other (mild right lower quadrant tenderness to palpation) Labia: WNL Vagina: WNL Cervix: WNL Cervix OS: closed Pelvic Exam: other (Normal appearing external genitalia, no lesions or condylomata. No abnormal vaginal discharge or pooling of fluid in the vagina. There is no blood noted in the vaginal vault. Scant blood tinged cervical mucous noted. No bleeding was noted from the cervix.) Extremity: Non Tender, No Pedal Edema Comments Fortine: occasional uterine irritability noted Assessment/Plan Assessment and Plan 23 yo who presents for vaginal bleeding and lower abdominal cramping 1) Vaginal bleeding/abdominal cramping: no bleeding noted on sterile speculum exam Cervix closed on digital exam Urinalysis and wet mount negative. Bedside Ultrasound: low lying placenta, subjectively normal fluid, movements noted R/o ROM: exam negative for pooling, Nitrazine, ferning Abdominal cramping resolved with flexeril administered in triage Rhogam ordered for administration given Rh negative status FHT: 150s on doppler Discussed pelvic rest pending OB follow-up and provider instructions. Reassurance provided 3) Dispo: d/c to home with continued outpatient follow-up as scheduled. Next appointment on 02/15/21. Triage return precautions discussed: S&S of labor, recurrent/persistent vaginal bleeding, and other concerns Admission Diagnosis Admission Status: Other (Outpt Proc) Diagnosis/Problems Diagnosis/Problems (1) Vaginal bleeding Status: Resolved Resolution Date/Time: 02/06/21 @ 13:53 (2) 21 weeks gestation of Status: Acute (3) Abdominal pain Status: Resolved Qualifiers: Qualified Codes: R10.30 - Lower abdominal pain, unspecified Resolution Date/Time: 02/06/21 @ 13:53 Clinical Quality Measures Admission Status Admission Dx Intrauterine at 21 weeks and 1 day Vaginal bleeding lower abdominal cramping Admission Status: Other (Outpt Proc) Copy Copies To 1: TANGELA COPELAND EBUNOLUWA O MD Feb 06, 2021 11:52
--- NOTE | 2021-02-06 14:12 | Short Stay Summary ---
Discharge Summary Hospital Course Problems/Dx: (1) Vaginal bleeding Status: Resolved (2) 21 weeks gestation of Status: Acute (3) Abdominal pain Status: Resolved Qualifiers: Qualified Codes: R10.30 - Lower abdominal pain, unspecified Final Diagnosis: Vaginal Bleeding Hospital Course Date of Admission: Admission Diagnosis : Family Physician/Provider: No,Local Physician Date of Discharge: 02/06/21 Discharge Diagnosis: intrauterine at 21w1d, Vaginal bleeding, lower abdominal cramping Hospital Course: Patient presented to L&D triage for post-coital vaginal bleeding and lower abdominal cramping. Evaluation including sterile speculum exam, wet prep, UA, rule out for ROM, and vaginitis panel were all unremarkable without ab normalities. Cervix is closed on exam and subjectively adequate amniotic fluid surrounding baby on bedside ultrasound. Posterior placenta without previa noted on bedside ultrasound. Findings were discussed with patient. Her abdominal cramping resolved with flexeril. She received Rhogam for Rh negative status. Instructions for pelvic rest discussed with patient at this time. Patient has OB follow-up appointment scheduled for 02/15/2021. OB triage return precautions discussed with patient Labs and Pending Lab Test: Laboratory Tests 02/06/21 09:30: Urine Color YELLOW, Urine Clarity CLEAR, Urine pH 7.0, Urine Specific [place] <=1.005, Urine Protein NEGATIVE, Urine Glucose (UA) NEGATIVE, Urine Ketones NEGATIVE, Urine Nitrite NEGATIVE, Urine Bilirubin NEGATIVE, Urine Urobilinogen 0.2, Urine Leukocyte Esterase NEGATIVE, Urine RBC (Auto) NEGATIVE, Urine RBC NONE, Urine WBC NONE, Urine Squamous Epithelial Cells 0-2, Urine Crystals NONE, Urine Bacteria NEGATIVE, Urine Casts NONE, Urine Mucus NEGATIVE, Urine Culture Indicated NO 02/06/21 10:45: Amniotic Fluid Ferning Test NEGATIVE Microbiology 02/06/21 Wet Prep - Final, Complete Home Meds Active No Active Prescriptions or Reported Medications Assessment/Pt Instructions Instructions for pelvic rest discussed with patient at this time. Discharge Instructions Discharge Diet: No Restrictions Activity as Tolerated: Yes Discharge Physical Examination Allergies: Coded Allergies: morphine (Verified Allergy, Unknown, rash, 11/21/16) acetaminophen (Verified Adverse Reaction, Unknown, 09/10/18) made her liver enzyme go up when she was a child. amoxicillin (Verified Adverse Reaction, Unknown, n/v, 11/21/16) Discharge Summary Date of Admission Date of Discharge Discharge Date: Feb 06, 2021 Discharge Time: 11:35 Admission Diagnosis Intrauterine at 21w1d Vaginal Bleeding Lower abdominal cramping Consults/Procedures Consulations None Discharge Diagnosis (1) Vaginal bleeding Status: Resolved (2) 21 weeks gestation of Status: Acute (3) Abdominal pain Status: Resolved Qualifiers: Qualified Codes: R10.30 - Lower abdominal pain, unspecified ERYN COSTA MD Feb 06, 2021 14:12
== END 2021-02-06 12:21 | disposition home or self-care (01) ==
LOC: WSo 09:03 → LDRP 09:04 → WSo 12:21
PROVIDERS: ATTEND Obstetrics & Gynecology
DX: O46.92 Antepartum hemorrhage, unspecified, second trimester (principal); Z3A.21 21 weeks gestation of pregnancy
CPT/HCPCS: 36415; 81000; 87210; 89060; 99214

== ENCOUNTER → 2021-02-07 | Outpatient (CLI) | payer MEDICAID ==
--- NOTE | 2021-02-07 15:52 | Diagnostic Imaging Report ---
INDICATION: Heavy vaginal bleeding. There is a single live fetus in a cephalic presentation. heart rate was recorded at 146 bpm. Placenta is posterior and to the left. Amniotic fluid index is normal. No previa is seen. Cervical length is 4.4 cm. No complicating features are seen. IMPRESSION: Limited ultrasound, without evidence of complicating features. Dictated by: Dictated on workstation # [id number]
== END ==
LOC: RAD 14:00
PROVIDERS: ATTEND Obstetrics & Gynecology
DX: O20.9 Hemorrhage in early pregnancy, unspecified (principal); Z3A.00 Weeks of gestation of pregnancy not specified
CPT/HCPCS: 76815

== ENCOUNTER → 2021-04-21 | Outpatient (CLI) | payer MEDICAID | LOC: LABNPT 10:05 | PROVIDERS: ATTEND Obstetrics & Gynecology | DX: O14.93 Unspecified pre-eclampsia, third trimester (principal) | CPT/HCPCS: 82570; 84156 ==

== ENCOUNTER → 2022-01-27 | Outpatient (CLI) | payer MEDICAID ==
--- NOTE | 2022-01-27 10:23 | Diagnostic Imaging Report ---
PROCEDURE: Pelvic comp/transvaginal sonogram. TECHNIQUE: Complete transabdominal and transvaginal pelvic ultrasound was performed. In addition, limited pelvic Doppler was performed. INDICATION: Abdominal pain. Uterus is anteverted measuring 7.9 x 4.0 x 5.1 cm. Endometrium is 6 mm in thickness. There is an IUD centered within the endometrial canal. No myometrial mass is detected. The right ovary measures 2.9 x 2.0 x 2.7 cm and the left ovary measures 2.2 x 1.6 x 1.7 cm. Both ovaries show blood flow. No adnexal mass or free fluid is detected. IMPRESSION: Unremarkable transabdominal and transvaginal pelvic ultrasound with limited pelvic Doppler. Dictated by: Dictated on workstation # [id number]
== END ==
LOC: RAD 09:23
PROVIDERS: ATTEND Nurse Practitioner Women's Health
DX: R10.9 Unspecified abdominal pain (principal)
CPT/HCPCS: 76830; 76856

== ENCOUNTER → 2022-04-13 | Outpatient (CLI) | payer MEDICAID ==
--- NOTE | 2022-04-13 13:08 | Diagnostic Imaging Report ---
PROCEDURE: Pelvic comp/transvaginal sonogram. TECHNIQUE: Complete transabdominal and transvaginal pelvic ultrasound was performed. In addition, limited pelvic Doppler was performed. INDICATION: Dyspareunia. Uterus is anteverted measuring 6.4 x 4.8 x 3.6 cm. Endometrium is 3 mm in thickness. No myometrial mass is identified. Right ovary measures 3.0 x 2.1 x 1.0 cm and the left ovary measures 2.8 x 1.5 x 1.5 cm. Both ovaries contain small follicles. There is normal blood flow to both ovaries. No adnexal mass or free pelvic fluid is identified. IMPRESSION: Unremarkable transabdominal and transvaginal pelvic ultrasound with limited pelvic Doppler. Dictated by: Dictated on workstation # [id number]
== END ==
LOC: RAD 11:37
PROVIDERS: ATTEND Obstetrics & Gynecology
DX: N94.12 Deep dyspareunia (principal)
CPT/HCPCS: 76830; 76856

== ENCOUNTER 2022-04-18 08:37 | Emergency (ER) | payer MEDICAID ==
[~2022-04-18] VITALS: Ht 167.7 cm; Wt 76.2 kg
[2022-04-18] MEDS ORDERED: NS IV 1000 ML 1,000 ML IV STA (10:10)
[2022-04-18] MEDS ORDERED: fentaNYL INJ 100 MCG/2 ML AMP IVP STA (10:10)
[2022-04-18] MEDS ORDERED: ONDANSETRON 4 MG/2 ML (SDV) Z0FRAN IVP ONE (10:15)
--- NOTE | 2022-04-18 10:36 | ED Abdominal Pain ---
General Chief Complaint: Abdominal/GI Problems Stated Complaint: ABD PAIN | VOMITING | DIARRHEA | BACK PAIN Nursing Triage Note: PT AMB TO [facility] 7 WITH COMPLAINT OF ABD PAIN, DIARRHEA, NAUSEA. STATES WAS SENT BY [facility] FOR FURTHER WORK UP OF GALLBLADDER. HAD ULTRASOUNDED SCHEDULED AT [facility], BUT COULD NOT WAIT. Source of Information: Patient Exam Limitations: No Limitations History of Present Illness Date Seen by Provider: Apr 18, 2022 Time Seen by Provider: 10:02 Initial Comments Here with 3 days of nausea, vomiting and diarrhea. Went to [facility] and they did evaluation and thought that she may have gallbladder problems and sent her here for further evaluation for that. She also follows with Dr. Chan and has upper endoscopy scheduled early next month for abdominal pain problems. She states that she has chronic right lower quadrant abdominal pain that they have not been able to figure out as well. She has never been told that she has had gallstones before. Denies fever or chills. Denies blood in her vomit. She has not really tried much for pain. She does take famotidine for stomach upset and states that she has been taking that. Timing/Duration: 3-4 Days Severity/Quality: Moderate, Aching Location: Epigastric Radiation: RUQ Activities at Onset: None Modifying Factors: Worsens With Eating Associated Symptoms: No Back Pain, No Chest Pain, No Fever/Chills; Nausea/Vomiting; No Shortness of Air; Weakness Allergies and Home Medications Allergies Coded Allergies: morphine (Verified Allergy, Unknown, rash, 11/21/16) acetaminophen (Verified Adverse Reaction, Unknown, 09/10/18) made her liver enzyme go up when she was a child. amoxicillin (Verified Adverse Reaction, Unknown, n/v, 11/21/16) Patient Home Medication List Home Medication List Reviewed: Yes (Records review reveals patient is not on famotidine but on pantoprazole. ) Ondansetron (Ondansetron Odt) 4 Mg Tab.rapdis, 4 MG PO Q6H PRN for NAUSEA/VOMITING Prescribed by: BRITTANY CUEVAS on 04/18/22 1140 Review of Systems Review of Systems Constitutional: No chills, No fever EENTM: No Nose Congestion, No Throat Pain Respiratory: Denies Cough, Denies Shortness of Air Cardiovascular: No Symptoms Reported Gastrointestinal: Abdominal Pain, Diarrhea, Nausea, Vomiting Genitourinary: No Symptoms Reported Musculoskeletal: no symptoms reported Past Vbutmgz-Bvsksj-Kuliht Hx Patient Social History Tobacco Use?: No Use of E-Cig and/or Vaping dev: No Substance use?: Yes Substance type: Marijuana Alcohol Use?: No Pt feels they are or have been: No Immunizations Up To Date Tetanus Booster (TDap): Less than 5yrs PED Vaccines UTD: No Seasonal Allergies Seasonal Allergies: No Past Medical History Surgeries: Yes (DXLS) Bladder Surgery Respiratory: Yes Currently Using CPAP: No Currently Using BIPAP: No Cardiac: No Neurological: No Reproductive Disorders: Yes (CHRONIC PELVIC PAIN; DUB) Female Reproductive Disorders: Menstrual Problems, Endometriosis Sexually Transmitted Disease: No HIV/AIDS: No Genitourinary: Yes UTI (peds) Gastrointestinal: Yes ("LIVER ENZYMES GO UP PERIODICALLY") Gastroesophageal Reflux, Liver Disease/Jaundice Musculoskeletal: No Endocrine: No HEENT: No Cancer: No Psychosocial: Yes Eating Disorder, Anxiety, Depression Integumentary: No Blood Disorders: No Family Medical History Reviewed Nursing Family Hx Diabetes mellitus 19 MOTHER COPD, Diabetes Physical Exam Vital Signs Vital Signs - First Documented 04/18/22 08:49 Temp 36.1 Pulse 87 Resp 16 B/P (MAP) 109/82 (91) Pulse Ox 97 O2 Delivery Room Air Capillary Refill : Less Than 3 Seconds Height/Weight/BMI Height: 5'6.00" Weight: 135lbs. 0.0oz. 61.039069rx; 27.00 BMI Method:Stated General Appearance: WD/WN, mild distress HEENT: PERRL/EOMI, pharynx normal Neck: full range of motion, supple Respiratory: lungs clear, normal breath sounds Cardiovascular: regular rate, rhythm, no murmur Gastrointestinal: normal bowel sounds, soft; No guarding, No rebound; tenderness (Epigastric) Extremities: non-tender, normal inspection Back: normal inspection, no CVA tenderness, no vertebral tenderness Neurologic/Psychiatric: alert, oriented x 3 Skin: normal color, warm/dry Progress/Results/Core Measures Results/Orders Lab Results Laboratory Tests Test 04/18/22 10:25 Range/Units White Blood Count 11.3 H 4.3-11.0 10^3/uL Red Blood Count 4.50 3.80-5.11 10^6/uL Hemoglobin 13.6 11.5-16.0 g/dL Hematocrit 40 35-52 % Mean Corpuscular Volume 89 80-99 fL Mean Corpuscular Hemoglobin 30 25-34 pg Mean Corpuscular Hemoglobin Concent 34 32-36 g/dL Red Cell Distribution Width 12.0 10.0-14.5 % Platelet Count 284 130-400 10^3/uL Mean Platelet Volume 10.0 9.0-12.2 fL Immature Granulocyte % (Auto) 0 % Neutrophils (%) (Auto) 92 H 42-75 % Lymphocytes (%) (Auto) 5 L 12-44 % Monocytes (%) (Auto) 2 0-12 % Eosinophils (%) (Auto) 0 0-10 % Basophils (%) (Auto) 0 0-10 % Neutrophils # (Auto) 10.4 H 1.8-7.8 10^3/uL Lymphocytes # (Auto) 0.6 L 1.0-4.0 10^3/uL Monocytes # (Auto) 0.3 0.0-1.0 10^3/uL Eosinophils # (Auto) 0.0 0.0-0.3 10^3/uL Basophils # (Auto) 0.0 0.0-0.1 10^3/uL Immature Granulocyte # (Auto) 0.0 0.0-0.1 10^3/uL Neutrophils % (Manual) 93 % Lymphocytes % (Manual) 6 % Monocytes % (Manual) 1 % Eosinophils % (Manual) 0 % Basophils % (Manual) 0 % Band Neutrophils 0 % Blood Morphology Comment NORMAL Sodium Level 137 135-145 MMOL/L Potassium Level 3.9 3.6-5.0 MMOL/L Chloride Level 108 H 98-107 MMOL/L Carbon Dioxide Level 18 L 21-32 MMOL/L Anion Gap 11 5-14 MMOL/L Blood Urea Nitrogen 8 7-18 MG/DL Creatinine 0.77 0.60-1.30 MG/DL Estimat Glomerular Filtration Rate 110 BUN/Creatinine Ratio 10 Glucose Level 104 70-105 MG/DL Calcium Level 9.3 8.5-10.1 MG/DL Corrected Calcium 9.2 8.5-10.1 MG/DL Magnesium Level 1.8 1.6-2.4 MG/DL Total Bilirubin 0.4 0.1-1.0 MG/DL Aspartate Amino Transf (AST/SGOT) 18 5-34 U/L Alanine Aminotransferase (ALT/SGPT) 25 0-55 U/L Alkaline Phosphatase 73 40-136 U/L C-Reactive Protein High Sensitivity 0.62 H 0.00-0.50 MG/DL Total Protein 6.9 6.4-8.2 GM/DL Albumin 4.1 3.2-4.5 GM/DL Lipase 9 8-78 U/L Serum Test, Qualitative NEGATIVE NEGATIVE My Orders Orders - BRITTANY CUEVAS MD Cbc With Automated Diff (04/18/22 10:10) Comprehensive Metabolic Panel (04/18/22 10:10) Hs C Reactive Protein (04/18/22 10:10) Lipase (04/18/22 10:10) Magnesium (04/18/22 10:10) Us Gallbladder [address] (04/18/22 10:10) Ondansetron Injection (Zofran Injectio (04/18/22 10:15) Ns Iv 1000 Ml (Sodium Chloride 0.9%) (04/18/22 10:10) Ed Iv/Invasive Line Start (04/18/22 10:10) Fentanyl Inj (Sublimaze Injection) (04/18/22 10:10) Manual Differential (04/18/22 10:25) Hcg,Qualitative Serum (04/18/22 11:35) Medications Given in ED Current Medications Medications Dose Ordered Sig/Edward Route Start Time Stop Time Status Last Admin Dose Admin Ondansetron HCl 4 mg ONCE ONCE IVP 04/18/22 10:15 04/18/22 10:16 DC 04/18/22 10:28 4 MG Vital Signs/I&O 04/18/22 08:49 Temp 36.1 Pulse 87 Resp 16 B/P (MAP) 109/82 (91) Pulse Ox 97 O2 Delivery Room Air Blood Pressure Mean: 91 Progress Progress Note : Progress Note Seen and evaluated. IV, labs including CBC, CMP, CRP and lipase ordered. Gallbladder ultrasound ordered. Normal saline 1 L bolus and fentanyl 50 mcg IV ordered. Zofran 4 mg IV ordered. Monitor patient. Differential includes cholecystitis, choledocholithiasis, cholelithiasis, epigastric abdominal pain, viral illness, electrolyte abnormality, dehydration 1045: Ultrasound complete and shows no acute gallbladder disease per preliminary read from tachycardia as discussed with tech on findings. No bile duct thickening, no sludge, no stones and no gallbladder wall thickening noted on preliminary scan. Monitor patient. 1035: Patient is feeling much better. Fluids are nearly complete. I did discuss with her about follow-up and the importance of upper endoscopy. She repeats that she is following up with Dr. Chan and has that scheduled for early April. She will need outpatient prescription for nausea medicine which was ordered. I have added hCG qualitative serum test. Patient states that she is not a few weeks ago and is on control but we will go ahead and get that off the list. Anticipate discharge home as fluids are complete. 1209: hCG negative. Fluids complete. Discharged home with return precautions. Patient verbalized understanding instructions and agreement with plan. Departure Impression Primary Impression: Epigastric abdominal pain Additional Impression: Nausea vomiting and diarrhea Disposition: HOME, SELF-CARE Condition: Stable Departure-Patient Inst. Decision time for Depature: 12:09 Referrals: MEG HUSSEIN DO (PCP/Family) Primary Care Physician Patient Instructions: Severe Abdominal Pain, Adult (DC), Diarrhea, Adult ED, Nausea and Vomiting, Adult (DC) Add. Discharge Instructions: All discharge instructions reviewed with patient and/or family. Voiced understanding. Drink plenty of fluids by taking small sips frequently. Along with your prescribed pantoprazole, you may also take fnsd-fia-musamif Pepcid/famotidine, 20 mg once or twice daily as needed for stomach upset. Take other medications as directed. Keep appointment with Dr. Chan for upper endoscopy (scope) as scheduled. Return for worse pain, fever, vomiting, weakness, breathing problems or other concerns as needed. Clear a light diet for the next 24 hours and then advance as tolerated. Get plenty of rest. You may take vcea-okr-syyffem Tylen ol/acetaminophen 1000 mg every 6-8 hours as needed for pain. Scripts Ondansetron (Ondansetron Odt) 4 Mg Tab.rapdis 4 MG PO Q6H PRN for NAUSEA/VOMITING, #12 TAB 0 Refills Prov: BRITTANY CUEVAS MD 04/18/22 BRITTANY CUEVAS MD Apr 18, 2022 10:36
[2022-04-18 10:38] LABS: BASOPHILS % (AUTO) 0 % (0-10); EOSINOPHILS % (AUTO) 0 % (0-10); HEMATOCRIT 40 % (35-52); HEMOGLOBIN 13.6 g/dL (11.5-16.0); LYMPHOCYTES # (AUTO) 0.6 10^3/uL (1.0-4.0); LYMPHOCYTES % (AUTO) 5 % (12-44); MEAN CORPUSCULAR HEMOGLOBIN 30 pg (25-34); MEAN CORPUSCULAR HGB CONC 34 g/dL (32-36); MEAN CORPUSCULAR VOLUME 89 fL (80-99); MONOCYTES # (AUTO) 0.3 10^3/uL (0.0-1.0); MONOCYTES % (AUTO) 2 % (0-12); NEUTROPHILS # (AUTO) 10.4 10^3/uL (1.8-7.8); NEUTROPHILS % (AUTO) 92 % (42-75); PLATELET COUNT 284 10^3/uL (130-400); WHITE BLOOD COUNT 11.3 10^3/uL (4.3-11.0)
[2022-04-18 10:51] LABS: ALBUMIN 4.1 GM/DL (3.2-4.5); POTASSIUM 3.9 MMOL/L (3.6-5.0)
[2022-04-18 10:52] LABS: CALCIUM 9.3 MG/DL (8.5-10.1)
[2022-04-18 10:54] LABS: TOTAL PROTEIN 6.9 GM/DL (6.4-8.2)
[2022-04-18 10:55] LABS: BILIRUBIN,TOTAL 0.4 MG/DL (0.1-1.0)
[2022-04-18 10:57] LABS: CREATININE SERUM 0.77 MG/DL (0.60-1.30)
[2022-04-18 10:58] LABS: BAND NEUTROPHILS 0 %; BASOPHILS % (MANUAL) 0 %; EOSINOPHILS % (MANUAL) 0 %; LYMPHOCYTES % (MANUAL) 6 %; MONOCYTES % (MANUAL) 1 %; NEUTROPHILS % (MANUAL) 93 %; RBC MORPH NORMAL
[2022-04-18 11:00] LABS: MAGNESIUM 1.8 MG/DL (1.6-2.4)
--- NOTE | 2022-04-18 11:23 | Diagnostic Imaging Report ---
INDICATION: Epigastric pain. TECHNIQUE: Gallbladder sonography was performed in the routine fashion. COMPARISON: There is no prior study for comparison. FINDINGS: The liver shows normal echogenicity without focal lesion. The gallbladder is unremarkable with no stones or wall thickening. The portal vein is patent with hepatopetal flow. The common duct measures 4 mm. The pancreas is obscured by overlying gas. The visualized portions of the aorta and IVC are normal. The right kidney appears unremarkable with no hydronephrosis. There is no ascites. IMPRESSION: Unremarkable right upper quadrant ultrasound. Dictated by: Dictated on workstation # [id number]
[2022-04-18] MEDS ORDERED: ONDA4TAB11 PO (11:40)
[2022-04-18 12:31] VITALS: BP 109/74
[2022-04-19] MEDS ORDERED: GLYC2TAB3 PO (10:00)
[2022-04-19] MEDS ORDERED: PANT40TA2 PO (10:00)
[2022-04-19] MEDS ORDERED: LEVO1TAB9 PO (10:00)
== END 2022-04-18 12:31 | disposition home or self-care (01) ==
LOC: EDUNIT# 08:37 → ER 08:39
DX: R10.13 Epigastric pain (principal); R19.7 Diarrhea, unspecified; R11.2 Nausea with vomiting, unspecified; Z32.02 Encounter for pregnancy test, result negative; Z87.19 Personal history of other diseases of the digestive system; Z88.5 Allergy status to narcotic agent
CPT/HCPCS: 36415; 76705; 80053; 83690; 83735; 84703; 85007; 85027; 86141

== ENCOUNTER → 2022-04-19 | Outpatient (CLI) | payer MEDICAID ==
[~2022-04-19] VITALS: Ht 167.6 cm; Wt 78.0 kg
[~2022-04-19] MED LIST changes: +GLYC2TAB3 PO; +LEVO1TAB9 PO; +ONDA4TAB11 PO; +PANT40TA2 PO
== END | disposition home or self-care (01) ==
LOC: PREOP 06:38
PROVIDERS: ATTEND Surgery
DX: Z01.818 Encounter for other preprocedural examination (principal)

== ENCOUNTER 2022-05-02 12:01 | Day surgery (SDC) | payer MEDICAID ==
[~2022-05-02] VITALS: Ht 167.6 cm; Wt 78.0 kg
[2022-05-02] MEDS ORDERED: LACTATED RINGERS 1,000 ML IV STA (12:35)
[2022-05-02] MEDS ORDERED: HURRICAINE EXT TUBE (BENZOCAINE) XX PRN (12:45)
[2022-05-02 12:50] VITALS: BP 132/95
--- NOTE | 2022-05-02 13:38 | Progress Note-Pre Operative ---
Pre-Operative Progress Note Date of Available H&P: Apr 12, 2022 Date H&P Reviewed: May 02, 2022 Time H&P Reviewed: 13:38 History & Physical: H&P Reviewed, Patient Examed, No changes noted Pre-Operative Diagnosis: fissure, melena MARIBELL RUSSELL DO May 02, 2022 13:38
[2022-05-02] MEDS ORDERED: PROPOFOL INJECTION 50 ML IV ONE ×2 (14:14→14:28)
[2022-05-02] MEDS ORDERED: MIDAZOLAM 2 MG/2 ML (VERSED) VIAL ONE (14:14)
[2022-05-02 14:40] VITALS: BP 115/75
[2022-05-02 14:45] VITALS: BP 111/72
--- NOTE | 2022-05-02 14:49 | Anesthesia-General Post-Op ---
MAC Patient Condition Mental Status/LOC: Same as Preop Cardiovascular: Satisfactory Nausea/Vomiting: Absent Respiratory: Satisfactory Pain: Controlled Complications: Absent Post Op Complications Complications None Follow Up Care/Instructions Patient Instructions None needed. Anesthesiology Discharge Order Discharge Order Patient is doing well, no complaints, stable vital signs, no apparent adverse anesthesia problems. No complications reported per nursing. HARPREET PATE CRNA May 02, 2022 14:49
[2022-05-02 14:50] VITALS: BP 117/78
[2022-05-02] MEDS ORDERED: SUCR1TAB36 PO (14:52)
--- NOTE | 2022-05-02 14:52 | Discharge Inst-Simple/Standard ---
Discharge Inst-Standard Discharge Medications New, Converted or Re-Newed RX: Transmitted to Pharmacy Patient Instructions/Follow Up Plan of Care/Instructions/FU: 2wks vignesh Activity as Tolerated: Yes Discharge Diet: No Restrictions MARIBELL RUSSELL DO May 02, 2022 14:52
[2022-05-02 15:20] VITALS: BP 117/78
--- NOTE | 2022-05-02 22:44 | OPERATIVE REPORT ---
DATE OF SERVICE: 05/02/2022 PREOPERATIVE DIAGNOSES: GERD and melena. POSTOPERATIVE DIAGNOSES: Small hiatal hernia, duodenitis, mucosal change of the colon. PROCEDURES: EGD with biopsies, colonoscopy with cold biopsy descending colon. SURGEON: Maribell Chan DO FLUIDS: Per MUSIC MANAGER. ESTIMATED BLOOD LOSS: None. COMPLICATIONS: None. INDICATIONS: The patient is a 27-year-old female with GERD symptoms and melena. She understood risks and benefits of procedure and wished to proceed. Consent was signed in chart. DESCRIPTION OF PROCEDURE: The patient was taken to endoscopy suite, placed in left lateral semi-recumbent position. A timeout was performed. The scope was inserted in the mouth, down the esophagus, stomach and into the duodenum without difficulty. Second portion of duodenum had normal appearance. First portion of the duodenum had erythematous changes. A biopsy of the duodenum was obtained. Scope was then slowly retracted back into the stomach where further insufflated. No polyps, masses, ulcerations. Biopsy of the antrum was obtained. The scope was retroflexed, showing a small hiatal hernia, noting no other pathology. Scope was returned to its normal position. Slowly withdrawn until completely removed. Until completely removed into the distal esophagus, biopsy of the GE junction was obtained. No polyps, masses or ulcerations. Scope was slowly retracted back until completely removed, noting no other pathology. Digital rectal exam was performed. No palpable polyps, masses or ulcerations. Scope was turned to the rectum and advanced all the way to the cecum with minimal difficulty. The ileocecal valve was intubated. No abnormalities noted. Scope was retracted back into the stomach. Prep was adequate. No polyps, mass or ulceration in the cecum, ascending, transverse, descending colon and sigmoid colon. In the descending colon, some very scant erythematous changes, mucosal changes present, likely from prep; however, cold biopsy of this area was obtained. Scope was then slowly retracted back. No polyps, masses or ulcerations in the sigmoid colon, rectum. Scope was retroflexed, noting no other pathology. Scope was returned to its normal position, slowly withdrawn until completely removed. The patient tolerated the procedure well without complications. She was taken to recovery room in stable condition. RECOMMENDATIONS: The patient will need a repeat colonoscopy at age 47 per screening guidelines. Any issues before that, be seen at that time. She will follow up in 2 weeks to discuss pathology. We will add Carafate 1 gram 4 times a day. Job ID: [id number] DocumentID: [id number] Dictated Date: 05/02/2022 14:56:55 Ladle Repairman Date: 05/02/2022 22:42:00 Dictated By: MARIBELL CHAN DO
== END 2022-05-02 15:22 | disposition home or self-care (01) ==
LOC: ENDO 12:01
PROVIDERS: ATTEND Surgery
DX: K44.9 Diaphragmatic hernia without obstruction or gangrene (principal); K29.81 Duodenitis with bleeding; K21.00 Gastro-esophageal reflux disease with esophagitis, without bleeding; K63.89 Other specified diseases of intestine; F17.210 Nicotine dependence, cigarettes, uncomplicated; F17.290 Nicotine dependence, other tobacco product, uncomplicated; Z28.310 Unvaccinated for COVID-19; Z79.899 Other long term (current) drug therapy
CPT/HCPCS: 84703

== ENCOUNTER → 2022-06-15 | Outpatient (CLI) | payer MEDICAID ==
[~2022-06-15] MED LIST changes: +SUCR1TAB36 PO
--- NOTE | 2022-06-15 10:00 | Diagnostic Imaging Report ---
PROCEDURE: US Gallbladder. TECHNIQUE: Multiple real-time grayscale images were obtained over the right upper quadrant in various projections. INDICATION: Epigastric pain. Liver is normal in size at approximately 15 cm. Portal vein is patent and shows normal direction of flow. No liver mass is detected. Gallbladder is without stones or sludge. There is no wall thickening. No biliary ductal dilatation is seen. Extra\hepatic bile duct is 3 mm in diameter. Visualized pancreas is unremarkable. Aorta is nonaneurysmal. IVC is patent. Right kidney is without calculi or hydronephrosis. There is no ascites. IMPRESSION: Continued unremarkable right upper quadrant ultrasound, stable since prior study from 04/18/2022. There is no evidence of cholelithiasis or acute cholecystitis. Dictated by: Dictated on workstation # [id number]
== END ==
LOC: RAD 09:02
PROVIDERS: ATTEND Surgery
DX: R10.13 Epigastric pain (principal)
CPT/HCPCS: 76705

== ENCOUNTER → 2022-06-29 | Outpatient (CLI) | payer MEDICAID ==
[~2022-06-29] MED LIST changes: +CATHETER FLUSH 10 ML SYR IVP PRN
--- NOTE | 2022-06-29 12:15 | Diagnostic Imaging Report ---
INDICATION: Epigastric pain EXAMINATION: Hepatobiliary scan 06/29/2022 FINDINGS: After uneventful administration of 5.43 mCi of technetium 99m Choletec intravenously subsequent imaging was performed with prompt homogeneous uptake noted throughout the liver. The gallbladder and small bowel seen within less than 60 minutes. Subsequent administration of 8 ounces of ensure administered orally with continued imaging performed. Ejection fraction is calculated at 69%. IMPRESSION: 1. No obstructive process. 2. Normal ejection fraction. Dictated by: Dictated on workstation # [id number]
== END ==
LOC: CARD 09:18
PROVIDERS: ATTEND Surgery
DX: R10.13 Epigastric pain (principal)
CPT/HCPCS: 78227

== ENCOUNTER 2023-01-04 17:59 | Emergency (ER) | payer MEDICAID ==
[~2023-01-04] VITALS: Ht 165 cm; Wt 72.2 kg
[~2023-01-04 17:59] MED LIST changes: -CATHETER FLUSH 10 ML SYR IVP PRN
[2023-01-04 18:13] VITALS: BP 135/75
--- NOTE | 2023-01-04 18:22 | ED GU-Female ---
General Chief Complaint: - Reproductive Stated Complaint: 6-8 WKS VAG BLEEDING Source: patient Exam Limitations: no limitations (JAIMIE BLACKMAN APRN) History of Present Illness Date Seen by Provider: Jan 04, 2023 Time Seen by Provider: 18:11 Initial Comments 27-year-old female presents to the ER with reports of vaginal bleeding approximately 1 hour prior to arrival. She states that 45 minutes prior to this, she was roughhousing with her son, and he landed on her stomach. She states that she went to the bathroom, there was blood clots in the toilet, and the toilet paper was full of blood. She is complaining of lower abdominal pain, states it is worse on the right side. She denies fevers, dysuria, abnormal vaginal discharge. Does report nausea and vomiting. She reports complicated previous , states she had preeclampsia, reports that at 22 weeks gestation she almost went into labor, states she had to receive injections to prevent labor. Her son was born 2 months prematurely. He also had a small umbilical cord. She has not yet seen her OB Dr. Barrios for this . She is scheduled for an ultrasound on 01/15/2023. (JAIMIE BLACKMAN APRN) Allergies and Home Medications Allergies Coded Allergies: morphine (Verified Allergy, Unknown, rash, 11/21/16) acetaminophen (Verified Adverse Reaction, Unknown, 09/10/18) made her liver enzyme go up when she was a child. amoxicillin (Verified Adverse Reaction, Unknown, n/v, 11/21/16) Patient Home Medication List Home Medication List Reviewed: Yes (JAIMIE BLACKMAN APRN) Cephalexin (Cephalexin) 500 Mg Tablet, 500 MG PO QID Prescribed by: Jaimie Das on 01/04/232143 Glycopyrrolate (Glycopyrrolate) 2 Mg Tablet, 2 MG PO DAILY, (Reported) Entered as Reported by: HENRY CHICAS on 04/19/22 1000 Levonorgestrel-Ethin Estradiol (Aviane-28 Tablet) 0.1 Mg-20 Mcg Tablet, 1 EACH PO DAILY, (Reported) Entered as Reported by: HENRY CHICAS on 04/19/22 1000 Pantoprazole Sodium (Protonix) 40 Mg Tablet.dr, 40 MG PO DAILY, (Reported) Entered as Reported by: HENRY CHICAS on 04/19/22 1000 Sucralfate (Carafate) 1 Gram Tablet, 1 GM PO QID Prescribed by: MARIBELL RUSSELL on 05/02/22 6329 Review of Systems Review of Systems Constitutional: see HPI (JAIMIE BLACKMAN APRN) Past Kqfhmyx-Cbyzve-Akxfyz Hx Immunizations Up To Date Tetanus Booster (TDap): Unknown PED Vaccines UTD: No (JAIMIE BLACKMAN APRN) Seasonal Allergies Seasonal Allergies: No (JAIMIE BLACKMAN APRN) Past Medical History Surgeries: Yes (DXLS) Bladder Surgery Respiratory: Yes Currently Using CPAP: No Currently Using BIPAP: No Cardiac: No Neurological: No Reproductive Disorders: Yes (CHRONIC PELVIC PAIN; DUB) Female Reproductive Disorders: Menstrual Problems, Endometriosis Sexually Transmitted Disease: No HIV/AIDS: No Genitourinary: Yes UTI (peds) Gastrointestinal: Yes ("LIVER ENZYMES GO UP PERIODICALLY") Gastroesophageal Reflux, Liver Disease/Jaundice Musculoskeletal: No Endocrine: No HEENT: No Cancer: No Psychosocial: Yes Eating Disorder, Anxiety, Depression Integumentary: No Blood Disorders: No (JAIMIE BLACKMAN APRN) Family Medical History Diabetes mellitus 19 MOTHER COPD, Diabetes (JIAMIE BLACKMAN APRN) Physical Exam Vital Signs Vital Signs - First Documented 01/04/23 18:13 Temp 37.2 Pulse 84 Resp 20 B/P (MAP) 135/75 (95) Pulse Ox 99 O2 Delivery Room Air (JAKE,RODRICK K DO) Vital Signs Capillary Refill : (JAIMIE BLACKMAN APRN) Height, Weight, BMI Height: 5'6.00" Weight: 135lbs. 0.0oz. 61.239498sr; 27.76 BMI Method:Stated General Appearance: WD/WN, no apparent distress Neck: supple, normal inspection Cardiovascular: regular rate, rhythm Respiratory: lungs clear, normal breath sounds, no respiratory distress, no accessory muscle use Gastrointestinal: soft, tenderness (Right lower quadrant) Pelvic: normal external exam, no cerv. motion tender, no masses, discharge (Brown-colored discharge); No vaginal bleeding; other (Os appears closed, cervix mildly irritated) Extremities: normal range of motion, normal inspection Neurologic/Psychiatric: alert, normal mood/affect Skin: normal color, warm/dry (JAIMIE BLACKMAN MIS SPECIALIST) Progress/Results/Core Measures Suspected Sepsis SIRS Temperature: Pulse: Respiratory Rate: Laboratory Tests 01/04/23 18:20: White Blood Count 12.6H Blood Pressure / Mean: Laboratory Tests 01/04/23 18:20: Platelet Count 307 (JAIMIE BLACKMAN MIS SPECIALIST) Results/Orders Lab Results Laboratory Tests Test 01/04/23 18:20 01/04/23 18:27 01/04/23 19:50 Range/Units White Blood Count 12.6 H 4.3-11.0 10^3/uL Red Blood Count 4.29 3.80-5.11 10^6/uL Hemoglobin 13.3 11.5-16.0 g/dL Hematocrit 38 35-52 % Mean Corpuscular Volume 90 80-99 fL Mean Corpuscular Hemoglobin 31 25-34 pg Mean Corpuscular Hemoglobin Concent 35 32-36 g/dL Red Cell Distribution Width 11.9 10.0-14.5 % Platelet Count 307 130-400 10^3/uL Mean Platelet Volume 9.4 9.0-12.2 fL Human Chorionic Gonadotropin, Quant 73816 H <5 MIU/ML Urine Color YELLOW Urine Clarity CLEAR Urine pH 6.5 5-9 Urine Specific [place] 1.010 L 1.016-1.022 Urine Protein NEGATIVE NEGATIVE Urine Glucose (UA) NEGATIVE NEGATIVE Urine Ketones NEGATIVE NEGATIVE Urine Nitrite NEGATIVE NEGATIVE Urine Bilirubin NEGATIVE NEGATIVE Urine Urobilinogen 0.2 < = 1.0 MG/DL Urine Leukocyte Esterase TRACE H NEGATIVE Urine RBC (Auto) 1+ H NEGATIVE Urine RBC NONE /HPF Urine WBC 2-5 /HPF Urine Squamous Epithelial Cells 2-5 /HPF Urine Crystals NONE /LPF Urine Bacteria FEW H /HPF Urine Casts NONE /LPF Urine Mucus NEGATIVE /LPF Urine Culture Indicated YES (RODRICK JOSEPH DO) My Orders Orders - RODRICK JOSEPH DO Ed Iv/Invasive Line Start (01/04/23 18:09) Monitor-Rhythm Ecg Trace Only (01/04/23 18:09) Cbc No Diff (01/04/23 18:09) Hcg,Quantitative (01/04/23 18:09) (RODRICK JOSEPH DO) Medications Given in ED Current Medications Medications Dose Ordered Sig/Edward Route Start Time Stop Time Status Last Admin Dose Admin Cephalexin HCl 500 mg ONCE ONCE PO 01/04/23 21:45 01/04/23 21:46 DC 01/04/23 21:51 500 MG Ondansetron HCl 4 mg ONCE ONCE IVP 01/04/23 19:45 01/04/23 19:46 DC 01/04/23 19:38 4 MG Rho Immune Globulin 300 mcg ONCE ONCE IM/IV 01/04/23 18:45 01/04/23 18:46 DC 01/04/23 19:33 300 MCG (RODRICK JOSEPH DO) Vital Signs/I&O 01/04/23 18:13 Temp 37.2 Pulse 84 Resp 20 B/P (MAP) 135/75 (95) Pulse Ox 99 O2 Delivery Room Air (RODRICK JOSEPH DO) Vital Signs/I&O Capillary Refill : (JAIMIE BLACKMAN APRN) Progress Note : Progress Note Patient seen and evaluated, resting in bed, no acute distress. Based on exam and symptoms, differential diagnosis includes but is not limited to miscarriage, threatened miscarriage, subchorionic hemorrhage, vaginal infection, ectopic . Work-up initiated including CBC, hCG, Rh type, UA. Will order ultrasound if hCG is greater than 2500, since this is the requirement for optics technical officer to be called in. Will also perform a pelvic exam to evaluate bleeding. 2009 labs reviewed. CBC shows slightly elevated WBC 12.6. hCG 71,690. Urinalysis shows trace leukocytes, 1+ RBCs, 2-5 WBCs, 2-5 squamous epithelial cells, few bacteria. Pelvic exam performed. No active bleeding. Brown-colored discharge noted. Os appears closed, mildly irritated cervix. No cervical motion tenderness. Ultrasound ordered to rule out ectopic . Patient is Rh- negative, RhoGAM was ordered. 2140 ultrasound reviewed. It shows a single, viable, 7-week 1 day intrauterine fetus. heart rate is 153. There is no significant abnormality, no evidence of subchorionic hemorrhage. Results discussed with patient. Will treat patient for urinary tract infection. Patient instructed to call Dr. Barrios's office tomorrow. Patient is stable for discharge. Discharge instructions and return precautions provided. (JAIMIE BLACKMAN APRN) Diagnostic Imaging Diagonstic Imaging: Ultrasound Plain Films/CT/US/NM/MRI: pelvis Comments [facility]. [place], [place] NAME: GARRY AREVALO [facility] REC#: [id number] PT STATUS: REG ER : 1995 PHYSICIAN: JAIMIE BLACKMAN APRN ADMIT DATE: 01/04/23/ER Draft Date of Exam:01/04/23 US OB<14 WKS SNGLE W/TRANSVAG Clinical indications: Patient with vaginal bleeding in early . Comparison: None Procedure: Transabdominal and endovaginal real-time imaging is performed. Findings: LMP is 11/15/2022 GA (by LMP): 7 weeks, 1 day VITO (by LMP): 08/22/2023 GA (by AUA): 7 weeks, 1 day VITO (by AUA): 08/22/2023 There is a single, viable, intrauterine fetus present. heart rate is 153 beats per minute. The mean crown-rump length is 1.0 cm, compatible with 7 weeks, 1 days gestation. Yolk sac is visualized. There is an average amount of amniotic fluid present. The uterus measures 9.7 cm x 5.6 cm x 6.3 cm. The uterus shows no significant abnormality. There is no evidence of subchorionic hemorrhage. The right and left ovaries measure 2.2 cm x 1.1 cm x 2.0 cm and 2.9 cm x 2.9 cm x 2.9 cm, respectively. Both ovaries have normal spectral Doppler waveform and Doppler flow. Both ovaries show no significant abnormality. There is no evidence of adnexal mass or fluid in the cul-de-sac. Impression: 1: There is a single, viable, 7 week 1 day intrauterine fetus present which is concordant with LMP dates. heart rate is 153 bpm. 2: There is no significant abnormality seen on this exam. There is no evidence of subchorionic hemorrhage. Dictated on workstation # [id number] Dict: 01/04/232125 Trans: 01/04/232133 CV [id number] Interpreted by: CONNER MAYS MD Electronically signed by: (JAIMIE BLACKMAN APRN) Departure Impression Primary Impression: Vaginal bleeding affecting early Additional Impression: UTI (urinary tract infection) Disposition: 01 HOME, SELF-CARE Condition: Stable Departure-Patient Inst. Decision time for Depature: 21:43 (JAIMIE BLACKMAN APRN) Referrals: MEG HUSSEIN DO (PCP/Family) Primary Care Physician Patient Instructions: Bleeding in Early (DC) Add. Discharge Instructions: Complete full course of antibiotic as prescribed. Call Dr. Barrios's office tomorrow and let him know you are seen in the ER for vaginal bleeding. Return if you are saturating a heavy menstrual pad every hour for several hours, you develop dizziness or lightheadedness, or pass out while having vaginal bleeding, or any other new, concerning, or worsening symptoms. All discharge instructions reviewed with patient and/or family. Voiced understanding. Scripts Cephalexin (Cephalexin) 500 Mg Tablet 500 MG PO QID for 7 Days, #27 TAB 0 Refills Prov: JAIMIE BLACKMAN APRN 01/04/23 ATTENDING PHYSICIAN NOTE: I WAS PHYSICALLY PRESENT ER PHYSICIAN, BUT I WAS NOT INVOLVED IN ANY DECISION MAKING OR ANY CARE OF THIS PATIENT, AND I AM NOT COLLABORATING PHYSICIAN. (RODRICK JOSEPH DO) Copy Copies To 1: TANGELA BARRIOS BRITTANY R APRN Jan 04, 2023 18:22 RODRICK JOSEPH DO Jan 04, 2023 23:32
[2023-01-04 18:33] LABS: HEMATOCRIT 38 % (35-52); HEMOGLOBIN 13.3 g/dL (11.5-16.0); MEAN CORPUSCULAR HEMOGLOBIN 31 pg (25-34); MEAN CORPUSCULAR HGB CONC 35 g/dL (32-36); MEAN CORPUSCULAR VOLUME 90 fL (80-99); MEAN PLATELET VOLUME 9.4 fL (9.0-12.2); PLATELET COUNT 307 10^3/uL (130-400); WHITE BLOOD COUNT 12.6 10^3/uL (4.3-11.0)
[2023-01-04 18:46] LABS: BACTERIA,URINE FEW /HPF; BILIRUBIN,URINE NEGATIVE (NEGATIVE); CLARITY,URINE CLEAR; COLOR,URINE YELLOW; GLUCOSE, URINE (UA) NEGATIVE (NEGATIVE); KETONES,URINE NEGATIVE (NEGATIVE); LEUKOCYTE ESTERASE ,URINE TRACE (NEGATIVE); NITRITE,URINE NEGATIVE (NEGATIVE); PH,URINE 6.5 (5-9); PROTEIN,URINE NEGATIVE (NEGATIVE)
[2023-01-04] MEDS: RHO(D) IMMUNE GLOBULIN 300 MCG/2 ML SYRINGE IM/IV ONE (19:33)
[2023-01-04] MEDS: ONDANSETRON INJECTION 4 MG/2 ML (SDV) IVP ONE (19:38)
--- NOTE | 2023-01-04 21:35 | Diagnostic Imaging Report ---
Clinical indications: Patient with vaginal bleeding in early . Comparison: None Procedure: Transabdominal and endovaginal real-time imaging is performed. Findings: LMP is 11/15/2022 GA (by LMP): 7 weeks, 1 day VITO (by LMP): 08/22/2023 GA (by AUA): 7 weeks, 1 day VITO (by AUA): 08/22/2023 There is a single, viable, intrauterine fetus present. heart rate is 153 beats per minute. The mean crown-rump length is 1.0 cm, compatible with 7 weeks, 1 days gestation. Yolk sac is visualized. There is an average amount of amniotic fluid present. The uterus measures 9.7 cm x 5.6 cm x 6.3 cm. The uterus shows no significant abnormality. There is no evidence of subchorionic hemorrhage. The right and left ovaries measure 2.2 cm x 1.1 cm x 2.0 cm and 2.9 cm x 2.9 cm x 2.9 cm, respectively. Both ovaries have normal spectral Doppler waveform and Doppler flow. Both ovaries show no significant abnormality. There is no evidence of adnexal mass or fluid in the cul-de-sac. Impression: 1: There is a single, viable, 7 week 1 day intrauterine fetus present which is concordant with LMP dates. heart rate is 153 bpm. 2: There is no significant abnormality seen on this exam. There is no evidence of subchorionic hemorrhage. Dictated by: Dictated on workstation # [id number]
[2023-01-04] MEDS ORDERED: CEPH500T PO (21:44)
[2023-01-04] MEDS: CEPHALEXIN 250 MG CAPSULE PO ONE (21:51)
== END 2023-01-04 21:52 | disposition home or self-care (01) ==
LOC: EDUNIT# 17:59 → ER 18:00
DX: O20.9 Hemorrhage in early pregnancy, unspecified (principal); O23.41 Unspecified infection of urinary tract in pregnancy, first trimester; N39.0 Urinary tract infection, site not specified; Z3A.08 8 weeks gestation of pregnancy; Z88.0 Allergy status to penicillin
CPT/HCPCS: 36415; 76801; 76817; 81000; 84702; 84703; 85027; 87088; 87210; 87491; 87591